=== PATIENT | female | born 1950 | race Hispanic/Latino ===

== ENCOUNTER 2017-10-07 18:47 | Inpatient (IN) | payer MEDICARE, MEDICAID ==
[2017-10-07] MEDS ORDERED: Ondansetron ODT 4 MG TAB ONE (19:38)
[2017-10-07] MEDS ORDERED: Morphine 4 MG/ML VIAL ONE (19:38)
[2017-10-07 19:40] LABS: Mean Corpuscular Hemoglobin 30.8 pg (27.0-31.0); Mean Corpuscular Volume 90.5 fl (81.0-99.0); Mean Platelet Volume 9.2 fL (7.4-10.4); Platelet Count 163 thou/uL (130-400); RBC Distribution Width 12.3 % (11.5-14.5); Red Blood Cell (RBC) Count 4.55 mill/uL (4.20-5.40); White Blood Cell (WBC) Count 21.4 thou/uL (4.8-10.8)
[2017-10-07 19:45] LABS: Bilirubin Negative (Negative); Blood, Urine Small (Negative); Clarity CLOUDY (Clear); Glucose, Urine (Dipstick) 500 mg/dL (Negative); Leukocyte Moderate (Negative); Nitrite Negative (Negative); Protein, Urine (Dipstick) 300 mg/dL (Neg-Trace); Specific Gravity, Urine 1.023 (1.002-1.036); pH, Urine 7.5 (5.0-9.0)
[2017-10-07 19:48] LABS: Bacteria/HPF None Seen HPF (None Seen); Hyaline Casts/LPF 0-3 HYALINE CAST LPF (0-3 Hyaline); Pathc Cast-AUWi Flag 0.87 (0-2.49); Squamous Epithelial 0-3 HPF (0-3)
[2017-10-07 19:52] LABS: Yeast-AUWi Flag 95.5 (0-25.0)
[2017-10-07 19:58] LABS: Band 12 % (5-11); Lymphocytes 1 % (21-51); MDiff Complete? YES; Monocytes 4 % (0-10); Neutrophil 81 % (42-75); PLT Morphology Comment Appears Adequate; Reactive Lymphocytes 2 % (0-10)
[2017-10-07 19:59] LABS: ALT (SGPT) 24 U/L (8-55); AST (SGOT) 29 U/L (5-34); Albumin 3.9 g/dL (3.4-4.8); Alkaline Phosphatase 130 U/L (40-150); Anion Gap 12 mmol/L (10-20); BUN (Urea Nitrogen) 20 mg/dL (9.8-20.1); Bilirubin, Total 0.4 mg/dL (0.2-1.2); Calc. Creatinine Clearance 0 mL/min (70-130); Calcium 9.3 mg/dL (7.8-10.44); Carbon Dioxide 27 mmol/L (23-31); Chloride 100 mmol/L (98-107); Estimated GFR-MDRD 26; Globulin 3.1 g/dL (2.4-3.5); Glucose 248 mg/dL (80-115); Lipase 33 U/L (8-78); Potassium 3.6 mmol/L (3.5-5.1); Sodium 135 mmol/L (136-145)
[2017-10-07 20:01] LABS: RBC/HPF 0-3 HPF (0-3); Yeast-All Forms None Seen HPF (None Seen)
[2017-10-07] MEDS ORDERED: cefTRIAXone\\ROCEPHIN 1 GM VIAL ONE (21:07)
--- NOTE | 2017-10-07 21:10 | RAD ---
SINGLE VIEW OF THE CHEST 10/07/17 COMPARISON: None. HISTORY: Abdominal pain with vomiting. Hypoxia. FINDINGS: Single view of the chest shows a normal sized cardiomediastinal silhouette. There is no evidence of c onsolidation, mass, or pleural effusion. The bones are unremarkable. IMPRESSION: No evidence of acute cardiopulmonary disease. POS: [facility]
[2017-10-07 21:22] LABS: CKMB 1.1 ng/mL (0-6.6); Troponin I Less than 0.010 ng/mL (< 0.028)
--- NOTE | 2017-10-07 22:43 | CT ---
CT ABDOMEN AND PELVIS WITHOUT CONTRAST 10/07/17 COMPARISON: None. HISTORY: Lower abdominal pain with vomiting since last night. Vaginal bleeding. TECHNIQUE: Multiple contiguous axial images were obtained in a CT of the abdomen and pelvis without contrast. Co kenna reformats were performed. FINDINGS: The liver, gallbladder, kidneys, adrenal glands, spleen, and pancreas are unremarkable, although eval uation is limited without IV contrast. No free air, free fluid or stranding changes are seen in the a bdomen or pelvis. The large and small bowel are unremarkable. The reproductive organs are unremarkable. The appendix is normal. No abdominal or pelvic lymphadenopathy are seen. Degenerative changes are seen in the spine. The visualized inferior thorax and abdominal wall soft ti ssues are unremarkable. IMPRESSION: No evidence of acute intra-abdominal/pelvic abnormality. POS: [facility]
[2017-10-07 22:45] LABS: Lactic Acid 1.5 mmol/L (0.5-2.2)
[2017-10-07] MEDS ORDERED: Acetaminophen 325 MG TAB PO PRN (23:14)
[2017-10-07] MEDS ORDERED: Ondansetron ODT 4 MG TAB SL PRN (23:14)
[2017-10-07] MEDS ORDERED: Ondansetron HCl/PF 4 MG/2 ML Vial IVP PRN (23:14)
[2017-10-08] MEDS ORDERED: Dextrose 50% Abboject 50 ML SYRINGE SLOW IVP PRN (00:59)
[2017-10-08] MEDS ORDERED: Mag-Al 1200 mg/1200 mg/30 ML UDCUP PO PRN (00:59)
[2017-10-08] MEDS ORDERED: HumaLOG 300 UNITS/3 ML VIAL SC PRN (00:59)
[2017-10-08] MEDS ORDERED: Acetaminophen 325 MG TAB PO PRN (00:59)
[2017-10-08] MEDS ORDERED: Ondansetron HCl/PF 4 MG/2 ML Vial IVP PRN (00:59)
[2017-10-08] MEDS ORDERED: Dextrose 5% in Water 1,000 ML IV PRN (00:59)
[2017-10-08] MEDS ORDERED: Cefepime 1 GM in Sodium Chloride 0.9% 100 ML IVPB SCH (01:15)
[2017-10-08] MEDS ORDERED: Levofloxacin 750 mg/D5W 250 MG in Premix Bag 1 BAG IVPB SCH (01:15)
[2017-10-08] MEDS ORDERED: VANCOMYCIN IVPB PRN (01:49)
[2017-10-08] MEDS: Sodium Chloride 0.9% 1,000 ML IV SCH ×3 (02:06→15:28)
--- NOTE | 2017-10-08 04:17 | HP ---
REASON FOR ADMISSION: Sepsis, acute kidney injury, urinary tract infection. HISTORY OF PRESENT ILLNESS: The patient gives history of having severe vomiting episodes. She states she almost threw up nearly 20 times and was essentially gagging the last few times with nothing in her stomach. During one of these episodes around 4:00 p.m., patient passed blood from her vagina due to pressure from vomiting. She is menopausal from last 20 years or so now. No complaints of diarrhea. She has increased frequency of urination. The patient also mentions that from last 2 weeks she has had off and on swelling of her feet. No complaints of fever at home, but on arrival here had a temperature of 99 degrees. No complaints of cough or expectoration. The patient has some mild shortness of breath. PAST MEDICAL AND SURGICAL HISTORY: Hypertension, dyslipidemia, diabetes mellitus type 2, left foot surgery, depression. The patient is menopausal from last 20 years. CURRENT MEDICATIONS: Norvasc 5 mg p.o. q.a.m., simvastatin 5 mg p.o. at bedtime , omeprazole 40 mg p.o. daily, Humalog 75/25, 70 units q.a.m. and 40 units q.p.m. ALLERGIES: No known drug allergies. PERSONAL HISTORY: Does not abuse alcohol or drugs. No history of smoking. FAMILY HISTORY: Mother in her 80s from old age. Father in his 80s as well. He has had history of diabetes. CODE STATUS: FULL. Power of employee benefits attorney is her . REVIEW OF SYSTEMS: The following complete review of systems was negative, unless otherwise mentioned in the HPI or below: Constitutional: Weight loss or gain, ability to conduct usual activities. Skin: Rash, itching. Eyes: Double vision, pain. ENT/Mouth: Nose bleeding, neck stiffness, pain, tenderness. Cardiovascular: Palpitations, dyspnea on exertion, orthopnea. Respiratory: Shortness of breath, wheezing, cough, hemoptysis, fever or night sweats. Gastrointestinal: Poor appetite, abdominal pain, heartburn, nausea, vomiting, constipation, or diarrhea. Genitourinary: Urgency, frequency, dysuria, nocturia. Musculoskeletal: Pain, swelling. Neurologic/Psychiatric: Anxiety, depression. Allergy/Immunologic: Skin rash, bleeding tendency. PHYSICAL EXAMINATION: GENERAL: The patient is a 67-year-old female who is currently not in any acute distress, but is lethargic. VITAL SIGNS: Blood pressure 186/84, pulse 84 per minute, respiratory rate 20 per minute, temperature 99 degrees Fahrenheit, saturating 91% on room air. NECK: Supple, no elevated JVD. HEENT: Eyes: Extraocular muscles intact. Pupils reacting to light. Oral cavity: Mucous membranes are dry. No exudates or congestion. CARDIOVASCULAR SYSTEM: S1, S2 heard. Regular rhythm. RESPIRATORY SYSTEM: Air entry 1+ bilateral. No rales or rhonchi. ABDOMEN: Soft, bowel sounds heard. No tenderness, rigidity, or guarding. No CVA angle tenderness. EXTREMITIES: No peripheral edema or calf tenderness. VASCULAR SYSTEM: Peripheral pulses 1+ bilateral, no ischemic ulcerations or gangrene. CENTRAL NERVOUS SYSTEM: No gross focal deficits seen. The patient is lethargic , but oriented well. PSYCHIATRIC SYSTEM: The patient's mood is euthymic. No hallucinations or delusions. LABORATORY DATA AND X-RAY FINDINGS: Chest x-ray done shows no acute cardiopulmonary abnormalities. CT of the abdomen and pelvis without contrast done shows no acute abnormality. Has a white count of 21, H and H 14 and 41, platelet count 163 with 81% neutrophils and 12% bands. Sodium 135, serum bicarbonate 27, BUN 20, creatinine 1.9, glucose 248. Lactic acid 2.9. Liver enzymes are within normal limits. Troponin I is less than 0.01. CK-MB 1.1. Albumin is 3.9. Lipase is 33. UA shows moderate leukoesterase, with greater than 50 wbc's. Stool occult blood is negative. CLINICAL IMPRESSION AND PLAN: The patient will be admitted to medical floor for sepsis, acute kidney injury, urinary tract infection, moderate to severe dehydration with intractable nausea and vomiting with no diarrhea. Blood and urine cultures have been obtained in the ER. We will place her on broad spectrum antibiotics including cefepime, Levaquin, and vancomycin for now until preliminary cultures are back. She has gotten nearly 2 liters of bolus in the ER and we will place her on normal saline at 80 mL per hour. She is saturating around 91% on room air and we will not volume overload her for now. We will obtain echo with 2D Doppler for LV function. The patient has postmenopausal bleeding and we will obtain ultrasound of the pelvis complete both abdominal and transvaginal. We will also consult LACROSSE COACH investigation division sergeant for the same. We will continue her Norvasc and reduce her 70/30 insulin to 25 units subcutaneously twice daily for now. We will continue to closely monitor her for any hemodynamic compromise. Please note I have seen and examined patient on 2017. TIFFANY
[2017-10-08 05:22] VITALS: BMI 34.0
[2017-10-08 05:54] LABS: Anion Gap 11 mmol/L (10-20); BUN (Urea Nitrogen) 21 mg/dL (9.8-20.1); Calc. Creatinine Clearance 52 mL/min (70-130); Calcium 8.8 mg/dL (7.8-10.44); Carbon Dioxide 23 mmol/L (23-31); Chloride 107 mmol/L (98-107); Estimated GFR-MDRD 38; Glucose 249 mg/dL (80-115); Potassium 4.6 mmol/L (3.5-5.1); Sodium 136 mmol/L (136-145)
[2017-10-08 06:28] LABS: Band 14 % (5-11); Hemoglobin 12.8 g/dL (12.0-16.0); Lymphocytes 8 % (21-51); MDiff Complete? YES; Mean Corpuscular HGB CONC 33.3 g/dL (32.0-36.0); Mean Corpuscular Hemoglobin 30.6 pg (27.0-31.0); Mean Corpuscular Volume 91.9 fl (81.0-99.0); Mean Platelet Volume 9.8 fL (7.4-10.4); Monocytes 6 % (0-10); Neutrophil 72 % (42-75); Platelet Count 164 thou/uL (130-400); RBC Distribution Width 12.4 % (11.5-14.5); Red Blood Cell (RBC) Count 4.17 mill/uL (4.20-5.40); White Blood Cell (WBC) Count 25.1 thou/uL (4.8-10.8)
[2017-10-08] MEDS: Docusate 100 MG CAP PO SCH ×2 (08:46→20:09)
[2017-10-08] MEDS: Amlodipine 5 MG TAB PO SCH (08:47)
[2017-10-08] MEDS: Insulin NPH/Reg Insulin Hm 300 UNITS/3 ML VIAL SC SCH ×2 (08:48→20:28)
[2017-10-08] MEDS ORDERED: Famotidine 20 MG TAB PO SCH (09:00)
[2017-10-08] MEDS ORDERED: Enoxaparin Sodium 30 MG/0.3 ML SYRINGE SC SCH (09:00)
[2017-10-08] MEDS ORDERED: Vancomycin HCl 1 GM in Sodium Chloride 0.9% 250 ML 250 ML IVPB SCH (09:00)
[2017-10-08] MEDS: Guaifenesin DM 100-10/5 ML UDCUP PO PRN (09:56)
--- NOTE | 2017-10-08 10:27 | ULT ---
PELVIC ULTRASOUND: History: Vaginal bleeding. Menopausal female. Comparison: CT abdomen/pelvis 10-07-17. Technique: Endovaginal imaging of the pelvis was performed. Ovaries were interrogated with grayscale, color flow, color doppler imaging and spectral waveform analysis. FINDINGS: The uterus is identified. There are patchy echogenic areas suggesting calcifications, corresponding t o recent CT. Endometrium is poorly defined. No obvious myometrial masses. Uterus measures 8.2 x 4.3 x 4.3 cm. Right ovary is not appreciated. Left ovary has a normal echotexture measuring 1.2 x 1.2 x 2.4 cm. Ovarian doppler: Vascular flow to the left ovary. IMPRESSION: 1. No obvious masses in the adnexa. 2. Suboptimal evaluation of the uterus. No obvious myometrial masses. Echogenic foci compatible with recent calcification. 3. Suboptimal evaluation of the endometrium. Given patient's history, consider pelvic MRI. POS: [facility]
[2017-10-08] MEDS ORDERED: Promethazine HCl 25 MG/ML VIAL IM/IV PRN (12:10)
[2017-10-08] MEDS: HumaLOG 300 UNITS/3 ML VIAL SC PRN ×2 (15:18→17:03)
--- NOTE | 2017-10-08 16:08 | PDOC.PN ---
- Subjective Encounter Start Date: 10/08/17 Encounter Start Time: 16:06 patient still very nauseous. no abd pain. chest pain or SOB. she has not vomited but feels she might. - Objective Resuscitation Status: Resuscitation Status FULL:Full Resuscitation MAR Reviewed: Yes Vital Signs & Weight: Vital Signs (12 hours) Temp Pulse Resp BP BP BP Pulse Ox 10/08/17 12:45 98.1 F 71 18 151/68 H 95 10/08/17 08:47 74 167/73 H 10/08/17 08:30 97.9 F 74 16 167/73 H 95 10/08/17 08:25 97.9 F 74 16 95 Weight Weight 186 lb 1.6 oz I&O: 10/07/17 10/08/17 10/09/17 06:59 06:59 06:59 Intake Total 1010 120 Balance 1010 120 Result Diagrams: 10/08/17 05:09 10/08/17 05:09 Additional Labs: Accuchecks 10/08/17 10/08/17 11:59 05:11 POC Glucose 262 H 224 H Phys Exam - Physical Examination Constitutional: NAD HEENT: moist MMs Neck: no nodes, no JVD, supple Respiratory: no wheezing, no rales, no rhonchi Cardiovascular: RRR, no significant murmur, no rub Gastrointestinal: soft, non-tender, no distention Musculoskeletal: no edema, pulses present Neurological: non-focal, normal sensation, moves all 4 limbs Psychiatric: normal affect, A&O x 3 Dx/Plan (1) Sepsis Code(s): A41.9 - SEPSIS, UNSPECIFIED ORGANISM Status: Acute Qualifiers: Sepsis type: sepsis due to unspecified organism Qualified Code(s): A41.9 - Sepsis, unspecified organism Comment: on broad spectrum abx of vanc/cefepime. likely urinary source. Bcx so far negative. Urine cx with evidence of contamination. will re-collect. white count increased today. (2) Diabetes mellitus Code(s): E11.9 - TYPE 2 DIABETES MELLITUS WITHOUT COMPLICATIONS Status: Acute Qualifiers: Diabetes mellitus type: type 2 Comment: continue 70/30 insulin (3) RICHELLE (acute kidney injury) Code(s): N17.9 - ACUTE KIDNEY FAILURE, UNSPECIFIED Status: Acute Comment: continue to hydrate. likely 2/2 to sepsis. and dehydration (4) HTN (hypertension) Code(s): I10 - ESSENTIAL (PRIMARY) HYPERTENSION Status: Acute Comment: continue norvasc (5) HLD (hyperlipidemia) Code(s): E78.5 - HYPERLIPIDEMIA, UNSPECIFIED Status: Acute Qualifiers: Hyperlipidemia type: pure hypercholesterolemia Qualified Code(s): E78.00 - Pure hypercholesterolemia, unspecified; E78.0 - Pure hypercholesterolemia Comment: continue statin - Plan cont current plan of care, plan discussed w/ family, continue antibiotics * . -continue IV vanc/cefepime. watch white count. it did trend up today. continue hydration with IVF monitor Cr HTN: cont norvasc vaginal bleeding: FLOAT REMOVER consult appreciated type II diabetes: continue 70/30 insulin HLD: cont statin. re-collect Ucx as first one appears to be contaminated.
--- NOTE | 2017-10-08 18:53 | CON ---
DATE OF CONSULTATION: 10/08/2017 TIME OF EVALUATION: Roughly 15:55-16:10 LOCATION: [facility] bed 135 in the observation shankar/oncology shankar. REASON FOR EVALUATION: Postmenopausal vaginal bleeding (one episode) by report REQUESTING PHYSICIAN: Dr. Hermila Romero HISTORY OF PRESENT ILLNESS: This is a 67-year-old postmenopausal female who has been admitted for pe rsistent nausea/vomiting by Internal Medicine. She has been receiving antiemetics and IV hydration. Her admission diagnoses according to the hospital is suspected sepsis, acute renal injury, UTI, and moderate to severe dehydration with intractable nausea and vomiting. I was asked to evaluate the pat ient because according to the patient's history yesterday during the intensive vomiting episodes, the re was a small amount of vaginal bleeding after cleaning the vaginal area with tissue. According to the patient, this happened one time yesterday and has not happened since. There has also been no his tory of persistent postmenopausal vaginal bleeding. She is not on hormone replacement therapy and spears s not seen a bell spinner sousaphones for 7 years. She has been menopausal for approximately 20 years. There ar e no complaints of diarrhea or vaginal burning or abnormal vaginal discharge. The patient states yamilet t she has had fevers at home prior to arrival, but on arrival here in the emergency department, she h ad a temperature of 99 degrees. She does not acknowledge any trauma to the vaginal area. PAST MEDICAL AND SURGICAL HISTORY: Includes hypertension, dyslipidemia, diabetes type 2, left foot s urgery, and past history of depression. GYNECOLOGICAL HISTORY: The patient is not on hormone replacement therapy and has been menopausal for about 20 years. CURRENT MEDICATIONS: Include Norvasc, simvastatin, omeprazole, Humalog. ALLERGIES: None. SOCIAL HISTORY: Negative for alcohol or drug use. No history of smoking. REVIEW OF SYSTEMS: Complete review of systems was performed and is otherwise negative unless specifi ed in the HPI. PHYSICAL EXAMINATION: VITAL SIGNS: Temperature of 97.9-98.1, blood pressures are elevated at 151/68 to a maximum value of 167/73. Pulse is in the 70s-80s. I evaluated the patient at bedside with a nurse present as motion pictures cartoonist. Abdomen was soft and nontender . Inspection of the external genitalia revealed no evidence of bleeding and outside of the external genital atrophy, no overt abnormalities. There was no vaginal bleeding or lacerations or ulcers. On e finger insertion into the vaginal canal was done to palpate for any abnormalities, masses, or evide nce of blood. No masses were palpated and no blood was found. Speculum examination was not performe d as the patient was lying down in the hospital bed and foot rests/stirrups were not available. LABORATORY DATA: The patient had an initial white blood cell count of 21 yesterday and today, white blood cell count is 25. While initially there was a left shift yesterday. Today, the neutrophils ar e 72, but she does have bandemia with total bands at 14 today. On laboratory assessment, her creatin ine on admission was 1.9 and today, repeat value was 1.38. Troponin I was normal. AST and ALT were normal. The initial lactic acid was elevated at 2.9, but on recheck yesterday was 1.5. On the urina lysis, glucose was 500, urine protein was 300, leuk esterase was negative, there was greater than 50 white blood cells in the urine, but no bacteria actually seen. On microbiology, a urine culture was submitted with preliminary results showing greater than 100,000 mixed skin and enteric ping being pr esent. Laboratory report shows possible contamination from improper collection or delayed transport. Blood cultures have shown no growth to date. Occult blood of the stool was also sent, which was ne gative for fecal occult blood. On ultrasound performed on 10/08/2017, ultrasound showed no obvious masses in the adnexa. There was suboptimal evaluation of the uterus, but no obvious myometrial masses. The endometrium was poorly de fined. There was no obvious myometrial abnormalities. The uterus measured 8 x 4 x 4 cm. Yesterday, the abdominal pelvic CT scan, which was ordered by the other physicians showed no evidence of acute intra-abdominal or pelvic abnormality. ASSESSMENT: This is a postmenopausal patient with severe nausea and vomiting of unclear etiology, be ing evaluated and treated by Internal Medicine. She had one episode of "vaginal blood" after wiping with tissue yesterday after an episode of emesis. If this was of vaginal etiology, vaginal atrophy i s likely the cause. There is no evidence of vaginal/cervical uterine masses at this time. PLAN: 1. Information given to the patient and her family. 2. Case reviewed with the patient's nurse as well. 3. If this occurs again, we will follow up with [facility] [place] or any area WORKING MANAGER for a more comprehensive vaginal examination. 4. Current evaluation was limited by the patient not having a bed of stirrups/foot rest. 5. No acute gynecological pathology at this time. 6. No evidence of acute postmenopausal bleeding.
[2017-10-08] MEDS: Famotidine 20 MG TAB PO SCH ×2 (20:07→20:09)
[2017-10-08] MEDS: Simvastatin 5 MG TAB PO SCH (20:10)
[2017-10-09] MEDS: Cefepime 1 GM in Sodium Chloride 0.9% 100 ML IVPB SCH ×2 (00:09→23:46)
[2017-10-09] MEDS ORDERED: Cefepime 1 GM in Sodium Chloride 0.9% 100 ML IVPB SCH (01:00)
[2017-10-09 01:53] LABS: Vancomycin, Random 14.2 ug/mL (See Comment)
[2017-10-09] MEDS ORDERED: Vancomycin HCl 750 MG in Sodium Chloride 0.9% 250 ML 250 ML IVPB SCH (02:00)
[2017-10-09 05:35] LABS: Band 1 % (5-11); Hemoglobin 12.3 g/dL (12.0-16.0); Lymphocytes 19 % (21-51); MDiff Complete? YES; Mean Corpuscular HGB CONC 32.9 g/dL (32.0-36.0); Mean Corpuscular Hemoglobin 30.5 pg (27.0-31.0); Mean Platelet Volume 9.1 fL (7.4-10.4); Monocytes 4 % (0-10); Neutrophil 76 % (42-75); PLT Morphology Comment Appears Adequate; Platelet Count 154 thou/uL (130-400); RBC Distribution Width 12.6 % (11.5-14.5); Red Blood Cell (RBC) Count 4.03 mill/uL (4.20-5.40); White Blood Cell (WBC) Count 15.8 thou/uL (4.8-10.8)
[2017-10-09 05:39] LABS: Anion Gap 8 mmol/L (10-20); BUN (Urea Nitrogen) 18 mg/dL (9.8-20.1); Calc. Creatinine Clearance 57 mL/min (70-130); Calcium 8.7 mg/dL (7.8-10.44); Carbon Dioxide 25 mmol/L (23-31); Chloride 110 mmol/L (98-107); Estimated GFR-MDRD 42; Glucose 150 mg/dL (80-115); Potassium 4.6 mmol/L (3.5-5.1); Sodium 138 mmol/L (136-145)
[2017-10-09] MEDS: Amlodipine 5 MG TAB PO SCH (09:05)
[2017-10-09] MEDS: Docusate 100 MG CAP PO SCH ×2 (09:05→21:19)
[2017-10-09] MEDS: Insulin NPH/Reg Insulin Hm 300 UNITS/3 ML VIAL SC SCH ×2 (09:06→21:17)
[2017-10-09] MEDS: Enoxaparin Sodium 40 MG/0.4 ML SYRINGE SC SCH (09:06)
[2017-10-09] MEDS: Famotidine 20 MG TAB PO SCH ×2 (09:06→21:19)
[2017-10-09] MEDS: Guaifenesin DM 100-10/5 ML UDCUP PO PRN (09:07)
[2017-10-09] MEDS: Sodium Chloride 0.9% 1,000 ML IV SCH ×2 (09:13→14:59)
[2017-10-09] MEDS: HumaLOG 300 UNITS/3 ML VIAL SC PRN ×2 (12:46→16:55)
--- NOTE | 2017-10-09 12:50 | MRI ---
MRI PELVIS WITH AND WITHOUT CONTRAST: HISTORY: Postmenopausal bleeding. COMPARISON: The ultrasound of 10/08/17. FINDINGS: Endometrium is thin, measuring less than 4 mm. No intramural fibroid. No subsclerosal fibroids appr eciated. There are few nabothian cysts of the cervix, although the cervix normal. No abnormal focal area of e nhancement within the endometrial cavity. Normal enhancement of the mucosa of the cervix. 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 This area is T2 hypointense sugges ting a flow void. It measures approximately 9 mm. Left ovary is along the posterior margin of the left side of the uterus. No abnormal ovarian mass. There is advanced degenerative disk space disease at L4-5 along with facet arthrosis causing moderate to severe left and moderate right-side neural foraminal narrowing. There is also some narrowing of the thecal sac measuring approximately 8 mm. Visualized rectum has a focal area of thickening and na rrowing approximately 6 cm from the anal verge. No adenopathy. The uterine junctional zone is normal. No evidence of adenomyosis. Appropriate flow voids of the il iac vessels. IMPRESSION: 1. Normal appearance of the endometrium. No endometrial or cervical mass is appreciated. 2. Abnormal nearly circumferential thickening of the rectum 6 cm from the anal verge. This is bev rning for a possible malignant process. Recommend correlation with patient's colonoscopic evaluation . 3. Moderate degenerative disk space disease of the lower lumbar spine. POS: [facility]
--- NOTE | 2017-10-09 15:50 | PDOC.PN ---
- Subjective Encounter Start Date: 10/09/17 Encounter Start Time: 15:48 patient is feeling much better. no more nausea or vomiting. she is eating. no SOB, chills, - Objective Resuscitation Status: Resuscitation Status FULL:Full Resuscitation MAR Reviewed: Yes Vital Signs & Weight: Vital Signs (12 hours) Temp Pulse Resp BP BP Pulse Ox 10/09/17 09:05 75 184/74 H 10/09/17 07:30 98.3 F 75 18 184/74 H 98 Weight Weight 186 lb 1.6 oz I&O: 10/08/17 10/09/17 10/10/17 06:59 06:59 06:59 Intake Total 1010 1820 Balance 1010 1820 Result Diagrams: 10/09/17 05:05 10/09/17 05:05 Additional Labs: Accuchecks 10/09/17 10/09/17 10/08/17 11:47 05:32 19:56 POC Glucose 226 H 141 H 338 H 10/08/17 16:52 POC Glucose 339 H Phys Exam - Physical Examination HEENT: moist MMs, sclera anicteric Neck: no nodes, no JVD, supple Respiratory: no wheezing, no rales, no rhonchi Cardiovascular: RRR, no significant murmur, no rub Gastrointestinal: soft, non-tender, no distention Musculoskeletal: no edema, pulses present Lymphatic: no nodes Dx/Plan (1) Sepsis Code(s): A41.9 - SEPSIS, UNSPECIFIED ORGANISM Status: Acute Qualifiers: Sepsis type: sepsis due to unspecified organism Qualified Code(s): A41.9 - Sepsis, unspecified organism Plan: white count down. d/c vanc/levaquin. cont cefepime. however, Ucx repeat NGTD. first Ucx with contamination, peripheral Bcx negative Comment: better/. will d/c vanc/levaquin today. leave cefepime. . likely urinary source. Bcx so far negative. Urine cx with evidence of contamination. repeat Ucx unfortunately shows no growth given already on abx . WBC count decreased today (2) Diabetes mellitus Code(s): E11.9 - TYPE 2 DIABETES MELLITUS WITHOUT COMPLICATIONS Status: Acute Qualifiers: Diabetes mellitus type: type 2 Comment: continue 70/30 insulin (3) RICHELLE (acute kidney injury) Code(s): N17.9 - ACUTE KIDNEY FAILURE, UNSPECIFIED Status: Acute Comment: continue to hydrate. likely 2/2 to sepsis. and dehydration . Cr improved today (4) HTN (hypertension) Code(s): I10 - ESSENTIAL (PRIMARY) HYPERTENSION Status: Acute Qualifiers: Hypertension type: essential hypertension Qualified Code(s): I10 - Essential (primary) hypertension Comment: continue norvasc (5) HLD (hyperlipidemia) Code(s): E78.5 - HYPERLIPIDEMIA, UNSPECIFIED Status: Acute Qualifiers: Hyperlipidemia type: pure hypercholesterolemia Qualified Code(s): E78.00 - Pure hypercholesterolemia, unspecified; E78.0 - Pure hypercholesterolemia Comment: continue statin (6) Abn findings-GI tract Code(s): R93.3 - ABNORMAL FINDINGS ON DX IMAGING OF PRT DIGESTIVE TRACT Status : Acute Comment: pelvic MRI demonstrated abn thickening of area of rectum/ anus. will consult GI. - Plan cont current plan of care, continue antibiotics * . downgrade abx with d/c of vanc/levaquin. cont cefepime. monitor white count. unfortunately Ucx all negative. will consult GI for abn on pelvic MRI. monitor renal function. hopefully d/c on orals. may need to empirically treat with cipro or vantin. f/u GI recs.
[2017-10-09] MEDS ORDERED: hydrALAZINE 20 MG/ML VIAL SLOW IVP PRN (20:35)
[2017-10-09] MEDS: Simvastatin 5 MG TAB PO SCH (21:19)
[2017-10-10] MEDS: Sodium Chloride 0.9% 1,000 ML IV SCH (02:00)
--- NOTE | 2017-10-10 03:13 | CON ---
DATE OF CONSULTATION: 10/09/2017 REASON FOR CONSULTATION: Abnormal GI imaging. CONSULTING PHYSICIAN: Hermila Romero MD HISTORY OF PRESENT ILLNESS: The patient is a 67-year-old female with past medical history of hyperte nsion, hyperlipidemia, diabetes, and depression who was initially admitted with increased nausea, vom iting, and abdominal pain. Per chart review, the patient was admitted with severe nausea and vomitin g, throwing up approximately 20 times prior to admission with expression of nonbloody emesis. With t he acute onset of this nausea and vomiting, she was also noted to have increased periumbilical abdomi nal pain and polyuria that prompted admission. On admission, she was noted to have a significantly e levated white blood cell count with increased neutrophils and bandemia concerning for probable infect ion. She was subsequently placed on broad-spectrum antibiotics as well as IV fluid administration, a nd has since been responding well to treatment over the last 24-48 hours. Currently, she states that she does continue to have some mild periumbilical abdominal pain, but it has much improved since adm ission. Currently, denies any nausea, vomiting, fevers, chills, dysphagia, odynophagia, or diarrhea. She has not been able to have a bowel movement since admission, but has been able to pass flatus. However, during the course of her hospitalization, she did have some mildly increased vaginal bleedin g that prompted the obtaining of an MRI of her abdomen and pelvis. Based on the imaging findings on that, there was some mild thickening of the rectal wall and narrowing 6 cm from the anal verge concer carmen for possible colonic pathology. REVIEW OF SYSTEMS: A 10-category review of systems was obtained with all responses negative except f or the pertinent positives as listed in the HPI. PAST MEDICAL HISTORY: As per HPI. PAST SURGICAL HISTORY: Left foot surgery. FAMILY HISTORY: She denies any GI malignancies. SOCIAL HISTORY: Currently denies any tobacco, alcohol, or illicit drug use. OUTPATIENT MEDICATIONS: Reviewed. ALLERGIES: No known drug allergies. PHYSICAL EXAMINATION: VITAL SIGNS: Temperature 98.8, pulse 81, blood pressure 193/74, respiratory rate 16, saturating 98% on room air. GENERAL: The patient is lying in bed in no acute distress. Alert and oriented x4. Chinese speaking only. NECK: Supple. No JVD noted. CARDIOVASCULAR: Regular rate and rhythm with no discernible murmurs, gallops, or rubs. RESPIRATORY: Clear to auscultation bilaterally with no discernible wheezes or rales. ABDOMEN: Normoactive bowel sounds. Soft, nondistended, but protuberant abdomen. Tenderness to palp ation in the periumbilical region. EXTREMITIES: 1+ bilateral lower extremity edema extending to mid contreras. LABORATORY DATA: CBC with a white blood cell count of 15.8, hemoglobin 12.3, hematocrit 37.5, platel ets 154. Chemistry with a sodium of 138, potassium 4.6, chloride 110, CO2 of 25, BUN 18, creatinine 1.26, glucose 150. IMAGING DATA: CT of the abdomen and pelvis was obtained on 10/07/2017 showing no acute intra-abdomin al or pelvic abnormality; however, MRI of the pelvis obtained on 10/09/2017 showed visualized rectum has a focal area of thickening and narrowing approximately 6 cm from the anal verge, no adenopathy. ASSESSMENT AND PLAN: The patient is a 67-year-old female with past medical history of hypertension, hyperlipidemia, diabetes, and depression presenting with abnormal gastrointestinal imaging. Abnormal gastrointestinal imaging. The patient initially presented with complaints of nausea, vomiti ng, and abdominal pain with an elevated white blood cell count with bandemia concerning for infectiou s process and/or sepsis. She has responded well to therapy including broad-spectrum antibiotics and IV fluid administration. However, during the course of this hospitalization, she was noted to have m ildly increased vaginal bleeding that prompted the MRI of her pelvis. On examination of her pelvis, it was noted that she might have some focal area of thickening and narrowing at 6 cm past the anal ve rge. Upon review of the patient's chart, she had a colonoscopy performed in 04/2015 with the finding s of only a small cecal and rectal polyp, both measuring less than 5 mm in size. The pathology repor t for the rectal polyp showed a diminutive sessile serrated adenoma that was completely excised withi n the chosen plane of sectioning. On rectal examination today, the patient does not have any polypoi d masses or increased pain with the digital rectal examination, but rather had a moderate amount of s olid brown stool within the rectal vault. At this point, given lack of findings on CT; possible find ings on MRI; no abnormalities noted on digital rectal examination; and no complaints of diarrhea, con stipation, or obstruction that might contribute to the findings seen on MRI, the MRI findings are mos t likely artifactual. RECOMMENDATIONS: 1. Continue to treat the patient as you are doing with IV fluids and broad-spectrum antibiotics for a probable infectious etiology of her abdominal pain. 2. Colonoscopy is not indicated at this time given the fairly negative findings on colonoscopy in , negative rectal examination, and conflicting imaging studies during this admission. 3. We would have the patient follow up in the GI clinic within 3 weeks of discharge for further eval uation and consider repeat colonoscopy at that time based on MRI findings. We will sign off at this time. Please call with any additional questions.
[2017-10-10 04:22] LABS: Anion Gap 10 mmol/L (10-20); BUN (Urea Nitrogen) 14 mg/dL (9.8-20.1); Calc. Creatinine Clearance 65 mL/min (70-130); Calcium 8.8 mg/dL (7.8-10.44); Carbon Dioxide 26 mmol/L (23-31); Chloride 107 mmol/L (98-107); Estimated GFR-MDRD 49; Glucose 88 mg/dL (80-115); Potassium 4.1 mmol/L (3.5-5.1); Sodium 139 mmol/L (136-145)
[2017-10-10 04:45] LABS: Eosinophils 1 % (0-10); Hemoglobin 12.6 g/dL (12.0-16.0); Lymphocytes 21 % (21-51); MDiff Complete? YES; Mean Corpuscular HGB CONC 33.1 g/dL (32.0-36.0); Mean Corpuscular Hemoglobin 30.3 pg (27.0-31.0); Mean Corpuscular Volume 91.7 fl (81.0-99.0); Mean Platelet Volume 8.7 fL (7.4-10.4); Monocytes 5 % (0-10); Neutrophil 72 % (42-75); PLT Morphology Comment Appears Adequate; Platelet Count 158 thou/uL (130-400); RBC Distribution Width 12.1 % (11.5-14.5); RBC Morphology Normal; Reactive Lymphocytes 1 % (0-10); Red Blood Cell (RBC) Count 4.15 mill/uL (4.20-5.40); White Blood Cell (WBC) Count 11.5 thou/uL (4.8-10.8)
[2017-10-10 08:32] VITALS: TEMP 98.6
[2017-10-10] MEDS: Docusate 100 MG CAP PO SCH (09:17)
[2017-10-10] MEDS: Famotidine 20 MG TAB PO SCH (09:17)
[2017-10-10] MEDS: Amlodipine 5 MG TAB PO SCH (09:18)
[2017-10-10] MEDS: Enoxaparin Sodium 40 MG/0.4 ML SYRINGE SC SCH (09:18)
[2017-10-10] MEDS: Insulin NPH/Reg Insulin Hm 300 UNITS/3 ML VIAL SC SCH (09:19)
[2017-10-10 09:27] VITALS: BP 150/74
--- NOTE | 2017-10-10 10:46 | DIS ---
DATE OF ADMISSION: 10/07/2017 DATE OF DISCHARGE: 10/10/2017 PRIMARY CARE PROVIDER: Bill Infante MD. DISCHARGE DIAGNOSES: Urinary tract infection, sepsis syndrome, acute kidney failure, resolved, diabe myra mellitus type 2, hypertension. DISCHARGE MEDICATIONS: The same as her home medications except for the Omnicef 300 mg p.o. b.i.d. fo r 14 days. She is also on Zocor 5 mg a day, omeprazole 40 mg a day, Norvasc 5 mg a day, Humulin 75/2 5 at 70 a.m. and 40 p.m. ALLERGIES: None. PENDING AT THE TIME OF DISCHARGE: Urine culture. CODE STATUS: FULL. DIET: Diabetic. HOSPITAL COURSE: The [facility] with nausea, vomiting, in creased urination with a history of hypertension, dyslipidemia, diabetes. She was admitted. Blood a nd urine cultures ordered and started on broad spectrum antibiotics and IV fluids. Her initial urine culture was greater than 100,000 mixed skin and enteric ping. Blood cultures were no growth. Stoo l for occult blood was negative. Urine culture done 10/08/2017 is negative at present. Laboratory d dunia, initial lactic acid 2.9 with IV fluids, lactic acid came down to 1.5 on the day of admission, cr eatinine is now 1.10. She had an elevated white count of 21,000 with a left shift. This has come do wn to 11,500. The patient states she feels well. Vital signs, temperature 98.6 with no fever since admission, pulse 81, respirations 18, O2 sat 92. Cardiorespiratory exam done by myself is clear. No focal findings. Good breath sounds, heart sounds regular with no murmurs. I discussed the situation with the family. They are comfortable with her going home. She is being discharged on Omnicef 300 mg p.o. b.i.d. I suspect the patient's contamina tion of her initial culture plus the multiple antibiotics she has been on before the second cultures rendered the second culture useless. Multiple studies were done during her hospital stay including a bdominal pelvic CT, which showed no intra-abdominal pelvic abnormality. Pelvic ultrasound, no masses in the adnexa. Incomplete evaluation of the uterus. Pelvic MRI was done, which revealed a normal u terus with no endometrial or cervical mass, some thickening of the rectum at 6 cm. A consultation [facility] Dr. Anthony Mathias was obtained. He recommended no further studies. She is being discharged on ora l antibiotics. Follow up in [address] Infante. FINAL DIAGNOSES: 1. Sepsis, most likely secondary to urinary tract infection, urinary tract infection culture negativ e today. 2. Acute kidney failure, resolved. 3. Diabetes mellitus type 2. 4. Hypertension. 5. Lactic acidosis, resolved.
== END 2017-10-10 11:07 | disposition home or self-care (01) | DRG 872 ==
LOC: ERS 18:47 → ONC 22:18
PROVIDERS: ADMIT Internal Medicine; ATTEND Internal Medicine
DX: A41.9 Sepsis, unspecified organism (principal); N17.9 Acute kidney failure, unspecified; N39.0 Urinary tract infection, site not specified; I10 Essential (primary) hypertension; E86.0 Dehydration; Z79.899 Other long term (current) drug therapy; E78.5 Hyperlipidemia, unspecified; E11.9 Type 2 diabetes mellitus without complications; F31.9 Bipolar disorder, unspecified; Z79.84 Long term (current) use of oral hypoglycemic drugs; R93.3 Abnormal findings on diagnostic imaging of other parts of digestive tract
CPT/HCPCS: 36415; 36416; 71045; 72197; 74176; 76856; 80048; 80053; 80202; 81003; 81015; 82274; 82553; 83605; 83690; 84484; 85007; 85025; 85027; 87040; 87086; 93005; 93306; 96361; 96365; 96375; A4216; J0360; J0692; J0696; J1650; J1956; J2270; J2405; J2550; J3370; J7050; Q0162

== ENCOUNTER 2018-03-13 09:27 | Outpatient (CLI) | payer MEDICARE, MEDICAID | END 2018-03-13 09:28 | disposition home or self-care (01) | LOC: BICMAMMO 09:27 | PROVIDERS: ATTEND Internal Medicine | DX: Z12.31 Encounter for screening mammogram for malignant neoplasm of breast (principal) | CPT/HCPCS: 77063; 77067 ==

== ENCOUNTER 2019-01-10 09:13 | Inpatient (IN) | payer MEDICARE, MEDICAID ==
[2019-01-10] MEDS ORDERED: Famotidine 20 MG TAB ONE (10:14)
[2019-01-10 10:26] LABS: #Eosinphils 0.2 thou/uL (0.0-0.7); #Lymphocytes 2.6 thou/uL (1.20-3.40); #Monocytes 0.8 thou/uL (0.11-0.59); #Neutrophils 5.3 thou/uL (1.40-6.50); %Basophils 0.3 % (0.0-1.0); %Eosinophils 2.1 % (0.0-10.0); %Lymphocytes 28.9 % (21.0-51.0); %Monocytes 8.6 % (0.0-10.0); %Neutrophils 60.1 % (42.0-75.0); Hemoglobin 12.5 g/dL (12.0-16.0); Mean Corpuscular HGB CONC 35.3 g/dL (32.0-36.0); Mean Corpuscular Hemoglobin 32.2 pg (27.0-31.0); Mean Corpuscular Volume 91.3 fL (78.0-98.0); Mean Platelet Volume 9.9 fL (7.4-10.4); Platelet Count 155 thou/uL (130-400); RBC Distribution Width 12.7 % (11.5-14.5); Red Blood Cell (RBC) Count 3.86 mill/uL (4.20-5.40); White Blood Cell (WBC) Count 8.8 thou/uL (4.8-10.8)
[2019-01-10 10:33] LABS: Bacteria/HPF 4+ HPF (None Seen); Bilirubin Negative (Negative); Blood, Urine 2+ (Negative); Clarity Clear (Clear); Glucose, Urine (Dipstick) Normal (Negative); Leukocyte 250 Leu/uL (Negative); Nitrite 2+ (Negative); Protein, Urine (Dipstick) 30 mg/dL (Neg-Trace); RBC/HPF Greater than 50 HPF (0-3); Squamous Epithelial 0-3 HPF (0-3); Urobilinogen Normal mg/dL (Less than 2); WBC/HPF 21-50 HPF (0-3)
[2019-01-10 10:35] LABS: ALT (SGPT) 16 U/L (8-55); AST (SGOT) 21 U/L (5-34); Albumin 3.8 g/dL (3.4-4.8); Alkaline Phosphatase 102 U/L (40-150); Anion Gap 12 mmol/L (10-20); BUN (Urea Nitrogen) 25 mg/dL (9.8-20.1); Bilirubin, Total 0.3 mg/dL (0.2-1.2); Calc. Creatinine Clearance 0 mL/min (70-130); Calcium 9.8 mg/dL (7.8-10.44); Carbon Dioxide 26 mmol/L (23-31); Chloride 105 mmol/L (98-107); Estimated GFR-MDRD 25; Globulin 2.9 g/dL (2.4-3.5); Glucose 122 mg/dL (80-115); Lipase 35 U/L (8-78); Potassium 4.4 mmol/L (3.5-5.1); Protein, Total 6.7 g/dL (6.0-8.3); Sodium 139 mmol/L (136-145)
[2019-01-10] MEDS ORDERED: cefTRIAXone\\ROCEPHIN 2 GM VIAL ONE (11:01)
[2019-01-10] MEDS ORDERED: Sodium Chloride 0.9% 100 ML ONE (11:02)
--- NOTE | 2019-01-10 11:40 | CT ---
EXAM: Abdomen and pelvic CT scan without contrast: HISTORY: Diarrhea weight loss COMPARISON: 10/07/2017 FINDINGS: Chronic appearing linear parenchymal changes in the lung bases and lingula. Postop changes at the GE junction region with small hiatal hernia and minimal GE junction wall thicke carmen. Liver: Unremarkable. Gallbladder:Unremarkable. Pancreas:Unremarkable Spleen:Unremarkable. Adrenal glands:Unremarkable. Kidneys:No overt renal calculus or acute obstruction. Prominent renal vascular calcifications. Sharon dence for air or gas with in the left upper collecting system and a large amount of air or gas within the urinary bladder. There is no evidence for left renal mass or abscess or perirenal fat stra nding. The urinary bladder wall is not thickened.No evidence for an obvious fistulous communication from the bladder to bowel. No solid or cystic renal mass. Fat-containing umbilical hernia. No evidence for bowel obstruction. No CT evidence for acute appendicitis. No abscess, adenopathy, or abnormal fluid collection within the abdomen or pelvis. IMPRESSION: Prominent abnormal amount of air within the urinary bladder and also in the left upper collecting sys tem. Given the lack of prior instrumentation, most likely concern is that of infection. Umbilical fat-containing hernia. Small hiatal hernia with some postop changes and minimal thickening at the GE junction region, nonspecific.
[2019-01-10] MEDS ORDERED: Ondansetron ODT 4 MG TAB PO PRN (13:14)
[2019-01-10] MEDS ORDERED: HYDROcodone/Acetaminophen 5/325 mg Tablet PO PRN (13:14)
[2019-01-10] MEDS ORDERED: Acetaminophen 325 MG TAB PO PRN (13:14)
[2019-01-10] MEDS ORDERED: Ondansetron PF 4 MG/2 ML Vial IVP PRN (13:14)
[2019-01-10] MEDS ORDERED: HYDROcodone/Acetaminophen 7.5/325 mg Tablet PO PRN (13:14)
[2019-01-10] MEDS ORDERED: Loperamide HCl 2 MG CAP PO PRN (13:14)
[2019-01-10] MEDS ORDERED: diphenhydrAMINE 25 MG CAP PO PRN (13:17)
[2019-01-10] MEDS ORDERED: Dextrose 5% in Water 1,000 ML IV PRN (13:18)
[2019-01-10] MEDS ORDERED: Dextrose 50% Abboject 50 ML SYRINGE SLOW IVP PRN (13:18)
[2019-01-10] MEDS ORDERED: HumaLOG 300 UNITS/3 ML VIAL SC PRN ×2 (13:18)
--- NOTE | 2019-01-10 13:48 | PDOC.HHP ---
Hospitalist HPI - History of Present Illness UTI, dehydration, diarrhea History of Present Illness: Very pleasant 68 year old female with PMHx of Insulin dependant diabetes mellitus, HTN, HLD, GERD, and frequent UTI presents with worsening UTI symptoms, diarrhea, and dehydration over the past 2 weeks. Patient has had 2 weeks of worsening urinary frequency, urgency, and dysuria. Patient has been having worsening diarrhea also for 2 weeks. Denies blood or black in stools. Denies sick contacts, no sick family members, or sick children. Since last discharge 2 months ago for UTI, patient has not been on any antibiotics. No new medications. Patient has had some abdominal pain and cramping with diarrhea. Patient was feeling dehydrated so her family brought her in for further evaluation and treatment. Patient found to have acute UTI and acute kidney injury. Patient admitted to medical/ surgical unit for further evaluation. Hospitalist ROS - Review of Systems Constitutional: reports: fever (Subjective), chills, sweats, weakness, malaise Eyes: denies: pain, vision change ENT: denies: ear pain, ear discharge, nose congestion, mouth pain, throat pain Respiratory: denies: cough, shortness of breath, hemoptysis, SOB with excertion Cardiovascular: denies: chest pain, palpitations, orthopnea, edema Gastrointestinal: reports: abdominal pain, diarrhea. denies: nausea, vomitting , constipation, melena, hematochezia Genitourinary: reports: dysuria, frequency, incontinence. denies: hematuria Musculoskeletal: reports: back pain. denies: leg pain, foot pain Skin: denies: rash, lesions Neurological: reports: weakness (generalized). denies: numbness, incoordination , change in speech Hospitalist History - Past Medical History Source: patient, family Cardiac: reports: HTN, Hyperlipidemia. denies: CAD, [place] Pulmonary: reports: high cholesterol, hypertension. denies: CVA/TIA/stroke, congestive heart failure, COPD NIGHT MANAGER: denies: CVA, Dementia, Migraine, Seizure Gastrointestinal: reports: GERD. denies: Inflam bowel disease Heme/Onc: denies: Cancer Psych: denies: Psychosis, Schizophrenia Musculoskeletal: reports: Chronic low back pain, Osteoarthritis Rheumatologic: denies: Rheumatoid arthritis Infectious Disease: denies: HIV Renal/: reports: Chronic renal insuff, UTI (Recurrent) Endocrine: reports: Diabetes Dermatology: denies: Melanoma, Basal cell - Family History Family History: reports: diabetes mellitus, hyperlipidemia, hypertension - Social History Smoking Status: Never smoker Alcohol: reports: None Drugs: reports: none Living Situation: With Family - Exam General Appearance: NAD, awake alert Eye: PERRL, anicteric sclera Eye - other findings: EOMI ENT: no oropharyngeal lesions, moist mucosa Neck: supple, symmetric Heart: no murmur, no gallops, no rubs Heart - other findings: S1 and S2 present Respiratory: CTAB, no wheezes, no rales, no ronchi, normal chest expansion Gastrointestinal: soft, non-tender, non-distended, normal bowel sounds, no palpable masses, no hepatomegaly, no guarding, no rigidity Extremities: no edema Skin: no lesions, no rashes Neurological: CN's grossly intact, no focal deficits, no new deficit Musculoskeletal: generalized weakness Psychiatric: normal affect, A&O x 3 Hospitalist Results - Labs Result Diagrams: 01/10/19 10:04 01/10/19 10:04 Lab results: WBC 8.8 thou/uL (4.8-10.8) 01/10/19 10:04 Hgb 12.5 g/dL (12.0-16.0) 01/10/19 10:04 Hct 35.3 % (36.0-47.0) L 01/10/19 10:04 MCV 91.3 fL (78.0-98.0) 01/10/19 10:04 Plt Count 155 thou/uL (130-400) 01/10/19 10:04 Neutrophils % 60.1 % (42.0-75.0) 01/10/19 10:04 Sodium 139 mmol/L (136-145) 01/10/19 10:04 Potassium 4.4 mmol/L (3.5-5.1) 01/10/19 10:04 Chloride 105 mmol/L (98-107) 01/10/19 10:04 Carbon Dioxide 26 mmol/L (23-31) 01/10/19 10:04 BUN 25 mg/dL (9.8-20.1) H 01/10/19 10:04 Creatinine 1.98 mg/dL (0.6-1.1) H 01/10/19 10:04 Glucose 122 mg/dL (80-115) H 01/10/19 10:04 Lactic Acid 1.1 mmol/L (0.5-2.2) 01/10/19 10:16 Calcium 9.8 mg/dL (7.8-10.44) 01/10/19 10:04 Total Bilirubin 0.3 mg/dL (0.2-1.2) 01/10/19 10:04 AST 21 U/L (5-34) 01/10/19 10:04 ALT 16 U/L (8-55) 01/10/19 10:04 Alkaline Phosphatase 102 U/L (40-150) 01/10/19 10:04 Serum Total Protein 6.7 g/dL (6.0-8.3) 01/10/19 10:04 Albumin 3.8 g/dL (3.4-4.8) 01/10/19 10:04 Lipase 35 U/L (8-78) 01/10/19 10:04 Urine Ketones Negative mg/dL (Negative) 01/10/19 10:10 Urine Blood 2+ (Negative) A 01/10/19 10:10 Urine Nitrite 2+ (Negative) A 01/10/19 10:10 Ur Leukocyte Esterase 250 Huey/uL (Negative) A 01/10/19 10:10 Urine RBC Greater than 50 HPF (0-3) A 01/10/19 10:10 Urine WBC 21-50 HPF (0-3) A 01/10/19 10:10 Ur Squamous Epith Cells 0-3 HPF (0-3) 01/10/19 10:10 Urine Bacteria 4+ HPF (None Seen) A 01/10/19 10:10 - Radiology Interpretation CT scan - abdomen Status: image reviewed by nj Hospitalist H&P A/P - Problem (1) UTI (urinary tract infection) Status: Acute (2) RICHELLE (acute kidney injury) Code(s): N17.9 - ACUTE KIDNEY FAILURE, UNSPECIFIED Status: Acute (3) Diabetes mellitus Code(s): E11.9 - TYPE 2 DIABETES MELLITUS WITHOUT COMPLICATIONS Status: Chronic Qualifiers: Diabetes mellitus type: type 2 (4) HLD (hyperlipidemia) Code(s): E78.5 - HYPERLIPIDEMIA, UNSPECIFIED Status: Chronic Qualifiers: Hyperlipidemia type: pure hypercholesterolemia Qualified Code(s): E78.00 - Pure hypercholesterolemia, unspecified; E78.0 - Pure hypercholesterolemia (5) HTN (hypertension) Code(s): I10 - ESSENTIAL (PRIMARY) HYPERTENSION Status: Chronic Qualifiers: Hypertension type: essential hypertension Qualified Code(s): I10 - Essential (primary) hypertension (6) Diarrhea Code(s): R19.7 - DIARRHEA, UNSPECIFIED Status: Acute - Plan Plan: Plan: Admit to Med/ surg UTI specific ABX with ceftriaxone Urine culture, de escalate to culture and sensitivity as able IV fluids for RICHELLE and dehydration Diarrhea likely viral, will add pro biotics to replenish gut ping NPH 70/30 at home dose, ISS - mild to control blood sugars Replace electrolytes as needed Continue other home meds as able GI PPX DVT PPX
[2019-01-10 17:13] VITALS: BMI 34.2
[2019-01-10] MEDS: Sodium Chloride 0.9% 1,000 ML IV SCH (19:04)
[2019-01-10] MEDS: hydrALAZINE 20 MG/ML VIAL SLOW IVP PRN (19:12)
[2019-01-10] MEDS: Lactinex Tablet PO SCH (20:34)
[2019-01-10] MEDS: Simvastatin 5 MG TAB PO SCH (22:28)
[2019-01-10] MEDS: HumuLIN 70/30 (300 UNITS/3 ML VIAL) SC SCH (22:39)
[2019-01-11 05:43] LABS: #Basophils 0.1 thou/uL (0.0-0.2); #Eosinphils 0.2 thou/uL (0.0-0.7); #Lymphocytes 2.5 thou/uL (1.20-3.40); #Monocytes 0.9 thou/uL (0.11-0.59); #Neutrophils 4.8 thou/uL (1.40-6.50); %Basophils 0.8 % (0.0-1.0); %Lymphocytes 29.3 % (21.0-51.0); %Monocytes 10.9 % (0.0-10.0); Hemoglobin 13.1 g/dL (12.0-16.0); Mean Corpuscular Hemoglobin 31.2 pg (27.0-31.0); Mean Corpuscular Volume 91.8 fL (78.0-98.0); Mean Platelet Volume 9.5 fL (7.4-10.4); Platelet Count 167 thou/uL (130-400); RBC Distribution Width 12.6 % (11.5-14.5); Red Blood Cell (RBC) Count 4.21 mill/uL (4.20-5.40); White Blood Cell (WBC) Count 8.4 thou/uL (4.8-10.8)
[2019-01-11 06:06] LABS: Anion Gap 12 mmol/L (10-20); BUN (Urea Nitrogen) 19 mg/dL (9.8-20.1); Calc. Creatinine Clearance 43 mL/min (70-130); Calcium 9.2 mg/dL (7.8-10.44); Carbon Dioxide 23 mmol/L (23-31); Chloride 109 mmol/L (98-107); Estimated GFR-MDRD 34; Glucose 80 mg/dL (80-115); Sodium 140 mmol/L (136-145)
[2019-01-11] MEDS: Sodium Chloride 0.9% 1,000 ML IV SCH ×3 (07:40→20:52)
[2019-01-11] MEDS: Amlodipine 5 MG TAB PO SCH (08:57)
[2019-01-11] MEDS: Famotidine 20 MG TAB PO SCH (08:57)
[2019-01-11] MEDS: Lactinex Tablet PO SCH (08:58)
[2019-01-11] MEDS: Enoxaparin Sodium 30 MG/0.3 ML SYRINGE SC SCH (08:58)
[2019-01-11] MEDS ORDERED: Prevnar 13-Val Conj/PF 0.5 ML SYRINGE IM ONE (09:00)
[2019-01-11] MEDS: HumuLIN 70/30 (300 UNITS/3 ML VIAL) SC SCH ×2 (09:00→20:46)
--- NOTE | 2019-01-11 11:11 | PDOC.HOSPP ---
- Subjective Subjective: Seen and examined. Clinically improved. Less UTI symptoms. Diarrhea improved. No longer feeling dehydrated. Overall patient feeling much better. Had back pain this AM, improved on current meds. No new complaints. - Objective Vital Signs & Weight: Vital Signs (12 hours) Temp Pulse Pulse Pulse Resp BP BP 01/11/19 11:08 98.5 F 70 16 01/11/19 09:20 67 74 167/77 H 01/11/19 08:57 70 151/70 H 01/11/19 08:00 98.1 F 70 16 01/11/19 04:42 01/11/19 04:03 98.0 F 70 16 BP BP Pulse Ox 01/11/19 11:08 158/67 H 96 01/11/19 09:20 171/81 H 01/11/19 08:57 01/11/19 08:00 151/70 H 94 L 01/11/19 04:42 173/77 H 01/11/19 04:03 182/81 H 94 L Weight Weight 175 lb I&O: 01/10/19 01/11/19 01/12/19 06:59 06:59 06:59 Intake Total 607 Output Total 650 Balance -43 Result Diagrams: 01/11/19 05:18 01/11/19 05:18 Additional Labs: Accuchecks 01/11/19 01/10/19 11:01 22:24 POC Glucose 141 H 224 H Radiology Reviewed by me: Yes (CT abdomen) Hospitalist ROS - Medication Medications: Active Medications Generic Name Dose Route Start Last Admin Trade Name Freq PRN Reason Stop Dose Admin Hydrocodone Bitart/Acetaminophen 1 tab 01/10/19 13:14 01/11/19 07:35 [place] 7.5/325 PO 1 tab Q4H PRN Administration Severe Pain (7-10) Acidophilus 1 tab 01/10/19 09:00 01/11/19 08:58 Floranex PO 1 tab DAILY PATRICK Administration Amlodipine Besylate 5 mg 01/11/19 09:00 01/11/19 08:57 Norvasc PO 5 mg DAILY PATRICK Administration Enoxaparin Sodium 30 mg 01/11/19 09:00 01/11/19 08:58 Lovenox SC 30 mg 0900 PATRICK Administration Famotidine 20 mg 01/11/19 09:00 01/11/19 08:57 Pepcid PO 20 mg DAILY PATRICK Administration Hydralazine HCl 10 mg 01/10/19 13:17 01/10/19 19:12 Apresoline SLOW IVP 10 mg Q4H PRN Administration Hypertension (SBP >180) Sodium Chloride 1,000 mls @ 75 mls/hr 01/10/19 13:15 01/11/19 07:40 Normal Saline 0.9% IV 1,000 mls .[id number] PATRICK Administration Insulin Human Isoph/Insulin Regular 40 units 01/10/19 21:00 01/10/19 22:39 Humulin 70/30 SC 40 unit QPM PATRICK Administration Insulin Human Isoph/Insulin Regular 70 units 01/11/19 09:00 01/11/19 09:00 Humulin 70/30 SC Not Given QAM PATRICK Ondansetron HCl 4 mg 01/10/19 13:14 01/11/19 09:03 Zofran IVP 4 mg Q6H PRN Administration Nausea/Vomiting Pantoprazole Sodium 40 mg 01/11/19 09:00 01/11/19 08:58 Protonix PO 40 mg DAILY PATRICK Administration Simvastatin 5 mg 01/10/19 21:00 01/10/19 22:28 Zocor PO 5 mg HS PATRICK Administration - Exam General Appearance: NAD, awake alert Eye: PERRL, anicteric sclera Eye - other findings: EOMI ENT: no oropharyngeal lesions, moist mucosa Neck: supple, symmetric Heart: RRR, no murmur, no gallops, no rubs Respiratory: CTAB, no wheezes, no rales, no ronchi, normal chest expansion Gastrointestinal: soft, non-tender, non-distended, no guarding, no rigidity Extremities: 1+ LE edema Skin: no lesions, no rashes Neurological: CN's grossly intact, no focal deficits, no new deficit Musculoskeletal: generalized weakness Musculoskeletal - other findings: No CVA ten Psychiatric: normal affect, A&O x 3 Hosp A/P (1) UTI (urinary tract infection) Status: Acute (2) RICHELLE (acute kidney injury) Code(s): N17.9 - ACUTE KIDNEY FAILURE, UNSPECIFIED Status: Acute (3) Diabetes mellitus Code(s): E11.9 - TYPE 2 DIABETES MELLITUS WITHOUT COMPLICATIONS Status: Chronic Qualifiers: Diabetes mellitus type: type 2 (4) HLD (hyperlipidemia) Code(s): E78.5 - HYPERLIPIDEMIA, UNSPECIFIED Status: Chronic Qualifiers: Hyperlipidemia type: pure hypercholesterolemia Qualified Code(s): E78.00 - Pure hypercholesterolemia, unspecified; E78.0 - Pure hypercholesterolemia (5) HTN (hypertension) Code(s): I10 - ESSENTIAL (PRIMARY) HYPERTENSION Status: Chronic Qualifiers: Hypertension type: essential hypertension Qualified Code(s): I10 - Essential (primary) hypertension (6) Diarrhea Code(s): R19.7 - DIARRHEA, UNSPECIFIED Status: Acute - Plan Plan Med/ Tel UTI specific ABX with Ceftriaxone Urine Cx prelim with e. coli, sensitivity pending RICHELLE improved with IV fluids Diarrhea improving Continue pro biotics to replenish gut ping Continue NPH 70/30 at home dose with ISS - mild to control prandial spikes Replace electrolytes as needed Continue other home meds as able GI and DVT PPX
[2019-01-11] MEDS: cefTRIAXone\\ROCEPHIN 2 GM in Sodium Chloride 0.9% 100 ML IVPB SCH (11:43)
[2019-01-11] MEDS: hydrALAZINE 20 MG/ML VIAL SLOW IVP PRN (16:51)
[2019-01-11] MEDS: Simvastatin 5 MG TAB PO SCH (20:45)
[2019-01-12 06:01] LABS: #Basophils 0.1 thou/uL (0.0-0.2); #Eosinphils 0.2 thou/uL (0.0-0.7); #Lymphocytes 2.7 thou/uL (1.20-3.40); #Monocytes 0.8 thou/uL (0.11-0.59); #Neutrophils 4.5 thou/uL (1.40-6.50); %Basophils 0.7 % (0.0-1.0); %Eosinophils 2.2 % (0.0-10.0); %Lymphocytes 32.8 % (21.0-51.0); %Monocytes 10.2 % (0.0-10.0); %Neutrophils 54.1 % (42.0-75.0); Hemoglobin 11.7 g/dL (12.0-16.0); Mean Corpuscular HGB CONC 33.5 g/dL (32.0-36.0); Mean Corpuscular Hemoglobin 30.1 pg (27.0-31.0); Mean Corpuscular Volume 89.9 fL (78.0-98.0); Mean Platelet Volume 9.7 fL (7.4-10.4); Platelet Count 170 thou/uL (130-400); RBC Distribution Width 12.5 % (11.5-14.5); Red Blood Cell (RBC) Count 3.88 mill/uL (4.20-5.40); White Blood Cell (WBC) Count 8.2 thou/uL (4.8-10.8)
[2019-01-12 06:17] LABS: Anion Gap 11 mmol/L (10-20); BUN (Urea Nitrogen) 15 mg/dL (9.8-20.1); Calc. Creatinine Clearance 49 mL/min (70-130); Calcium 8.6 mg/dL (7.8-10.44); Carbon Dioxide 24 mmol/L (23-31); Chloride 108 mmol/L (98-107); Estimated GFR-MDRD 39; Glucose 70 mg/dL (80-115); Potassium 3.9 mmol/L (3.5-5.1); Sodium 139 mmol/L (136-145)
[2019-01-12] MEDS: Amlodipine 5 MG TAB PO SCH (08:11)
[2019-01-12] MEDS: Enoxaparin Sodium 30 MG/0.3 ML SYRINGE SC SCH (08:11)
[2019-01-12] MEDS: Lactinex Tablet PO SCH (08:11)
[2019-01-12] MEDS: cefTRIAXone\\ROCEPHIN 2 GM in Sodium Chloride 0.9% 100 ML IVPB SCH (08:12)
[2019-01-12] MEDS: Famotidine 20 MG TAB PO SCH (08:17)
[2019-01-12 11:06] VITALS: BP 152/70; TEMP 97.8
[2019-01-12] MEDS: HumuLIN 70/30 (300 UNITS/3 ML VIAL) SC SCH (11:24)
--- NOTE | 2019-01-13 05:19 | DIS ---
DATE OF ADMISSION: 01/10/2019 DATE OF DISCHARGE: 01/12/2019 REASON FOR HOSPITALIZATION: Urinary tract infection and dehydration. SIGNIFICANT FINDINGS: The patient was found to have acute urinary tract infection, acute kidney injury with dehydration, and confusion from sepsis. PROCEDURES PERFORMED AND TREATMENTS RENDERED: The patient was admitted to medical unit with telemetry for close observation, she received IV fluid resuscitation, which normalized renal function back to her baseline, patient received IV antibiotics for urinary tract infection, urine culture confirmed E coli that was sensitive to all antibiotics, with maximum medical therapy the patient is symptoms resolved and she was recommended safe for discharge home with close followup in the outpatient setting. SPECIFIC INSTRUCTIONS FOR THE PATIENT/FAMILY: 1. Patient is recommended to take a full course of oral antibiotics for resolution of UTI. 2. Patient is recommended to maintain adequate oral hydration to avoid renal failure. I stressed the importance of adequate oral intake of fluids including water, Gatorade, or Pedialyte in order to avoid dehydration. 3. Patient is recommended to take all other home medications as directed without changes. 4. Patient is recommended to follow up with primary care physician in the next 5 to 7 days. 5. Patient is recommended to return to acute care hospital immediately if signs or symptoms return, worsen, or any other new symptoms occur. DISCHARGE MEDICATIONS: Please see full medication list for details. All home medications were continued without changes. Cefpodoxime 200 mg one tablet p.o. b.i.d. for a total of 6 days, #12 tablets. HOSPITAL COURSE: Ms. Blackburn is a very pleasant 68-year-old female who presented to [facility] on 01/10/2019, with urinary tract infection symptoms and dehydration. Patient was found to have acute urinary tract infection and acute kidney injury. Patient was admitted to medical unit with telemetry for close observation. Patient received IV fluids which caused normalization of renal function back to her baseline level. Patient received IV antibiotics with resolution of symptoms. Patient had urine culture, please see full report for details, she was confirmed to have E coli growing in the urine, which was sensitive to all oral antibiotics. Patient recommended safe for discharge as she is afebrile, normal WBC count, and ambulating without difficulty at her baseline level. Patient recommended to complete a full course of oral antibiotics for resolution of UTI. Patient is recommended to maintain adequate oral hydration including water, Gatorade, or Pedialyte to avoid dehydration. Patient is recommended to follow up with primary care physician in the next 5 to 7 days. Patient is recommended to return to acute care hospital immediately if signs or symptoms return, worsen, or any other new symptoms occur. Greater than 35 minutes spent coordinating care and discharge planning. Job ID: [id number] [id number]
--- NOTE | 2019-01-14 20:41 | PQF ---
HAILY FOFANA ERIK [id number] [facility] [id number] CLINICAL DOCUMENTATION CLARIFICATION FORM: POST DISCHARGE Addendum to original discharge summary date: ____ Late entry note date: __ DATE:01-14-2019 ATTN:Salvador Garcia Please exercise your independent, professional judgment in responding to the clarification form. Clinical indicators are provided on the bottom of this form for your review Diagnosis: Sepsis Present on Admission (POA): [ ] Yes [ XX ] No [ ] Unable to determine Coding guidelines require hospitals to identify whether a diagnosis was present on admission (POA) or not. To accurately assign the appropriate POA indicator, this information must be clearly documented within the medical record. CLINICAL INDICATORS : ED vital signs 01/10- BP= 149/90, 143/63, 158/71 Pulse 18, 16, 13, 17 Respi= 18 , 16, 13, 17 Temp=98.3, 98.0 HP 01/[address] Lamas worsening UTI symptoms, diarrhea, and dehydration over the psat 2 weeks HP 01/[address] Lamas patient feeling dehydrated HP 01/[address] Lamas patient found to have UTI and acute kidney injury HP 01/[address] Lamas Diarrhea likely viral DS 01/[address] Lamas The patient found to have UTI, Acute kidney injury with dehydration, and confusion from sepsis DS 01/[address] Lamas Urine culture confirmed E coli. RISK FACTORS: HP 01/10 Dr. Lamas- Frequent UTI HP 01/10 Dr. Lamas- HTN HP 01/10 Dr. Lamas- Hyperlipidemia HP 01/10 Dr. Lamas- DM TREATMENT: HP 01/10 Dr. Lamas- Antibiotics with Ceftriaxone HP 01/10 Dr. Lamas- Urine culture PN 01/11 Dr. Lamas- Continue pro biotics to replenish gut ping Imaging- CT abdomen (This form is maintained as a part of the permanent medical record) 2014 [employer], [employer]. All Rights Reserved Mona [email or web address] [not provided] MTDD
--- NOTE | 2019-01-14 20:45 | PQF ---
HAILY FOFANA ERIK [id number] [facility] [id number] CLINICAL DOCUMENTATION CLARIFICATION FORM: POST DISCHARGE Addendum to original discharge summary date: ____ Late entry note date: __ DATE:01-14-2019 ATTN:Salvador Garcia Please exercise your independent, professional judgment in responding to the clarification form. Clinical indicators are provided on the bottom of this form for your review Based on your clinical knowledge kindly identify what the patient actually has. Please check appropriate box(s): [ ] Encephalopathy: Type: [ XX ] Acute [ ] Subacute [ ] Chronic Etiology: [ ] Hypertensive [ XX ] Metabolic [ ] Toxic [ ] Other diagnosis please specify: [ ] Unable to determine In addition, please specify: Present on Admission (POA): [ XX ] Yes [ ] No [ ] Unable to determine For continuity of documentation, please document condition throughout progress notes and discharge summary. Thank You. CLINICAL INDICATORS: ED vital signs 01/10- BP= 149/90, 143/63, 158/71 Pulse 18, 16, 13, 17 Respi= 18 , 16, 13, 17 Temp=98.3, 98.0 HP 01/[address] Laams worsening UTI symptoms, diarrhea, and dehydration over the psat 2 weeks HP 01/[address] Lamas ROS: Neurological reports weakness HP 01/[address] Lamas patient feeling dehydrated DS 01/[address] Lamas The patient found to have UTI, Acute kidney injury with dehydration, and confusion from sepsis RISK FACTORS: DS 01/[address] Lamas- Confusion from sepsis HP 01/10 Dr. Lamas- Frequent UTI HP 01/10 Dr. Lamas- HTN TREATMENTS: HP 01/10 Dr. Lamas- Antibiotics with Ceftriaxone HP 01/10 Dr. Lamas- Urine culture PN 01/11 Dr. Lamas- Continue pro biotics to replenish gut ping Imaging- CT abdomen (This form is maintained as a part of the permanent medical record) 2014 [employer]. All Rights Reserved Mona [email or web address] [not provided] MTDD
== END 2019-01-12 14:27 | disposition home or self-care (01) | DRG 682 ==
LOC: ERS 09:13 → OBSVTOIN 13:14 → 2SW 13:14 → T4-A 01-11 20:35
PROVIDERS: ADMIT Internal Medicine; ATTEND Internal Medicine
DX: N17.9 Acute kidney failure, unspecified (principal); A41.9 Sepsis, unspecified organism; G93.41 Metabolic encephalopathy; N39.0 Urinary tract infection, site not specified; E86.0 Dehydration; E78.5 Hyperlipidemia, unspecified; K21.9 Gastro-esophageal reflux disease without esophagitis; M19.90 Unspecified osteoarthritis, unspecified site; G89.29 Other chronic pain; M54.5 Low back pain; E78.00 Pure hypercholesterolemia, unspecified; R19.7 Diarrhea, unspecified; B96.20 Unspecified Escherichia coli [E. coli] as the cause of diseases classified elsewhere; Z16.24 Resistance to multiple antibiotics; Z79.4 Long term (current) use of insulin; Z79.899 Other long term (current) drug therapy; F32.9 Major depressive disorder, single episode, unspecified; N18.9 Chronic kidney disease, unspecified; I12.9 Hypertensive chronic kidney disease with stage 1 through stage 4 chronic kidney disease, or unspecified chronic kidney disease; E11.22 Type 2 diabetes mellitus with diabetic chronic kidney disease
CPT/HCPCS: 36415; 36416; 51701; 74176; 80048; 80053; 81003; 81015; 83605; 83690; 85025; 87077; 87086; 87186; 96361; 96365; 96372; J0360; J0500; J0696; J1650; J2405; J3490

== ENCOUNTER 2019-01-19 10:37 | Outpatient (CLI) | payer MEDICARE, MEDICAID ==
--- NOTE | 2019-01-19 11:20 | RAD ---
XR Abdomen 2 View History: Emphysematous pyelitis Comparison: CT January 10, 2019 Findings: No dilated air-filled loops of large or small bowel. No abnormal calcifications projecting over the renal shadows. Evaluation for left renal collecting system gas is limited. Since of vascular calcifications of the splenic artery. Advanced facet arthrosis lumbar spine. Phleboliths in the pelvis. Impression: Unremarkable examination of the abdomen. Evaluation for renal collecting system gas is li mited with a radiograph.
== END 2019-01-19 10:38 | disposition home or self-care (01) ==
LOC: BICRAD 10:37
PROVIDERS: ATTEND Internal Medicine
DX: N12 Tubulo-interstitial nephritis, not specified as acute or chronic (principal)
CPT/HCPCS: 74019

== ENCOUNTER 2019-12-07 23:05 | Emergency (ER) | payer MEDICARE, MEDICAID ==
[2019-12-07] MEDS ORDERED: Ondansetron PF 4 MG/2 ML Vial ONE (23:56)
[2019-12-08 00:13] LABS: #Basophils 0.1 thou/uL (0.0-0.2); #Eosinphils 0.2 thou/uL (0.0-0.7); #Lymphocytes 1.6 thou/uL (1.20-3.40); #Monocytes 0.5 thou/uL (0.11-0.59); #Neutrophils 6.8 thou/uL (1.40-6.50); %Basophils 0.7 % (0.0-1.0); %Eosinophils 1.8 % (0.0-10.0); %Lymphocytes 17.1 % (21.0-51.0); %Monocytes 5.9 % (0.0-10.0); %Neutrophils 74.6 % (42.0-75.0); Hemoglobin 13.1 g/dL (12.0-16.0); Mean Corpuscular HGB CONC 33.8 g/dL (32.0-36.0); Mean Corpuscular Hemoglobin 30.4 pg (27.0-31.0); Mean Corpuscular Volume 89.8 fL (78.0-98.0); Mean Platelet Volume 10.8 fL (7.4-10.4); Platelet Count 180 thou/uL (130-400); RBC Distribution Width 11.8 % (11.5-14.5); Red Blood Cell (RBC) Count 4.31 mill/uL (4.20-5.40); White Blood Cell (WBC) Count 9.2 thou/uL (4.8-10.8)
[2019-12-08 00:35] LABS: ALT (SGPT) 23 U/L (8-55); AST (SGOT) 32 U/L (5-34); Albumin 3.1 g/dL (3.4-4.8); Alkaline Phosphatase 95 U/L (40-110); Anion Gap 14 mmol/L (10-20); BUN (Urea Nitrogen) 46 mg/dL (9.8-20.1); Bilirubin, Total 0.2 mg/dL (0.2-1.2); Calc. Creatinine Clearance 0 mL/min (70-130); Calcium 8.6 mg/dL (7.8-10.44); Carbon Dioxide 31 mmol/L (23-31); Chloride 91 mmol/L (98-107); Estimated GFR-MDRD 15; Globulin 3.2 g/dL (2.4-3.5); Glucose 148 mg/dL (80-115); Lipase 36 U/L (8-78); Potassium 4.1 mmol/L (3.5-5.1); Protein, Total 6.3 g/dL (6.0-8.3); Sodium 132 mmol/L (136-145)
[2019-12-08 00:44] LABS: Bacteria/HPF 3+ HPF (None Seen); Bilirubin Negative (Negative); Blood, Urine 1+ (Negative); Clarity Turbid (Clear); Glucose, Urine (Dipstick) 30 mg/dL (Negative); Ketone, Urine Negative (Negative); Leukocyte 500 Leu/uL (Negative); Nitrite Negative (Negative); Protein, Urine (Dipstick) 600 mg/dL (Neg-Trace); Specific Gravity, Urine 1.011 (1.002-1.036); Squamous Epithelial 0-3 HPF (0-3); Urobilinogen Normal mg/dL (Less than 2); WBC/HPF Greater than 50 HPF (0-3)
[2019-12-08] MEDS ORDERED: cefTRIAXone\\ROCEPHIN 2 GM VIAL ONE (00:54)
[2019-12-08] MEDS ORDERED: Sodium Chloride 0.9% 100 ML ONE (00:54)
--- NOTE | 2019-12-08 09:12 | CT ---
PRELIMINARY REPORT/[facility]/EMERGENCY AFTER HOURS PROCEDURE: EXAM: CT Abdomen and Pelvis Without Intravenous Contrast CLINICAL HISTORY: ...F70, NAUSEA STARTED SELENE, VOMITING TODAY. BLOOD WORK DONE RECENTLY, SENT TO [facility] T O "ELEVATED LEVELS". TECHNIQUE: Axial computed tomography images of the abdomen and pelvis without intravenous contrast. CONTRAST: None. COMPARISON: CT\\[place]\\SR - CT ABDOMEN PELVIS WO CON - 01/10/2019 11:02 AM CDT FINDINGS: LUNG BASES: Coronary artery calcifications are present. LIVER: Unremarkable. GALLBLADDER AND BILE DUCTS: Unremarkable. No calcified stone. No ductal dilation. PANCREAS: Unremarkable. SPLEEN: Unremarkable. ADRENAL GLANDS: Unremarkable. KIDNEYS, URETERS, AND BLADDER: Renal vascular calcifications are present. No nephrolithiasis or hydronephrosis. STOMACH AND BOWEL: Small hiatal hernia. APPENDIX: Normal appendix. PERITONEUM: No free fluid. No free air. LYMPH NODES: No lymphadenopathy. REPRODUCTIVE: Unremarkable as visualized. VASCULATURE: No aortic aneurysm. ABDOMINAL WALL AND SOFT TISSUES: Unremarkable. BONES: Multilevel degenerative changes of the spine most prominent at L4/L5 and L5/S1. IMPRESSION: No acute intra-abdominal or pelvic abnormality. No nephrolithiasis or hydronephrosis. ELECTRONICALLY SIGNED BY: Peg De León MD Dec 08, 2019 12:58:44 AM CDT This report is intended for review by the ordering physician only, in accordance of law. If you recei ve this report in error, please call [facility] at [phone]. FINAL REPORT EMERGENCY AFTER HOURS CT ABDOMEN AND PELVIS: I agree with the preliminary report provided by [facility]. No definite acute abnormality is evident. There is gas present within the bladder which may reflect r ecent instrumentation or possibly infection. Intraluminal gas was present within the bladder and left renal collecting system on the prior exam dated 01/10/2019. There is a small hiatal hernia. There is a stable small left adrenal adenoma. Unopacified liver, gall bladder, pancreas, right adrenal gland, and spleen appear within normal limits. There are moderate to severe vascular calcifications involving the abdominopelvic vasculature. There is fat-containing umbilical hernia. There are calcifications seen within the boateng of the uterus. The re is a small fibroid involving the posterior uterine fundus which is stable. There is a moderate mya unt of retained stool within the colon. There is a normal appendix within the right lower quadrant of the abdomen. There are scattered degenerative and osteoarthritic changes. POS: BH
== END 2019-12-08 01:35 | disposition home or self-care (01) ==
LOC: ERS 23:05
DX: N39.0 Urinary tract infection, site not specified (principal); R11.2 Nausea with vomiting, unspecified; E11.9 Type 2 diabetes mellitus without complications; I10 Essential (primary) hypertension; E78.5 Hyperlipidemia, unspecified; E78.00 Pure hypercholesterolemia, unspecified; F32.9 Major depressive disorder, single episode, unspecified; Z79.4 Long term (current) use of insulin; Z79.899 Other long term (current) drug therapy
CPT/HCPCS: 36415; 74176; 80053; 81003; 81015; 83690; 83880; 84484; 85025; 87077; 87086; 87186; 93005; 96365; 96375; J0696; J2405; J3490

== ENCOUNTER 2019-12-16 09:08 | Outpatient (CLI) | payer MEDICARE, MEDICAID ==
--- NOTE | 2019-12-16 09:28 | RAD ---
Chest 2 views HISTORY: Dyspnea. COMPARISON: 10/07/2019. FINDINGS: Cardiac silhouette and pulmonary vasculature are unremarkable. Mediastinum is midline. No confluent airspace consolidation, pneumothorax, or pleural fluid are evide nt. IMPRESSION : No abnormalities are demonstrated.
== END 2019-12-16 09:09 | disposition home or self-care (01) ==
LOC: BICRAD 09:08
PROVIDERS: ATTEND Internal Medicine Critical Care Medicine
DX: R06.00 Dyspnea, unspecified (principal)
CPT/HCPCS: 71046

== ENCOUNTER 2020-01-20 08:10 | Outpatient (CLI) | payer MEDICARE, MEDICAID, OTHER ==
[2020-01-20 14:36] LABS: #Basophils 0.1 thou/uL (0.0-0.2); #Eosinphils 0.2 thou/uL (0.0-0.7); #Lymphocytes 2.3 thou/uL (1.20-3.40); #Monocytes 0.6 thou/uL (0.11-0.59); #Neutrophils 5.9 thou/uL (1.40-6.50); %Basophils 0.7 % (0.0-1.0); %Eosinophils 2.5 % (0.0-10.0); %Lymphocytes 25.4 % (21.0-51.0); %Monocytes 6.4 % (0.0-10.0); Hemoglobin 12.9 g/dL (12.0-16.0); Mean Corpuscular HGB CONC 34.7 g/dL (32.0-36.0); Mean Corpuscular Hemoglobin 31.3 pg (27.0-31.0); Mean Platelet Volume 10.3 fL (7.4-10.4); Platelet Count 165 thou/uL (130-400); RBC Distribution Width 11.9 % (11.5-14.5); Red Blood Cell (RBC) Count 4.11 mill/uL (4.20-5.40); White Blood Cell (WBC) Count 9.1 thou/uL (4.8-10.8)
[2020-01-20 15:02] LABS: ALT (SGPT) 18 U/L (8-55); AST (SGOT) 23 U/L (5-34); Alkaline Phosphatase 111 U/L (40-110); Anion Gap 15 mmol/L (10-20); BUN (Urea Nitrogen) 41 mg/dL (9.8-20.1); Bilirubin, Total 0.3 mg/dL (0.2-1.2); Calc. Creatinine Clearance 0 mL/min (70-130); Calcium 8.1 mg/dL (7.8-10.44); Carbon Dioxide 24 mmol/L (23-31); Chloride 106 mmol/L (98-107); Estimated GFR-MDRD 19; Globulin 2.3 g/dL (2.4-3.5); Glucose 146 mg/dL (80-115); Potassium 4.6 mmol/L (3.5-5.1); Protein, Total 5.3 g/dL (6.0-8.3); Sodium 140 mmol/L (136-145)
[2020-01-21 12:22] LABS: SARS-CoV-2 MS2 Positive; SARS-CoV-2 N Gene Negative; SARS-CoV-2 S Gene Negative; SARS-CoV-2 by NAA Not Detected (NotDetected); SARS-CoV-2 orf1ab Negative
== END 2020-01-20 08:11 | disposition home or self-care (01) ==
LOC: LABBT 08:10
PROVIDERS: ATTEND Internal Medicine Cardiovascular Disease
DX: Z01.812 Encounter for preprocedural laboratory examination (principal); Z20.828 Contact with and (suspected) exposure to other viral communicable diseases
CPT/HCPCS: 80053; 85025; U0003; 87635

== ENCOUNTER 2020-01-20 11:15 | Inpatient (IN) | payer MEDICARE, MEDICAID, OTHER ==
[2020-01-23] MEDS ORDERED: HYDROcodone/Acetaminophen 5/325 mg Tablet PO PRN ×2 (10:26)
[2020-01-23 10:34] VITALS: BMI 37.5
--- NOTE | 2020-01-23 11:38 | RAD ---
PORTABLE CHEST: HISTORY: Pre-cardiac catheter evaluation. FINDINGS: The lung perrin are clear. No infiltrate. No evidence of vascular congestion or edema. Heart size is upper normal. IMPRESSION: No acute finding. POS: AGW
[2020-01-23 11:49] LABS: #Basophils 0.1 thou/uL (0.0-0.2); #Eosinphils 0.1 thou/uL (0.0-0.7); #Monocytes 0.7 thou/uL (0.11-0.59); #Neutrophils 6.5 thou/uL (1.40-6.50); %Basophils 0.7 % (0.0-1.0); %Eosinophils 1.4 % (0.0-10.0); %Lymphocytes 21.5 % (21.0-51.0); %Monocytes 7.7 % (0.0-10.0); %Neutrophils 68.6 % (42.0-75.0); Hemoglobin 11.9 g/dL (12.0-16.0); Mean Corpuscular HGB CONC 33.4 g/dL (32.0-36.0); Mean Corpuscular Hemoglobin 30.2 pg (27.0-31.0); Mean Corpuscular Volume 90.5 fL (78.0-98.0); Mean Platelet Volume 9.9 fL (7.4-10.4); Platelet Count 156 thou/uL (130-400); RBC Distribution Width 11.9 % (11.5-14.5); Red Blood Cell (RBC) Count 3.95 mill/uL (4.20-5.40); White Blood Cell (WBC) Count 9.5 thou/uL (4.8-10.8)
[2020-01-23 12:17] LABS: ALT (SGPT) 16 U/L (8-55); AST (SGOT) 20 U/L (5-34); Albumin 2.8 g/dL (3.4-4.8); Alkaline Phosphatase 100 U/L (40-110); Anion Gap 15 mmol/L (10-20); BUN (Urea Nitrogen) 39 mg/dL (9.8-20.1); Bilirubin, Total Less than 0.2 mg/dL (0.2-1.2); Calc. Creatinine Clearance 24 mL/min (70-130); Carbon Dioxide 26 mmol/L (23-31); Chloride 99 mmol/L (98-107); Estimated GFR-MDRD 16; Globulin 2.7 g/dL (2.4-3.5); Glucose 292 mg/dL (80-115); Potassium 4.2 mmol/L (3.5-5.1); Protein, Total 5.5 g/dL (6.0-8.3); Sodium 136 mmol/L (136-145)
[2020-01-23] MEDS: Sodium Chloride 0.9% 1,000 ML IV SCH (13:14)
[2020-01-23] MEDS ORDERED: Dextrose 5% in Water 1,000 ML IV PRN (17:36)
[2020-01-23] MEDS ORDERED: Dextrose 50% Abboject 50 ML SYRINGE IVP PRN (17:36)
[2020-01-23] MEDS: Insulin Regular 300 UNITS/3 ML VIAL SC PRN (18:14)
[2020-01-24] MEDS: Sodium Chloride 0.9% 1,000 ML IV SCH ×4 (01:14→22:49)
[2020-01-24] MEDS ORDERED: Lidocaine 1% (PF) 30 ML VIAL ONE ×2 (06:39→08:52)
[2020-01-24] MEDS ORDERED: Verapamil 5 MG/2 ML VIAL ONE (07:12)
[2020-01-24] MEDS ORDERED: Heparin 10,000 UNITS/ 10 ML VIAL ONE (07:12)
[2020-01-24] MEDS ORDERED: Nitroglycerin 100MG/250ML BOT 250 ML ONE (07:12)
[2020-01-24] MEDS ORDERED: Midazolam HCl 2 mg/2 ml Vial ONE (07:18)
[2020-01-24] MEDS ORDERED: Fentanyl 100 MCG/2 ML VIAL ONE (07:18)
[2020-01-24] MEDS ORDERED: Acetaminophen/Codeine 30-300mg Tablet PO PRN (10:09)
[2020-01-24] MEDS ORDERED: Sodium Chloride 0.9% 200 ML IV PRN (10:09)
[2020-01-24] MEDS ORDERED: Nitroglycerin 0.4 MG TAB (25 Tab Bottle) SL PRN (10:09)
[2020-01-24] MEDS: Acetaminophen/Codeine 30-300mg Tablet PO PRN (10:20)
[2020-01-24] MEDS ORDERED: Iopamidol 370 76% 100 ML VIAL ONE (12:12)
[2020-01-24] MEDS ORDERED: NIFEdipine XL 30 MG TAB PO SCH (13:00)
[2020-01-24] MEDS ORDERED: cloNIDine 0.1 MG TAB PO SCH (13:45)
--- NOTE | 2020-01-24 20:15 | CON ---
DATE OF CONSULTATION: 01/24/2020 CONSULTING PHYSICIAN: Elsie Martinez MD REASON FOR CONSULTATION: Acute kidney injury, chronic kidney disease, and recent contrast exposure with cardiac cath. REASON FOR ADMISSION: For heart catheterization. HISTORY OF PRESENT ILLNESS: This is a 69-year-old female with history of diabetes and hypertension, who came to the hospital with heart catheterization, and Nephrology has consulted the patient, where her last creatinine was 2.4 on 01/20/2020, before that it was 3.09, today, it is 2.9. She is on hydration now. She denies any chest pain, nausea, or vomiting. No shortness of breath. No fever or chills. PAST MEDICAL HISTORY: Positive for hypertension, hyperlipidemia, coronary artery disease, CVA, congestive heart failure, COPD, chronic kidney disease, dementia, GERD, and schizophrenia. PAST SURGICAL HISTORY: None. HOME MEDICATIONS: Reviewed. ALLERGIES: ATORVASTATIN AND IBUPROFEN. SOCIAL HISTORY: No smoking, alcohol, or illicit drug abuse. FAMILY HISTORY: No history of kidney disease. REVIEW OF SYSTEMS: CONSTITUTIONAL: Negative for weight loss or gain, ability to conduct usual activities. SKIN: Negative for rash, itching. EYES: Negative for double vision, pain. ENT/MOUTH: Negative for nose bleeding, neck stiffness, pain, tenderness. CARDIOVASCULAR: Negative for palpitations, dyspnea on exertion, orthopnea. RESPIRATORY: Negative for shortness of breath, wheezing, cough, hemoptysis, fever or night sweats. GASTROINTESTINAL: Negative for poor appetite, abdominal pain, heartburn, nausea, vomiting, constipation, or diarrhea. GENITOURINARY: Negative for urgency, frequency, dysuria, nocturia. MUSCULOSKELETAL: Negative for pain, swelling. NEUROLOGIC/PSYCHIATRIC: Negative for anxiety, depression. ALLERGY/IMMUNOLOGIC: Negative for skin rash, bleeding tendency. PHYSICAL EXAMINATION: GENERAL: This is a well-built female, in no apparent distress. VITAL SIGNS: Temperature 97.7, pulse 60, respiratory rate 16, and blood pressure 142/66. HEENT: Atraumatic, normocephalic. Oral mucosa moist. NECK: Supple. CV: S1 and S2. Rate and rhythm regular. RESPIRATORY: Clear. GASTROINTESTINAL: Abdomen is soft. MUSCULOSKELETAL: No tenderness. No edema. DERMATOLOGIC: No skin rash. NEUROLOGIC: Alert and awake. PSYCHIATRIC: Mood and affect normal. LABORATORY DATA: Hemoglobin is 11.9. Potassium is 4.2, BUN is 39, and creatinine is 2.9. ASSESSMENT AND PLAN: 1. Acute kidney injury on chronic kidney disease, stage 4 with creatinine close to baseline, but she had contrast exposure and currently on hydration. Nephrology appreciated consult. Avoid nephrotoxins and continue hydration if tolerated. 2. Anemia, mild. 3. History of hypertension. 4. History of edema. 5. Moderate hypoalbuminemia. Due to recent contrast exposure, we will continue IV fluids as tolerated. Avoid nephrotoxins and hold lisinopril, and we will continue to monitor renal function. Thank you for the consult. We will follow. Job ID: [id number]
[2020-01-24] MEDS: NIFEdipine XL 30 MG TAB PO SCH (22:37)
[2020-01-24] MEDS: Insulin Regular 300 UNITS/3 ML VIAL SC PRN (22:38)
[2020-01-25 04:44] LABS: Anion Gap 14 mmol/L (10-20); BUN (Urea Nitrogen) 38 mg/dL (9.8-20.1); Calc. Creatinine Clearance 28 mL/min (70-130); Calcium 8.2 mg/dL (7.8-10.44); Carbon Dioxide 23 mmol/L (23-31); Chloride 104 mmol/L (98-107); Estimated GFR-MDRD 19; Glucose 189 mg/dL (80-115); Potassium 4.3 mmol/L (3.5-5.1); Sodium 137 mmol/L (136-145)
[2020-01-25] MEDS: Insulin Regular 300 UNITS/3 ML VIAL SC PRN ×2 (05:48→17:16)
[2020-01-25] MEDS: NIFEdipine XL 30 MG TAB PO SCH (09:18)
[2020-01-25] MEDS: Ondansetron PF 4 MG/2 ML Vial IVP PRN ×3 (09:18→15:37)
--- NOTE | 2020-01-25 13:42 | PRG ---
DATE OF SERVICE: 01/25/2020 SUBJECTIVE: Patient was seen and examined at bedside and overnight events noted. Patient denies any shortness of breath or chest pain or palpitation. No history of nausea or vomiting or diarrhea or fever or chills or cramps. OBJECTIVE: General: This is a well-built female, in no apparent distress. Vital Signs: Temperature 97.8. Heart Rate 65. Respiratory rate 16. Blood pressure 115/51. HEENT: Atraumatic, normocephalic. Oral mucosa is moist. Neck: Supple. Cardiovascular: S1, S2 heard. Rate and rhythm regular. Respiratory: Clear to auscultation. Gastrointestinal: Abdomen is soft. Musculoskeletal: No tenderness. No edema. Dermatologic: No skin rash. Neurologic: Alert and awake and oriented x3. No focal neurologic deficits. Moving all the extremities. Psychiatric: Mood and affect normal. LABORATORY DATA: Creatinine is 2.5. ASSESSMENT AND PLAN: 1. Acute kidney injury on chronic kidney stage 4, stable. Creatinine is better 2. Edema. 3. Moderate hypoalbuminemia. 4. H/o hypertension Renal function is better. Avoid nephrotoxins. We will follow. Job ID: [id number] [facility]
[2020-01-25] MEDS: Acetaminophen/Codeine 30-300mg Tablet PO PRN (16:00)
[2020-01-25 16:41] VITALS: BP 134/60; TEMP 97.7
--- NOTE | 2020-01-26 02:14 | DIS ---
DATE OF ADMISSION: 01/23/2020 DATE OF DISCHARGE: 01/25/2020 PRIMARY CARE PROVIDER: Dr. Bill Infante. MELT HOUSE CENTRIFUGAL OPERATOR: Dr. Gomez. PRIMARY DIRECTOR ENERGY: Dr. Elsie Martinez. REASON FOR HOSPITALIZATION: Cardiac catheterization. DISCHARGE DIAGNOSES: Normal coronary arteries, chronic kidney disease, diabetes, hypertension, hyperlipidemia, history of CVA, COPD, GERD, multiple histories of UTI, and chronic nausea. DISCHARGE MEDICATIONS: 1. Omeprazole 40 mg once a day. 2. Humalog 75/25 at 40 units at p.m. and 70 units in the a.m. 3. Simvastatin 5 mg at night. 4. Lasix 40 mg once a day. 5. eyedrops 1 drop in the left eye 3 times a day. 6. Gatifloxacin 1 drop to the right eye 3 times a day. 7. Discontinue medications aspirin 325 mg once a day and metoprolol succinate 25 mg once a day. 8. New medications, nifedipine 30 mg twice a day. Pending at this time of discharge is physical therapy examination and evaluation. DIET: ADA and renal diet with low sodium. Fluid restriction 1500 mL per day. SPECIFIC INSTRUCTION FOR THE PATIENT AND FAMILY: 1. The patient is recommended to follow up with primary care doctor as soon as possible for chronic nausea, for possible GI referral Dr. Gomez and Dr. Martinez within 2 to 4 weeks. 2. The patient is recommended to manage her diabetes very well. Strict fluid and salt restriction at home. 3. The patient is recommended to wear compression stocking. Regular exercise such as stationary bicycle pedalling at home every day. 4. The patient is recommended to return to acute care hospital immediately if signs or symptoms return, worse, or any other new symptoms. HOSPITAL COURSE: Ms. Blackburn is a very pleasant 69-year-old female who underwent cardiac catheterization by Dr. Martinez on January 24, 2020, for abnormal stress test and complained of worsening of fatigue and shortness of breath. The patient's cardiac catheterization on January 24, 2020, shows the patient has normal coronary arteries. However, the patient will stay 1 more night in the hospital for hydration due to chronic kidney disease and using iodine during the cardiac catheterization procedure. The patient's lab result today shows sodium 137, potassium 4.3, BUN 38, creatinine 2.5 which was 2.95 yesterday, glucose 189, AST 20, ALT 16. The is recommended to follow up with primary care doctor, Dr. Gomez who is the patient's single fold machine operator, and Dr. Martinez' office as described above. At this moment, the patient denied any shortness of breath, chest pain, heaviness, tightness, dizziness, lightheadedness, or any other cardiac complaints except the complaint of chronic nausea, especially after the patient has any intake and the patient's cardiac catheterization in a patient with right wrist site is open to air without any erythema, swelling, discharge, or hematoma. Greater than 40 minutes spent in coordinating care and discharge planning. Discussed with the patient and family member about future treatment plan. Job ID: [id number]
== END 2020-01-25 17:45 | disposition home health service (06) | DRG 287 ==
LOC: 2SW 01-23 09:44 → 2NO 01-23 20:32
PROVIDERS: ADMIT Internal Medicine Cardiovascular Disease; ATTEND Internal Medicine Cardiovascular Disease
PROC: 3E0234Z Introduction of Serum, Toxoid and Vaccine into Muscle, Percutaneous Approach (ICD-10-PCS; 2020-01-23)
PROC: 4A023N7 Measurement of Cardiac Sampling and Pressure, Left Heart, Percutaneous Approach (ICD-10-PCS; principal; 2020-01-24)
PROC: B2111ZZ Fluoroscopy of Multiple Coronary Arteries using Low Osmolar Contrast (ICD-10-PCS; 2020-01-24)
PROC: B2151ZZ Fluoroscopy of Left Heart using Low Osmolar Contrast (ICD-10-PCS; 2020-01-24)
DX: R94.39 Abnormal result of other cardiovascular function study (principal); I13.0 Hypertensive heart and chronic kidney disease with heart failure and stage 1 through stage 4 chronic kidney disease, or unspecified chronic kidney disease; N17.9 Acute kidney failure, unspecified; N18.4 Chronic kidney disease, stage 4 (severe); K21.9 Gastro-esophageal reflux disease without esophagitis; I12.9 Hypertensive chronic kidney disease with stage 1 through stage 4 chronic kidney disease, or unspecified chronic kidney disease; E11.22 Type 2 diabetes mellitus with diabetic chronic kidney disease; J44.9 Chronic obstructive pulmonary disease, unspecified; R11.0 Nausea; I08.1 Rheumatic disorders of both mitral and tricuspid valves; E66.9 Obesity, unspecified; I50.9 Heart failure, unspecified; F20.9 Schizophrenia, unspecified; D63.1 Anemia in chronic kidney disease; E78.2 Mixed hyperlipidemia; E88.09 Other disorders of plasma-protein metabolism, not elsewhere classified; Z86.73 Personal history of transient ischemic attack (TIA), and cerebral infarction without residual deficits; Z87.440 Personal history of urinary (tract) infections; Z79.4 Long term (current) use of insulin; Z79.899 Other long term (current) drug therapy; Z68.37 Body mass index [BMI] 37.0-37.9, adult; Z88.8 Allergy status to other drugs, medicaments and biological substances; Z23 Encounter for immunization
CPT/HCPCS: 36415; 36416; 71045; 80048; 80053; 85025; 87635; 90471; 90732; 93458; 94760; 99152; 99153; G0009; J1644; J1815; J2001; J2250; J2405; J3010; Q9967; U0003

== ENCOUNTER 2020-04-27 13:41 | Inpatient (IN) | payer MEDICARE, MEDICAID ==
[2020-04-27 14:26] LABS: Hemoglobin 11.9 g/dL (12.0-16.0); Mean Corpuscular HGB CONC 32.4 g/dL (32.0-36.0); Mean Corpuscular Hemoglobin 29.6 pg (27.0-31.0); Mean Corpuscular Volume 91.4 fL (78.0-98.0); Mean Platelet Volume 8.9 fL (7.4-10.4); Platelet Count 234 thou/uL (130-400); RBC Distribution Width 12.6 % (11.5-14.5); Red Blood Cell (RBC) Count 4.03 mill/uL (4.20-5.40)
--- NOTE | 2020-04-27 14:30 | RAD ---
PORTABLE CHEST: Date: 04/27/2020 HISTORY: Cough. Shortness of breath. COMPARISON: 10/07/2017 study. FINDINGS: Heart size is enlarged. There are infiltrative lung changes, which are right lung predominant, with r ight upper and lower lung changes. There appears to be some minimal changes in the left lung. IMPRESSION: 1. Infiltrative lung changes. The possibility of COVID pneumonia should be strongly considered. 2. Mild cardiomegaly. POS: CROW
[2020-04-27 14:42] LABS: Band 14 % (5-11); Lymphocytes 9 % (21-51); MDiff Complete? YES; Monocytes 8 % (0-10); Neutrophil 64 % (42-75); Platelet Morphology Comment Appears Adequate; Polychromasia SLIGHT = 2-3 cells (100X) (0-2/hpf); Reactive Lymphocytes 5 % (0-10)
[2020-04-27] MEDS ORDERED: cefTRIAXone\\ROCEPHIN 2 GM VIAL ONE (14:42)
[2020-04-27] MEDS ORDERED: Dexamethasone 10 MG/ML VIAL ONE (14:42)
[2020-04-27] MEDS ORDERED: Azithromycin 500 MG VIAL ONE (14:43)
[2020-04-27 14:47] LABS: ALT (SGPT) 32 U/L (8-55); AST (SGOT) 44 U/L (5-34); Albumin 3.2 g/dL (3.4-4.8); Alkaline Phosphatase 135 U/L (40-110); Anion Gap 16 mmol/L (10-20); BUN (Urea Nitrogen) 35 mg/dL (9.8-20.1); Bilirubin, Total 0.2 mg/dL (0.2-1.2); Calc. Creatinine Clearance 0 mL/min (70-130); Calcium 8.3 mg/dL (7.8-10.44); Carbon Dioxide 23 mmol/L (23-31); Chloride 106 mmol/L (98-107); Globulin 2.8 g/dL (2.4-3.5); Potassium 4.6 mmol/L (3.5-5.1); Sodium 140 mmol/L (136-145)
[2020-04-27 14:52] LABS: Glucose 33 mg/dL (80-115)
[2020-04-27] MEDS ORDERED: Albuterol 200 PUFF (6.7GM INHALER) ONE (14:53)
[2020-04-27 15:40] LABS: CKMB 15.7 ng/mL (0-6.6)
[2020-04-27 15:42] LABS: Prothrombin Time 13.8 sec (12.0-14.7)
[2020-04-27 15:43] LABS: PTT 38.4 sec (22.9-36.1)
[2020-04-27] MEDS ORDERED: Enoxaparin Sodium 80 MG/0.8 ML SYRINGE ONE (15:51)
--- NOTE | 2020-04-27 16:25 | PDOC.HHP ---
Hospitalist HPI - History of Present Illness Shortness of breath History of Present Illness: 69-year-old female who was brought to emergency room for increasing shortness of breath, as per report patient was not eating or drinking at home, patient took Tylenol around 1 PM today, patient symptoms started around Thanksgiving, when she came to emergency room patient was hypotensive and slightly tachypneic, she was kept on oxygen NC was saturating normal, her blood sugar was also low on admission, subsequently her troponin was also significantly elevated, patient does not have any complaint of chest pain, I spoke with the patient by using language line, patient's daughter is also present bedside, patient has predominantly excessive amount of cough and chest discomfort because of cough but no anginal pain, she has shortness of breath, even after walking she gets out of breath, she does not have any classic exposure with COVID-19, no loss of taste or smell sensation, she denies any melena or hematochezia, she does not any nausea vomiting diarrhea, ED Course: VITAL SIGNS Pau Apr 27, 2020 13:47 KATJA Ny, Jonna BP: 187/92, Pulse: 79, Resp: 22, Temp: 98.2 (Oral), O2 sat: 94 on (4L Oxygen), Time: 04/27/2020 13:47. VITAL SIGNS Pau Apr 27, 2020 15:18 KATJA Crenshaw Jennifer BP: 179/81, Pulse: 73, Resp: 15, Temp: 97.5 (Oral), Pain: 0, O2 sat: 95 on (4L Oxygen), Time: 04/27/2020 15:18. VITAL SIGNS Pau Apr 27, 2020 16:12 KATJA Crenshaw Jennifer BP: 150/65, Pulse: 74, Resp: 17, Temp: 97.3 (Oral), Pain: 0, O2 sat: 98 on (4L Oxygen), Time: 04/27/2020 16:12 In the emergency room patient is given Proventil HFA at 4-5, Lovenox 1 mg/kg, IV fluid 500 mL bolus, Rocephin 2 g and azithromycin 500 mg, dexamethasone 8 mg Hospitalist ROS - Review of Systems Constitutional: reports: weakness, malaise. denies: fever, chills, sweats, other Eyes: reports: pain. denies: vision change, conjunctivae inflammation, eyelid inflammation, redness, other Respiratory: reports: cough, shortness of breath, SOB with excertion. denies: dry, hemoptysis, pleuritic pain, sputum, wheezing, other Cardiovascular: reports: light headedness. denies: chest pain, palpitations, orthopnea, paroxysmal noc. dyspnea, edema, other Gastrointestinal: denies: nausea, vomiting, abdominal pain, diarrhea, constipation, melena, hematochezia, other Genitourinary: denies: dysuria, frequency, incontinence, hematuria, retention, other Musculoskeletal: denies: neck pain, shoulder pain, arm pain, back pain, hand pain, leg pain, foot pain, other Skin: denies: rash, lesions, kiran, bruising, other Hospitalist History - Past Medical History Musculoskeletal: reports: Chronic low back pain, Osteoarthritis Renal/: reports: Chronic renal insuff, UTI (Recurrent) Endocrine: reports: Diabetes Other Medical History: Hypertension Dyslipidemia Diabetes type 2 Anxiety and depression Asthma Past psychiatric history anxiety and depression - Past Surgical History Other Surgical History: Left foot surgery - Family History Other Family History: Mother in her 80s from old age, father in her 80s as well, no strong family history of premature coronary artery disease stroke or cancer but diabetes runs among family member - Social History Alcohol: reports: None Drugs: reports: none Other Social History: No history of tobacco alcohol or illicit drug abuse - Exam General Appearance: NAD, awake alert, ill appearing Eye: PERRL, anicteric sclera ENT: normocephalic atraumatic, no oropharyngeal lesions Neck: supple, symmetric, no JVD Heart: RRR, no murmur, no gallops, no rubs Respiratory - other findings: Bilateral coarse breath sound Gastrointestinal: soft, non-tender, non-distended, normal bowel sounds Gastrointestinal - other findings: Obesity noted Extremities: no clubbing, no edema Skin: normal turgor, no lesions Neurological: no focal deficits Musculoskeletal: normal tone, normal strength Psychiatric: normal affect, normal behavior Hospitalist Results - Labs Result Diagrams: 04/27/20 14:15 04/27/20 14:15 Lab results: WBC 22.0 thou/uL (4.8-10.8) H 04/27/20 14:15 Hgb 11.9 g/dL (12.0-16.0) L 04/27/20 14:15 Hct 36.8 % (36.0-47.0) 04/27/20 14:15 MCV 91.4 fL (78.0-98.0) 04/27/20 14:15 Plt Count 234 thou/uL (130-400) 04/27/20 14:15 Band Neuts % (Manual) 14 % (5-11) H 04/27/20 14:15 Sodium 140 mmol/L (136-145) 04/27/20 14:15 Potassium 4.6 mmol/L (3.5-5.1) 04/27/20 14:15 Chloride 106 mmol/L (98-107) 04/27/20 14:15 Carbon Dioxide 23 mmol/L (23-31) 04/27/20 14:15 BUN 35 mg/dL (9.8-20.1) H 04/27/20 14:15 Creatinine 2.72 mg/dL (0.6-1.1) H 04/27/20 14:15 Glucose 33 mg/dL (80-115) L* 04/27/20 14:15 Lactic Acid 0.6 mmol/L (0.5-2.2) 04/27/20 14:44 Calcium 8.3 mg/dL (7.8-10.44) 04/27/20 14:15 Total Bilirubin 0.2 mg/dL (0.2-1.2) 04/27/20 14:15 AST 44 U/L (5-34) H 04/27/20 14:15 ALT 32 U/L (8-55) 04/27/20 14:15 Alkaline Phosphatase 135 U/L (40-110) H 04/27/20 14:15 CK-MB (CK-2) 15.7 ng/mL (0-6.6) H* 04/27/20 14:15 Troponin I 0.624 ng/mL (< 0.028) H* 04/27/20 14:15 Serum Total Protein 6.0 g/dL (6.0-8.3) 04/27/20 14:15 Albumin 3.2 g/dL (3.4-4.8) L 04/27/20 14:15 - EKG Interpretation EK lead EKG shows, first degree AV Block, Rate (beats per minute): 86, with no ectopics, Conduction normal, ST segments normal, [place] normal, Nonspecific T wave changes - Radiology Interpretation Chest x-ray Status: image reviewed by me Additional Comment: Chest x-ray consistent with bilateral infiltrative changes in the lung more on the right side, predominantly more on right upper and lower lobe, mild cardiomegaly Hospitalist H&P A/P - Problem (1) Pneumonia due to 2019 novel coronavirus Code(s): U07.1 - COVID-19; J12.89 - OTHER VIRAL PNEUMONIA Status: Acute (2) Acute respiratory failure due to COVID-19 Code(s): U07.1 - COVID-19; J96.00 - ACUTE RESPIRATORY FAILURE, UNSP W HYPOXIA OR HYPERCAPNIA Status: Acute (3) Sepsis due to COVID-19 Code(s): U07.1 - COVID-19; A41.89 - OTHER SPECIFIED SEPSIS Status: Acute (4) Type 1 non-ST elevation myocardial infarction (NSTEMI) Code(s): I21.4 - NON-ST ELEVATION (NSTEMI) MYOCARDIAL INFARCTION Status: Acute (5) Hypoglycemia associated with type 2 diabetes mellitus Code(s): E11.649 - TYPE 2 DIABETES MELLITUS WITH HYPOGLYCEMIA WITHOUT COMA Status: Acute (6) Diabetes type 2, controlled Code(s): E11.9 - TYPE 2 DIABETES MELLITUS WITHOUT COMPLICATIONS Status: Chronic Qualifiers: Diabetes mellitus skilled nursing insulin use: with intermediate frame tender use Diabetes mellitus complication status: with hypoglycemia Qualified Code(s): E11.649 - Type 2 diabetes mellitus with hypoglycemia without coma; Z79.4 - termite treater helper (current) use of insulin (7) CKD (chronic kidney disease), stage IV Code(s): N18.4 - CHRONIC KIDNEY DISEASE, STAGE 4 (SEVERE) Status: Chronic (8) HLD (hyperlipidemia) Code(s): E78.5 - HYPERLIPIDEMIA, UNSPECIFIED Status: Chronic Qualifiers: Hyperlipidemia type: pure hypercholesterolemia Qualified Code(s): E78.00 - Pure hypercholesterolemia, unspecified; E78.0 - Pure hypercholesterolemia (9) HTN (hypertension) Code(s): I10 - ESSENTIAL (PRIMARY) HYPERTENSION Status: Chronic Qualifiers: Hypertension type: essential hypertension Qualified Code(s): I10 - Essential (primary) hypertension - Plan Plan: Regarding sepsis which is most likely related with COVID-19 infection, associated bacterial superinfection is also possible given her diabetes history and old age, patient will be given broad-spectrum antibiotic coverage with Rocephin and azithromycin, will also continue vitamin supplementation, patient is not a candidate for remdesivir therapy because of renal failure and prolonged illness,will closely monitor for any deterioration, will treat with dexamethasone Regarding respiratory failure with hypoxia, continue oxygen to keep saturation above 92%, if condition deteriorates then will use high flow oxygen, will closely monitor in hospital, will add dexamethasone Regarding COVID-19 infection we will continue vitamin supplementation, unfortunately patient is not a candidate for remdesivir therapy because of advanced renal insufficiency, continue isolation precaution, we will treat with dexamethasone Regarding NSTEMI type II, patient is given Lovenox 1 mg/kg in emergency room, will continue Lovenox 40 mg subcu twice daily, will try to obtain echocardiography to assess EF and other structural abnormality, most likely this is related with demand ischemia, renal function is also contributory elevated troponin, will do serial troponins, continue aspirin, statin therapy and based on hemodynamics also continue statin and goal-directed therapy, Regarding hyperglycemia associated diabetes type 2 because of poor p.o. intake, and renal insufficiency, will hold on insulin therapy will only use as needed basis only Regarding chronic kidney disease patient's renal function are stable, will monitor renal function, patient is not a candidate for any remdesivir therapy because of renal insufficiency Hypertension, diabetes type 2, and other chronic medical issue will be addressed based on her home medication, selected home medication will be initiated DVT prophylaxis patient is already on Lovenox therapy GI prophylaxis Protonix 40 mg p.o. daily CODE STATUS patient is full code Disposition plan based on clinical course. Condition guarded, prognosis guarded, based on her age and multiple comorbidities chances of deterioration is possible
[2020-04-27 17:59] LABS: SARS-CoV-2 NAA Rapid Test Not Detected (NotDetected)
[2020-04-27 18:28] LABS: Critical Call Chem Troponin I RESULT DECREASING; Troponin I 0.602 ng/mL (< 0.028)
[2020-04-27] MEDS ORDERED: Cepastat Lozenges 1 LOZ PO PRN (20:01)
[2020-04-27] MEDS ORDERED: Albuterol Sulfate 2.5 mg/3 ml Neb NEB PRN (20:01)
[2020-04-27] MEDS ORDERED: Ondansetron PF 4 MG/2 ML Vial IVP PRN (20:01)
[2020-04-27] MEDS ORDERED: Dextrose 50% Abboject 50 ML SYRINGE SLOW IVP PRN (20:01)
[2020-04-27] MEDS ORDERED: Ondansetron ODT 4 MG TAB PO PRN (20:01)
[2020-04-27] MEDS ORDERED: Bisacodyl 10 MG SUPP PR PRN (20:01)
[2020-04-27] MEDS ORDERED: Loperamide HCl 2 MG CAP PO PRN (20:01)
[2020-04-27] MEDS ORDERED: Benzonatate 100 MG CAP PO PRN (20:01)
[2020-04-27] MEDS ORDERED: Zolpidem Tartrate 5 MG TAB PO PRN (20:01)
[2020-04-27] MEDS ORDERED: Sodium Chloride 0.65% Nasal 44 ML BOT EA NARE PRN (20:01)
[2020-04-27] MEDS ORDERED: Senokot S 8.6-50 MG TAB PO PRN (20:01)
[2020-04-27] MEDS ORDERED: HYDROcodone/Acetaminophen 5/325 mg Tablet PO PRN (20:01)
[2020-04-27] MEDS ORDERED: Calcium Carbonate 500 MG ChewTAB PO PRN (20:01)
[2020-04-27] MEDS ORDERED: hydrALAZINE 20 MG/ML VIAL SLOW IVP PRN (20:01)
[2020-04-27] MEDS ORDERED: Dextrose 5% in Water 1,000 ML IV PRN (20:01)
[2020-04-27] MEDS ORDERED: Loratadine 10 MG TAB PO PRN (20:01)
[2020-04-27] MEDS ORDERED: PROVENTIL INHALER 6.7 G (200 INHALATIONS) INH PRN (20:15)
[2020-04-27 21:20] LABS: Critical Call Chem Troponin I RESULT DECREASING; Troponin I 0.576 ng/mL (< 0.028)
[2020-04-27] MEDS: NIFEdipine XL 30 MG TAB PO SCH (22:14)
[2020-04-27] MEDS: Simvastatin 5 MG TAB PO SCH (22:14)
[2020-04-27] MEDS: prednisoLONE 1% Ophth Susp 5 ml Bottle L EYE SCH (22:59)
[2020-04-28 05:15] LABS: #Eosinphils 0.1 thou/uL (0.0-0.7); #Lymphocytes 0.9 thou/uL (1.20-3.40); #Monocytes 0.4 thou/uL (0.11-0.59); #Neutrophils 19.1 thou/uL (1.40-6.50); %Eosinophils 0.3 % (0.0-10.0); %Lymphocytes 4.2 % (21.0-51.0); %Monocytes 1.8 % (0.0-10.0); %Neutrophils 93.7 % (42.0-75.0); Hemoglobin 11.6 g/dL (12.0-16.0); Mean Corpuscular Hemoglobin 29.8 pg (27.0-31.0); Mean Corpuscular Volume 92.9 fL (78.0-98.0); Mean Platelet Volume 8.7 fL (7.4-10.4); Platelet Count 217 thou/uL (130-400); RBC Distribution Width 12.5 % (11.5-14.5); Red Blood Cell (RBC) Count 3.89 mill/uL (4.20-5.40); White Blood Cell (WBC) Count 20.4 thou/uL (4.8-10.8)
[2020-04-28 05:39] LABS: ALT (SGPT) 27 U/L (8-55); AST (SGOT) 33 U/L (5-34); Alkaline Phosphatase 129 U/L (40-110); Anion Gap 15 mmol/L (10-20); BUN (Urea Nitrogen) 37 mg/dL (9.8-20.1); Bilirubin, Total 0.2 mg/dL (0.2-1.2); CRP (Inflammatory) 8.92 mg/dL (= or < 0.5); Calc. Creatinine Clearance 27 mL/min (70-130); Calcium 8.5 mg/dL (7.8-10.44); Carbon Dioxide 24 mmol/L (23-31); Chloride 104 mmol/L (98-107); Globulin 3.3 g/dL (2.4-3.5); Glucose 126 mg/dL (80-115); Phosphorus 4.5 mg/dL (2.3-4.7); Potassium 5.3 mmol/L (3.5-5.1); Protein, Total 6.3 g/dL (6.0-8.3); Sodium 138 mmol/L (136-145)
[2020-04-28] MEDS: Aspirin 325 MG TAB PO SCH (08:18)
[2020-04-28] MEDS: NIFEdipine XL 30 MG TAB PO SCH ×2 (08:18→20:16)
[2020-04-28] MEDS: Ascorbic Acid 500 mg Chewable Tablet PO SCH (08:19)
[2020-04-28] MEDS: Folic Acid/Vit B Comp W-C PO SCH (08:19)
[2020-04-28] MEDS: prednisoLONE 1% Ophth Susp 5 ml Bottle L EYE SCH ×3 (08:20→20:51)
[2020-04-28] MEDS: Zinc Sulfate 220 MG CAP PO SCH (08:21)
[2020-04-28 09:00] LABS: Bilirubin Negative (Negative); Blood, Urine 1+ (Negative); Clarity Turbid (Clear); Glucose, Urine (Dipstick) 70 mg/dL (Negative); Ketone, Urine Negative (Negative); Leukocyte 250 Leu/uL (Negative); Nitrite Negative (Negative); Protein, Urine (Dipstick) 600 mg/dL (Neg-Trace); Squamous Epithelial 0-3 HPF (0-3); Urobilinogen Normal mg/dL (Less than 2); pH, Urine 6.5 (5.0-9.0)
[2020-04-28] MEDS ORDERED: Dexamethasone 4 mg/ml Vial SLOW IVP SCH (09:00)
[2020-04-28] MEDS ORDERED: FLU VACC QS2020-21(65YR UP)/PF 240 MCG/0.7 ML SYRINGE IM ONE (09:00)
[2020-04-28] MEDS ORDERED: Enoxaparin Sodium 40 MG/0.4 ML SYRINGE SC SCH (09:00)
[2020-04-28 09:16] LABS: Bacteria/HPF Rare-Few HPF (None Seen); Yeast-Budding None Seen HPF (None Seen)
--- NOTE | 2020-04-28 09:23 | PDOC.HOSPP ---
- Subjective Encounter Date: 04/28/20 Encounter Time: 07:15 Subjective: Patient still short of breath, she has cough productive of sputum, no fever overnight, she has negative COVID-19 and influenza screen, - Objective Vital Signs & Weight: Vital Signs (12 hours) Temp Pulse Resp BP BP BP Pulse Ox 04/28/20 08:00 98.9 F 89 20 140/63 100 04/28/20 04:00 98.8 F 96 22 H 111/65 96 04/28/20 01:50 97.3 F L 87 16 161/76 H 93 L 04/27/20 22:34 98 04/27/20 22:14 82 173/73 H 04/27/20 21:30 97 Weight Weight 191 lb 11.2 oz Result Diagrams: 04/28/20 05:08 04/28/20 05:08 Additional Labs: Accuchecks 04/27/20 21:05 POC Glucose 102 H EKG Reviewed by me: Yes Hospitalist ROS - Review of Systems Constitutional: reports: weakness ENT: denies: ear pain, ear discharge, nose pain, nose discharge, nose congestion, mouth pain, mouth swelling, throat pain, throat swelling, other Respiratory: reports: cough, shortness of breath, SOB with excertion, sputum. denies: dry, hemoptysis, pleuritic pain, wheezing, other Cardiovascular: denies: chest pain, palpitations, orthopnea, paroxysmal noc. dyspnea, edema, light headedness, other Gastrointestinal: denies: nausea, vomiting, abdominal pain, diarrhea, constipation, melena, hematochezia, other Genitourinary: denies: dysuria, frequency, incontinence, hematuria, retention, other Musculoskeletal: denies: neck pain, shoulder pain, arm pain, back pain, hand pain, leg pain, foot pain, other Skin: denies: rash, lesions, kiran, bruising, other - Medication Medications: Active Medications Generic Name Dose Route Start Last Admin Trade Name Elieq PRN Reason Stop Dose Admin Ascorbic Acid 1,000 mg 04/28/20 09:00 04/28/20 08:19 Ascorbic Acid 500 Mg Chewable Tablet PO 1,000 mg DAILY PATRICK Administration Aspirin 325 mg 04/28/20 09:00 04/28/20 08:18 Aspirin 325 Mg Tab PO 325 mg DAILY PATRICK Administration Dexamethasone 6 mg 04/28/20 09:00 04/28/20 08:20 Dexamethasone 4 Mg/Ml Vial SLOW IVP 6 mg DAILY PATRICK Administration Enoxaparin Sodium 40 mg 04/28/20 09:00 04/28/20 08:19 Enoxaparin Sodium 40 Mg/0.4 Ml Syringe SC 40 mg 0900 PATRICK Administration Nifedipine 30 mg 04/27/20 21:00 04/28/20 08:18 Nifedipine Xl 30 Mg Tab PO 30 mg BID PATRICK Administration Pantoprazole Sodium 40 mg 04/28/20 09:00 04/28/20 08:19 Pantoprazole 40 Mg Tab PO 40 mg DAILY PATRICK Administration Prednisolone Acetate 1 drop 04/27/20 21:00 04/28/20 08:20 Prednisolone 1% Ophth Susp 5 Ml Bottle L EYE 1 drp TID PATRICK Administration Simvastatin 5 mg 04/27/20 21:00 04/27/20 22:14 Simvastatin 5 Mg Tab PO 5 mg HS PATRICK Administration Vitamin B Complex/Vit C/Folic Acid 1 tab 04/28/20 09:00 04/28/20 08:19 Folic Acid/Vit B Comp W-C PO 1 tab DAILY PATRICK Administration Zinc Sulfate 220 mg 04/28/20 09:00 04/28/20 08:21 Zinc Sulfate 220 Mg Cap PO 220 mg DAILY PATRICK Administration - Exam General Appearance: NAD, awake alert Eye: PERRL, anicteric sclera ENT: normocephalic atraumatic, no oropharyngeal lesions Neck: supple, symmetric, no JVD, no thyromegaly Heart: RRR, no gallops, no rubs Respiratory: no wheezes, no ronchi Respiratory - other findings: Scattered rales noted on the right side, Gastrointestinal: soft, non-tender, non-distended, normal bowel sounds Gastrointestinal - other findings: Obesity noted Extremities: no clubbing, no edema Skin: normal turgor, no lesions Neurological: no focal deficits Musculoskeletal: normal tone, normal strength Psychiatric: normal affect, normal behavior Hosp A/P (1) Acute respiratory failure with hypoxia Code(s): J96.01 - ACUTE RESPIRATORY FAILURE WITH HYPOXIA Status: Acute (2) Pneumonia Code(s): J18.9 - PNEUMONIA, UNSPECIFIED ORGANISM Status: Acute Qualifiers: Pneumonia type: due to unspecified organism Laterality: unspecified laterality Lung location: unspecified part of lung Qualified Code(s): J18.9 - Pneumonia, unspecified organism (3) UTI (urinary tract infection) Status: Acute Qualifiers: Urinary tract infection type: acute cystitis Hematuria presence: without hematuria Qualified Code(s): N30.00 - Acute cystitis without hematuria (4) Sepsis Code(s): A41.9 - SEPSIS, UNSPECIFIED ORGANISM Status: Acute Qualifiers: Sepsis type: sepsis due to unspecified organism Sepsis acute organ dysfunction status: with acute organ dysfunction Severe sepsis acute organ dysfunction type: acute respiratory failure Acute respiratory failure type: with hypoxia Severe sepsis shock status: without septic shock Qualified Code(s): A41.9 - Sepsis, unspecified organism; R65.20 - Severe sepsis without septic shock; J96.01 - Acute respiratory failure with hypoxia (5) Type 1 non-ST elevation myocardial infarction (NSTEMI) Code(s): I21.4 - NON-ST ELEVATION (NSTEMI) MYOCARDIAL INFARCTION Status: Acute (6) Hypoglycemia associated with type 2 diabetes mellitus Code(s): E11.649 - TYPE 2 DIABETES MELLITUS WITH HYPOGLYCEMIA WITHOUT COMA Status: Acute (7) Diabetes type 2, controlled Code(s): E11.9 - TYPE 2 DIABETES MELLITUS WITHOUT COMPLICATIONS Status: Chronic Qualifiers: Diabetes mellitus oysterman insulin use: with fpc use Diabetes mellitus complication status: with hypoglycemia Qualified Code(s): E11.649 - Type 2 diabetes mellitus with hypoglycemia without coma; Z79.4 - emt intermediate (current) use of insulin (8) CKD (chronic kidney disease), stage IV Code(s): N18.4 - CHRONIC KIDNEY DISEASE, STAGE 4 (SEVERE) Status: Chronic (9) HLD (hyperlipidemia) Code(s): E78.5 - HYPERLIPIDEMIA, UNSPECIFIED Status: Chronic Qualifiers: Hyperlipidemia type: pure hypercholesterolemia Qualified Code(s): E78.00 - Pure hypercholesterolemia, unspecified; E78.0 - Pure hypercholesterolemia (10) HTN (hypertension) Code(s): I10 - ESSENTIAL (PRIMARY) HYPERTENSION Status: Chronic Qualifiers: Hypertension type: essential hypertension Qualified Code(s): I10 - Essential (primary) hypertension - Plan old records reviewed/req, continue antibiotics, respiratory therapy, DVT proph w/heparin Based on chest x-ray and presentation there was suspicious for viral pneumonia like COVID-19 but COVID-19 test is negative and influenza screen is negative, she has leukocytosis which is slightly better today, patient is on broad- spectrum antibiotic coverage with Rocephin and azithromycin, as there is suspicious for COVID-19 infection we will continue respiratory isolation for now, infectious disease has been consulted, today I will check urine streptococcal pneumonia antigen and Legionella antigen, tomorrow we will repeat labs, will wean off oxygen as tolerated, will discontinue dexamethasone, echocardiography pending, cardiology consulted for elevated troponin which appears to be related with a demand ischemia,
--- NOTE | 2020-04-28 10:03 | CON ---
DATE OF CONSULTATION: 04/28/2020 INDICATION FOR CONSULTATION: A 69-year-old female who had not been doing well at home. She has not been feeling well since . She has had some problems with her diabetes. Her blood sugar was actually fluctuating that was low on admission and then, she was seen in the emergency room. She was found to have abnormal cardiac enzymes, uncertain as to why enzymes were obtained, but she had abnormal enzymes. Her EKG was normal. Her cardiac enzymes were indeterminate. We were asked to see her. This unfortunate 69-year-old female with history of hypertension, diabetes, and chronic kidney disease, underwent a cardiac catheterization in January of this year, who was found to have normal coronary arteries with normal ejection fraction. Her EKG has remained unremarkable. Her cardiac enzymes are indeterminate and this most likely indicates a type 2 myocardial infarction, non ST-segment elevation, most likely due to demand ischemia. Her troponin I was originally when she was here, was 0.0624, decreased down to 0.602 and then down to 0.576. She also has chronic kidney disease, which may be playing a role cardiac enzymes trending down very minimally. PAST MEDICAL HISTORY: Significant for diabetes; hypertension; dyslipidemia; gastroesophageal reflux disease; chronic kidney disease, is managed by Dr. Gomez; also obesity; she has had right foot fracture repair in 2007. FAMILY HISTORY: Noncontributory. SOCIAL HISTORY: No history of alcohol or tobacco abuse. ALLERGIES: SHE HAS SOME PROBLEMS WITH ADVIL, CAUSING HER TO ITCH. MEDICATIONS: Her medications prior to admission included: 1. Albuterol sulfate. 2. Ophthalmic drops. 3. Humalog insulin. 4. Omeprazole. 5. Simvastatin 5 mg once a day. 6. Metoprolol ER 50 mg once a day. 7. Furosemide 40 mg b.i.d. as needed. 8. At this time, she is on aspirin 325 mg a day. 9. Dexamethasone. 10. Lovenox 40 mg subcu once a day. 11. Folic acid. 12. She has been started on Procardia 30 mg b.i.d. 13. Protonix 40 mg a day. 14. She has been placed on prednisolone. 15. Simvastatin 5 mg. 16. Zinc 220 mg. 17. She is also giving other p.r.n. medications. REVIEW OF SYSTEMS: A 12-point review of systems is relatively unremarkable except what is noted in the History of Present Illness. PHYSICAL EXAMINATION: GENERAL: Reveals an elderly female in no acute distress at this time. She is alert. She is oriented. VITAL SIGNS: Stable. Her blood pressure was 140/68, heart rate is 89, shows a sinus rhythm. She is afebrile. Respiratory rate is 20, O2 saturation is 100%. HEENT: Shows the head to be normocephalic and atraumatic. Carotid pulses are present. I did not hear any significant bruits. CHEST: She does have some slight rales at the base on the right side, but otherwise clear after coughing. Otherwise, there were no significant abnormalities noted. I did not hear any wheezing or rhonchi. CARDIOVASCULAR: Reveals a regular rate and rhythm. She has normal S1, S2. I do not hear an S3, S4. There were no significant murmurs, heaves, thrills, bruits, or rubs noted. ABDOMEN: Shows obesity with positive bowel sounds. No organomegaly or masses are noted. EXTREMITIES: Show trace edema, but otherwise nothing unremarkable. Pulses are present, somewhat decreased, but are present. NEUROLOGIC: She appears to be fully intact. SKIN: Warm and dry. LABORATORY DATA: Otherwise show a sodium of 138; potassium 5.3; on admission, blood sugar was 33, increased up now to 126; BUN was 37; creatinine was 2.7; and bicarb was 24. Alkaline phosphatase was 129 and LDH was 366, both of which were elevated. D-dimer was 0.85. WBC of 20.4, hemoglobin 11.6, hematocrit was 36.1, and platelet count was 217,000. Her chest x-ray shows some infiltrative lung disease, possibly COVID pneumonia. She also has mild cardiomegaly. Thus far, COVID has been negative. IMPRESSION: 1. Elderly female with possible COVID pneumonia, which is yet to be either community-acquired pneumonia, though COVID test is still negative. This will be dealt with by the primary care service. 2. Most likely, type 2 myocardial infarction with demand ischemia and also elevated troponin is most likely due to chronic kidney disease. This will be a slow decrease in the troponin with the kidney disease. She is unable to filter this out, but at this time in view of the fact that she had normal coronaries just 2 to 3 months ago and also has normal EKG and normal left ventricular systolic function. There is no further cardiac workup indicated at this time. We will continue to treat her as you are, continue to treat her dyslipidemia as well as her hypertension and diabetes. Thank you very much for the consult on this patient, but at this time, I will sign off. If there are any further cardiac abnormalities or new issues, please do not hesitate to contact me. At this time, this most likely is a type 2 myocardial infarction with demand ischemia. Job ID: [id number]
[2020-04-28] MEDS: HumaLOG 300 UNITS/3 ML VIAL SC PRN ×3 (11:46→21:59)
[2020-04-28 11:51] LABS: Legionella Urinary Ag Negative (Negative)
[2020-04-28 11:52] LABS: Strep pneumo Urine Ag NEGATIVE (NEGATIVE)
--- NOTE | 2020-04-28 13:55 | CON ---
DATE OF CONSULTATION: 04/28/2020 REASON FOR CONSULTATION: Pneumonitis, but negative COVID PCR. HISTORY OF PRESENT ILLNESS: A 69-year-old who has had respiratory symptoms now for at least a week and a half maybe even before that and according to Dr. Candelaria's note since , she was tachypneic, was given O2 per nasal cannula and she had quite a bit of cough and chest discomfort. She had a negative COVID PCR in January 19 and the next one is recorded this admission, but she must have had other tests done elsewhere possibly. The chest x-ray this admission demonstrated bilateral lung infiltrates predominant on the right side. Initial findings included a white cell count 22,000 with 14% bands and hemoglobin 11. D-dimer 0.97. Creatinine is 2.72 with a baseline of 1.36 in January last year. Currently, Ms. Blackburn is tachypneic, feeling uncomfortable at rest. She has O2 per nasal cannula, but she is saturating 99% to 100%. Denies headaches. No sore throat. No chest pain. No abdominal pain or diarrhea. No genitourinary symptoms. No neurological symptoms. PAST MEDICAL HISTORY: Osteoarthritis, CKD stage 3, type 2 diabetes, hypertension. FAMILY HISTORY: Type 2 diabetes, coronary artery disease. SOCIAL HISTORY: Never smoker. Lives with family in the area. CURRENT MEDICATIONS: 1. Azithromycin. 2. Rocephin. 3. She is not on any corticosteroids. PHYSICAL EXAMINATION: VITAL SIGNS: She has been afebrile, blood pressure 140/69, pulse 85, respirations 18. SKIN: Peripheral IV access. No areas of skin breakdown. LYMPHATIC: No lymphadenopathy. HEENT: Ocular movements conjugate. No [place] teeth remaining. NECK: No jugular vein distention. LUNGS: With scattered inspiratory crackles more prominent on the right side at the base. No wheezing. HEART: S1 and S2. Regular rate. No S3 or S4. ABDOMEN: Soft, not distended or tender. No ascites. No bladder distention. MUSCULOSKELETAL: No joint inflammatory activity or edema. Pulses 1+ in dorsalis pedis. Moves extremities equally. Plantar response flexor. NEUROLOGIC: Awake, a little bit bewildered by the situation, but she is able to speak in full sentences and oriented. FOLLOWUP LABORATORY DATA: Creatinine is at 2.7. Liver profile with normal findings except for alkaline phosphatase 129, LDH 366. CRP 8.92. Repeat SARS-CoV PCR negative. Influenza RT PCR negative. Legionella and Strep pneumoniae antigen negative as well. Repeat white cell count 20.4, hemoglobin 11, platelets 217 with 92% neutrophils. Microbiology, negative blood cultures thus far. ASSESSMENT: Type 2 diabetes, hypertension with respiratory symptoms for the past 3 weeks or more with two negative COVID tests. DISCUSSION: The patient had a cardiac evaluation by Dr. Martinez for the likely said type 2 myocardial infarction with demand ischemia and elevated troponin probably also related to CKD. She has a normal LV function, so no further cardiac workup is indicated in view of the recent clean coronaries just 2 or 3 months before. We will submit a SARS-CoV-2 antibody test. Otherwise, she does not require any other intervention from that standpoint. Possibility of superimposed bacterial pneumonia is also considered and I think in her case it is warranted to continue antimicrobial therapy. Other atypical pathogens including atypical mycobacterial infections are less likely. CHF related to diastolic dysfunction is one consideration. Her last echo was from 2018 and there is no comment on the diastolic impairment, but that might have evolved since. Job ID: [id number] [facility]
[2020-04-28] MEDS: cefTRIAXone\\ROCEPHIN 1 GM in Sodium Chloride 0.9% 100 ML IVPB SCH (15:11)
[2020-04-28] MEDS: Azithromycin 500 MG in Sodium Chloride 0.9% 250 ML 250 ML IVPB SCH (16:44)
[2020-04-28] MEDS: Simvastatin 5 MG TAB PO SCH (20:16)
[2020-04-28] MEDS: Heparin 5,000 UNITS/ML VIAL SC SCH (20:16)
[2020-04-28 21:31] LABS: Glucose 599 mg/dL (80-115)
[2020-04-28] MEDS ORDERED: HumaLOG 300 UNITS/3 ML VIAL SC PRN (21:32)
[2020-04-28] MEDS: Diabetic Tussin 200 MG/10 ML UDCUP PO PRN (21:59)
[2020-04-29] MEDS: Diabetic Tussin 200 MG/10 ML UDCUP PO PRN ×2 (03:51→17:00)
[2020-04-29] MEDS: Acetaminophen 325 MG TAB PO PRN (03:51)
[2020-04-29 05:18] LABS: ALT (SGPT) 32 U/L (8-55); AST (SGOT) 41 U/L (5-34); Albumin 2.9 g/dL (3.4-4.8); Alkaline Phosphatase 119 U/L (40-110); Anion Gap 19 mmol/L (10-20); BUN (Urea Nitrogen) 54 mg/dL (9.8-20.1); Bilirubin, Total 0.2 mg/dL (0.2-1.2); Calc. Creatinine Clearance 22 mL/min (70-130); Calcium 8.2 mg/dL (7.8-10.44); Carbon Dioxide 17 mmol/L (23-31); Chloride 106 mmol/L (98-107); Globulin 3.3 g/dL (2.4-3.5); Glucose 76 mg/dL (80-115); Potassium 4.6 mmol/L (3.5-5.1); Protein, Total 6.2 g/dL (6.0-8.3); Sodium 137 mmol/L (136-145)
[2020-04-29 05:48] LABS: #Basophils 0.1 thou/uL (0.0-0.2); #Eosinphils 0.1 thou/uL (0.0-0.7); #Lymphocytes 2.4 thou/uL (1.20-3.40); #Monocytes 2.1 thou/uL (0.11-0.59); #Neutrophils 15.1 thou/uL (1.40-6.50); %Basophils 0.3 % (0.0-1.0); %Eosinophils 0.5 % (0.0-10.0); %Lymphocytes 12.1 % (21.0-51.0); %Monocytes 10.5 % (0.0-10.0); %Neutrophils 76.5 % (42.0-75.0); Hemoglobin 11.4 g/dL (12.0-16.0); Mean Corpuscular HGB CONC 32.4 g/dL (32.0-36.0); Mean Corpuscular Hemoglobin 29.4 pg (27.0-31.0); Mean Corpuscular Volume 90.7 fL (78.0-98.0); Mean Platelet Volume 9.2 fL (7.4-10.4); Platelet Count 165 thou/uL (130-400); RBC Distribution Width 12.6 % (11.5-14.5); Red Blood Cell (RBC) Count 3.87 mill/uL (4.20-5.40); White Blood Cell (WBC) Count 19.8 thou/uL (4.8-10.8)
[2020-04-29] MEDS: Heparin 5,000 UNITS/ML VIAL SC SCH ×2 (08:02→19:47)
[2020-04-29] MEDS: Ascorbic Acid 500 mg Chewable Tablet PO SCH (08:03)
[2020-04-29] MEDS: Folic Acid/Vit B Comp W-C PO SCH (08:04)
[2020-04-29] MEDS: Aspirin 325 MG TAB PO SCH (08:04)
[2020-04-29] MEDS: NIFEdipine XL 30 MG TAB PO SCH (08:04)
[2020-04-29] MEDS: Zinc Sulfate 220 MG CAP PO SCH (08:05)
[2020-04-29] MEDS: prednisoLONE 1% Ophth Susp 5 ml Bottle L EYE SCH ×3 (08:11→19:46)
[2020-04-29] MEDS ORDERED: HumuLIN 70/30 (300 UNITS/3 ML VIAL) SC SCH ×2 (09:00→21:00)
[2020-04-29 11:21] LABS: SARS-CoV-2 IgG Ab Non-Reactive (NonReactive); SARS-CoV-2 IgG Index 0.01 S/CO (< 1.40)
[2020-04-29] MEDS: HumaLOG 300 UNITS/3 ML VIAL SC PRN ×3 (12:39→20:15)
--- NOTE | 2020-04-29 16:32 | EKG ---
Test Reason : Blood Pressure : / mmHG Vent. Rate : 080 BPM Atrial Rate : 080 BPM P-R Int : 158 ms QRS Dur : 076 ms QT Int : 396 ms P-R-T Axes : 069 048 047 degrees QTc Int : 456 ms Sinus rhythm with occasional Premature ventricular complexes Otherwise normal ECG Confirmed by STACY Coto, ROXY ([id number]), content editor ANTONIO PATETRSON ([id number]) on 04/29/2020 4:31:58 PM Referred By: Confirmed By:ROXY KUMAR M.D.
[2020-04-29] MEDS: cefTRIAXone\\ROCEPHIN 1 GM in Sodium Chloride 0.9% 100 ML IVPB SCH (17:00)
[2020-04-29] MEDS: Azithromycin 500 MG in Sodium Chloride 0.9% 250 ML 250 ML IVPB SCH (17:00)
[2020-04-29] MEDS: Mometasone 200 MCG/Formoterol 5 MCG 120 PUFF INHALER INH SCH (17:49)
[2020-04-29] MEDS: Simvastatin 5 MG TAB PO SCH (19:47)
--- NOTE | 2020-04-29 20:16 | PDOC.HOSPP ---
- Subjective Encounter Date: 04/29/20 Encounter Time: 18:30 Subjective: Patient seen and examined for respiratory failure due to pneumonia. Shortness of breath improving. No fever or chills. Denies any chest pain. - Objective Vital Signs & Weight: Vital Signs (12 hours) Temp Pulse Resp BP Pulse Ox 04/29/20 17:50 84 04/29/20 16:40 97.7 F 86 24 H 185/75 H 96 04/29/20 11:35 97.6 F 82 24 H 145/78 H 98 Weight Admit Weight 191 lb 11.2 oz Weight 191 lb 4.8 oz I&O: 04/28/20 04/29/20 04/30/20 06:59 06:59 06:59 Intake Total 1730 Output Total 750 Balance 980 Result Diagrams: 04/30/20 04:31 04/30/20 04:30 Additional Labs: Accuchecks 04/29/20 04/29/20 04/29/20 20:04 16:38 11:32 POC Glucose 281 H 285 H 183 H 04/29/20 04/29/20 06:36 02:04 POC Glucose 86 220 H Abnormal Lab Results - Last 48 hrs 04/27/20 08:20: Urine Clarity Turbid A, Urine Protein 600 A, Urine Glucose (UA) 70 A, Urine Blood 1+ A, Ur Leukocyte Esterase 250 A, Urine RBC 4-6 A, Urine WBC 7-10 A 04/29/20 04:51: Carbon Dioxide 17 L, BUN 54 H, Creatinine 3.27 H, AST 41 H, Alkaline Phosphatase 119 H, Albumin 2.9 L, Albumin/Globulin Ratio 0.9 L 04/29/20 04:51: WBC 19.8 H, RBC 3.87 L, Hgb 11.4 L, Hct 35.1 L, Neutrophils % 76.5 H, Lymphocytes % 12.1 L, Monocytes % 10.5 H, Neutrophils # 15.1 H, Monocytes # 2.1 H Microbiology - Entire Visit 04/27/20 14:44 Venous blood - Right Arm Blood Culture - Preliminary NO GROWTH AT 48 HOURS 04/27/20 14:47 Venous blood - Left Hand Blood Culture - Preliminary Coagulase Neg Staphylococcus 04/28/20 08:20 Urine clean catch Urine Culture - Preliminary Gram Negative [facility] Reviewed by me: Yes (Chest x-raypneumonia) EKG Reviewed by me: Yes (Sinus rhythm on telemetry) Hospitalist ROS - Review of Systems Cardiovascular: denies: chest pain, palpitations, orthopnea, paroxysmal noc. dyspnea, edema, light headedness, other Gastrointestinal: denies: nausea, vomiting, abdominal pain, diarrhea, constipation, melena, hematochezia, other - Medication Medications: Active Medications Generic Name Dose Route Start Last Admin Trade Name Freq PRN Reason Stop Dose Admin Acetaminophen 650 mg 04/27/20 20:01 04/29/20 03:51 Acetaminophen 325 Mg Tab PO 650 mg Q4H PRN Administration Headache/Fever/Mild Pain (1-3) Albuterol Sulfate 2 puff 04/27/20 20:15 04/29/20 17:48 Proventil Inhaler 6.7 G (200 Inhalations) INH 2 puff [id number] PRN Administration Wheezing Ascorbic Acid 1,000 mg 04/28/20 09:00 04/29/20 08:03 Ascorbic Acid 500 Mg Chewable Tablet PO 1,000 mg DAILY PATRICK Administration Aspirin 325 mg 04/28/20 09:00 04/29/20 08:04 Aspirin 325 Mg Tab PO 325 mg DAILY PATRICK Administration Guaifenesin 200 mg 04/27/20 20:01 04/29/20 17:00 Diabetic Tussin 200 Mg/10 Ml Udcup PO 200 mg Q4H PRN Administration Cough Heparin Sodium (Porcine) 5,000 units 04/28/20 21:00 04/29/20 19:47 Heparin 5,000 Units/Ml Vial SC 5,000 units Q12HR PATRICK Administration Hydralazine HCl 10 mg 04/27/20 20:01 04/29/20 17:50 Hydralazine 20 Mg/Ml Vial SLOW IVP 10 mg Q4H PRN Administration SBP > 180 and HR < 70 Ceftriaxone Sodium 1 gm/ 100 mls @ 200 mls/hr 04/28/20 15:00 04/29/20 17:00 Sodium Chloride IVPB 100 mls 1500 PATRICK Administration Azithromycin 500 mg/ Sodium 250 mls @ 250 mls/hr 04/28/20 16:00 04/29/20 17:00 Chloride IVPB 250 mls 1600 PATRICK Administration Insulin Human Lispro 0 units 04/27/20 20:01 04/28/20 21:59 Humalog 300 Units/3 Ml Vial SC 5 unit .BEDTIME SLIDING SC PRN Administration Bedtime Correctional Scale Insulin Human Lispro 0 units 04/29/20 09:28 04/29/20 16:56 Humalog 300 Units/3 Ml Vial SC 6 unit .MODERATE SLIDING SC PRN Administration Moderate Correctional Scale Mometasone Furoate/Formoterol Fumar 2 puff 04/29/20 18:30 04/29/20 17:49 Mometasone 200 Mcg/Formoterol 5 Mcg 120 Puff Inhaler INH 2 puff BID-RT PATRICK Administration Pantoprazole Sodium 40 mg 04/28/20 09:00 04/29/20 08:05 Pantoprazole 40 Mg Tab PO 40 mg DAILY PATRICK Administration Prednisolone Acetate 1 drop 04/27/20 21:00 04/29/20 19:46 Prednisolone 1% Ophth Susp 5 Ml Bottle L EYE 1 drp TID PATRICK Administration Simvastatin 5 mg 04/27/20 21:00 04/29/20 19:47 Simvastatin 5 Mg Tab PO 5 mg HS PATRICK Administration Vitamin B Complex/Vit C/Folic Acid 1 tab 04/28/20 09:00 04/29/20 08:04 Folic Acid/Vit B Comp W-C PO 1 tab DAILY PATRICK Administration Zinc Sulfate 220 mg 04/28/20 09:00 04/29/20 08:05 Zinc Sulfate 220 Mg Cap PO 220 mg DAILY PATRICK Administration - Exam General Appearance: ill appearing Neck: supple, no JVD Heart: RRR, no gallops Respiratory: no wheezes, rales, rhonchi Gastrointestinal: soft, non-tender, normal bowel sounds Extremities: no cyanosis, no clubbing Hosp A/P - Plan DVT proph w/heparin Patient is 69-year-old female with diabetes mellitus type 2, hypertension, hyperlipidemia and COPD presented to the hospital on 04/30 with 2 weeks history of cough, fever along with generalized malaise. Patient was placed on O2 supplementation in the emergency room. She was saturating 94% on 4 L. Chest x- ray was consistent with bilateral infiltrates. She was found to have elevated D-dimer at 0.97. Please refer to the history and physical for further details. Patient was admitted to the telemetry unit with above diagnosis. She was placed on O2 supplementation with nebulizer treatment and steroids which was later discontinued after negative Covid. Patient was seen by infectious disease Dr. Buchanan. Covid antibody tests came back negative. Influenza and urinary antigen for strep pneumo and Legionella has been negative. She was started on ceftriaxone and azithromycin on admission. Patient was found to have elevated troponin up to 0.624. Patient had a recent cardiac catheterization earlier this year that showed normal coronaries. Cardiology recommended no further work-up. Assessment: Acute hypoxic respiratory failure with Sepsis due to pneumoniasuspected gram- negativePOA Covid antigen/antibody/influenza/strep pneumo antigen/Legionella antigen negative On ceftriaxone and azithromycin Infectious disease following Type II myocardial infarction present on admission Normal coronaries on cardiac catheterization in 01/29 Diabetes mellitus type 2 Urinary tract infection RICHELLE on CKD stage IVPOA Hyperkalemiaresolved Elevated inflammatory markers Hypertension Hyperlipidemia Obesity with a BMI 38.6 Blood culture 1 of 2+ for coagulase-negative Staphylococcusprobably contamination Plan: Continue azithromycin with ceftriaxone. Will discontinue aggressive sliding scale. Start moderate sliding scale. Discontinue Humalog mix 7525. Start NPH 10 units twice daily. Change Procardia XL to 30 mg nightly. Reduce aspirin to 81 mg daily. Continue heparin for DVT prophylaxis. Monitor renal function closely. Continue statins. Will discontinue COVID-19 isolation if okay with infectious disease. Consult physical therapy.
[2020-04-29] MEDS ORDERED: NIFEdipine XL 30 MG TAB PO SCH (21:00)
[2020-04-29] MEDS: NPH, Human Insulin Isophane 300 UNIT/3 ML VIAL SC SCH (21:37)
[2020-04-30 04:57] LABS: #Basophils 0.1 thou/uL (0.0-0.2); #Eosinphils 0.3 thou/uL (0.0-0.7); #Lymphocytes 2.8 thou/uL (1.20-3.40); #Monocytes 1.2 thou/uL (0.11-0.59); #Neutrophils 7.9 thou/uL (1.40-6.50); %Basophils 0.7 % (0.0-1.0); %Eosinophils 2.6 % (0.0-10.0); %Lymphocytes 22.9 % (21.0-51.0); %Monocytes 9.6 % (0.0-10.0); %Neutrophils 64.1 % (42.0-75.0); Hemoglobin 10.6 g/dL (12.0-16.0); Mean Corpuscular HGB CONC 32.1 g/dL (32.0-36.0); Mean Corpuscular Hemoglobin 29.4 pg (27.0-31.0); Mean Corpuscular Volume 91.6 fL (78.0-98.0); Mean Platelet Volume 8.9 fL (7.4-10.4); Platelet Count 227 thou/uL (130-400); RBC Distribution Width 12.6 % (11.5-14.5); Red Blood Cell (RBC) Count 3.62 mill/uL (4.20-5.40); White Blood Cell (WBC) Count 12.3 thou/uL (4.8-10.8)
[2020-04-30 05:21] LABS: ALT (SGPT) 41 U/L (8-55); AST (SGOT) 51 U/L (5-34); Albumin 2.8 g/dL (3.4-4.8); Alkaline Phosphatase 104 U/L (40-110); Anion Gap 16 mmol/L (10-20); BUN (Urea Nitrogen) 64 mg/dL (9.8-20.1); Bilirubin, Total Less than 0.2 mg/dL (0.2-1.2); Calc. Creatinine Clearance 22 mL/min (70-130); Calcium 7.9 mg/dL (7.8-10.44); Carbon Dioxide 24 mmol/L (23-31); Chloride 104 mmol/L (98-107); Globulin 3.2 g/dL (2.4-3.5); Glucose 228 mg/dL (80-115); Magnesium 2.6 mg/dL (1.6-2.6); Potassium 4.6 mmol/L (3.5-5.1); Sodium 139 mmol/L (136-145)
[2020-04-30] MEDS: Mometasone 200 MCG/Formoterol 5 MCG 120 PUFF INHALER INH SCH ×2 (05:45→18:55)
[2020-04-30] MEDS: HumaLOG 300 UNITS/3 ML VIAL SC PRN ×3 (05:45→20:51)
[2020-04-30] MEDS: NPH, Human Insulin Isophane 300 UNIT/3 ML VIAL SC SCH ×2 (08:52→20:50)
[2020-04-30] MEDS: Ascorbic Acid 500 mg Chewable Tablet PO SCH (08:55)
[2020-04-30] MEDS: Aspirin 81 mg Enteric Coated Tablet PO SCH (08:55)
[2020-04-30] MEDS: Diabetic Tussin 200 MG/10 ML UDCUP PO PRN (08:55)
[2020-04-30] MEDS: Heparin 5,000 UNITS/ML VIAL SC SCH ×2 (08:56→20:49)
[2020-04-30] MEDS: Acetaminophen 325 MG TAB PO PRN (08:56)
[2020-04-30] MEDS: Zinc Sulfate 220 MG CAP PO SCH (08:56)
[2020-04-30] MEDS: Folic Acid/Vit B Comp W-C PO SCH (08:56)
[2020-04-30] MEDS: prednisoLONE 1% Ophth Susp 5 ml Bottle L EYE SCH ×3 (08:57→20:49)
[2020-04-30] MEDS ORDERED: NIFEdipine XL 30 MG TAB PO SCH ×2 (09:45→21:00)
--- NOTE | 2020-04-30 12:10 | PRG ---
DATE OF SERVICE: 04/29/2020 SUBJECTIVE: Ms. Blackburn is feeling a little better; still coughing frequently; some mucus production, white. No chest pain. No abdominal pain or diarrhea. No genitourinary symptoms. OBJECTIVE: VITAL SIGNS: T-max 99.1, BP 120/60. She is breathing 21 to 24 times a minute, saturating 100% right now, pulse 87. LUNGS: Do not have a lot of crackling, just decreased breath sounds in the left base but that is about it, a little bit of wheezing. HEART: S1, S2. Regular rate. ABDOMEN: Soft, not distended. EXTREMITIES: Moves all extremities equally. No edema. LABORATORY DATA: So, she has had now three negative SARS-CoV-2 within the past few days, and she has had negative antibody index on the as well. Her chest x-ray shows infiltrative lung changes. ASSESSMENT AND DISCUSSION: 1. Type-2 diabetes. 2. Hypertension. 3. Three weeks of respiratory symptoms, three negative COVID tests and negative antibody. This makes it unlikely that she has a SARS-CoV-2 infection and so I would advise discontinuation of isolation. She is currently receiving ceftriaxone to be continued. She probably needs a little bit of steroids. She probably has some bronchospasm and she is already on inhalers, but she probably needs Dulera or something similar. Job ID: [id number]
[2020-04-30] MEDS: Azithromycin 500 MG in Sodium Chloride 0.9% 250 ML 250 ML IVPB SCH (14:50)
[2020-04-30] MEDS: cefTRIAXone\\ROCEPHIN 1 GM in Sodium Chloride 0.9% 100 ML IVPB SCH (17:03)
[2020-04-30] MEDS: Sodium Chloride 0.9% 1,000 ML IV SCH (17:04)
--- NOTE | 2020-04-30 17:24 | PDOC.HOSPP ---
- Subjective Encounter Date: 04/30/20 Encounter Time: 10:00 Subjective: Patient seen and examined for respiratory failure due to pneumonia. Shortness of breath improving. Mild cough which is essentially nonproductive. Denies any chest pain, palpitations, nausea or vomiting. - Objective Vital Signs & Weight: Vital Signs (12 hours) Temp Pulse Pulse Resp BP BP BP 04/30/20 16:49 97.9 F 77 20 155/71 H 04/30/20 15:45 98.4 F 76 19 177/78 H 04/30/20 13:52 76 153/70 H 04/30/20 11:05 97.8 F 76 18 188/82 H 04/30/20 08:56 98.8 F 81 24 H 174/78 H Pulse Ox Pulse Ox 04/30/20 16:49 100 04/30/20 15:45 100 04/30/20 13:52 100 04/30/20 11:05 97 04/30/20 08:56 100 Weight Admit Weight 191 lb 11.2 oz Weight 191 lb 4.8 oz I&O: 04/29/20 04/30/20 05/01/20 06:59 06:59 06:59 Intake Total 1730 100 Output Total 750 200 Balance 980 -100 Result Diagrams: 04/30/20 04:31 04/30/20 04:30 Additional Labs: Accuchecks 04/30/20 04/30/20 04/29/20 16:57 11:07 20:04 POC Glucose 151 H 217 H 281 H Abnormal Lab Results - Last 48 hrs 04/29/20 04:51: Carbon Dioxide 17 L, BUN 54 H, Creatinine 3.27 H, AST 41 H, Alkaline Phosphatase 119 H, Albumin 2.9 L, Albumin/Globulin Ratio 0.9 L 04/29/20 04:51: WBC 19.8 H, RBC 3.87 L, Hgb 11.4 L, Hct 35.1 L, Neutrophils % 76.5 H, Lymphocytes % 12.1 L, Monocytes % 10.5 H, Neutrophils # 15.1 H, Monocytes # 2.1 H 04/30/20 04:30: BUN 64 H, Creatinine 3.22 H, Total Bilirubin Less than 0.2 L, AST 51 H, Albumin 2.8 L, Albumin/Globulin Ratio 0.9 L 04/30/20 04:31: WBC 12.3 H, RBC 3.62 L, Hgb 10.6 L, Hct 33.1 L, Neutrophils # 7.9 H, Monocytes # 1.2 H Microbiology - Entire Visit 04/28/20 08:20 Urine clean catch Urine Culture - Final 04/27/20 14:47 Venous blood - Left Hand Blood Culture - Final Coagulase Neg Staphylococcus 04/27/20 14:44 Venous blood - Right Arm Blood Culture - Preliminary NO GROWTH AT 48 HOURS EKG Reviewed by me: Yes (Sinus rhythm on telemetry) Hospitalist ROS - Review of Systems Cardiovascular: denies: chest pain, palpitations, orthopnea, paroxysmal noc. dyspnea, edema, light headedness, other Gastrointestinal: denies: nausea, vomiting, abdominal pain, diarrhea, constipation, melena, hematochezia, other - Medication Medications: Active Medications Generic Name Dose Route Start Last Admin Trade Name Freq PRN Reason Stop Dose Admin Acetaminophen 650 mg 04/27/20 20:01 04/30/20 08:56 Acetaminophen 325 Mg Tab PO 650 mg Q4H PRN Administration Headache/Fever/Mild Pain (1-3) Albuterol Sulfate 2 puff 04/27/20 20:15 04/29/20 17:48 Proventil Inhaler 6.7 G (200 Inhalations) INH 2 puff [id number] PRN Administration Wheezing Ascorbic Acid 1,000 mg 04/28/20 09:00 04/30/20 08:55 Ascorbic Acid 500 Mg Chewable Tablet PO 1,000 mg DAILY PATRICK Administration Aspirin 81 mg 04/30/20 09:00 04/30/20 08:55 Aspirin 81 Mg Enteric Coated Tablet PO 81 mg DAILY PATRICK Administration Guaifenesin 200 mg 04/27/20 20:01 04/30/20 08:55 Diabetic Tussin 200 Mg/10 Ml Udcup PO 200 mg Q4H PRN Administration Cough Heparin Sodium (Porcine) 5,000 units 04/28/20 21:00 04/30/20 08:56 Heparin 5,000 Units/Ml Vial SC 5,000 units Q12HR PATRICK Administration Hydralazine HCl 10 mg 04/27/20 20:01 04/29/20 17:50 Hydralazine 20 Mg/Ml Vial SLOW IVP 10 mg Q4H PRN Administration SBP > 180 and HR < 70 Ceftriaxone Sodium 1 gm/ 100 mls @ 200 mls/hr 04/28/20 15:00 04/30/20 17:03 Sodium Chloride IVPB 100 mls 1500 PATRICK Administration Azithromycin 500 mg/ Sodium 250 mls @ 250 mls/hr 04/28/20 16:00 04/30/20 14:50 Chloride IVPB 250 mls 1600 PATRICK Administration Sodium Chloride 1,000 mls @ 75 mls/hr 04/30/20 16:30 04/30/20 17:04 Normal Saline 0.9% IV 1,000 mls .[id number] PATRICK Administration Insulin Human Lispro 0 units 04/27/20 20:01 04/29/20 20:15 Humalog 300 Units/3 Ml Vial SC 3 unit .BEDTIME SLIDING SC PRN Administration Bedtime Correctional Scale Insulin Human Lispro 0 units 04/29/20 09:28 04/30/20 12:34 Humalog 300 Units/3 Ml Vial SC 4 unit .MODERATE SLIDING SC PRN Administration Moderate Correctional Scale Insulin Human NPH 10 unit 04/29/20 21:00 04/30/20 08:52 Nph, Human Insulin Isophane 300 Unit/3 Ml Vial SC 10 unit BID PATRICK Administration Mometasone Furoate/Formoterol Fumar 2 puff 04/29/20 18:30 04/30/20 05:45 Mometasone 200 Mcg/Formoterol 5 Mcg 120 Puff Inhaler INH 2 puff BID-RT PATRICK Administration Pantoprazole Sodium 40 mg 04/28/20 09:00 04/30/20 08:56 Pantoprazole 40 Mg Tab PO 40 mg DAILY PATRICK Administration Prednisolone Acetate 1 drop 04/27/20 21:00 04/30/20 15:40 Prednisolone 1% Ophth Susp 5 Ml Bottle L EYE 1 drp TID PATRICK Administration Simvastatin 5 mg 04/27/20 21:00 04/29/20 19:47 Simvastatin 5 Mg Tab PO 5 mg HS PATRICK Administration Vitamin B Complex/Vit C/Folic Acid 1 tab 04/28/20 09:00 04/30/20 08:56 Folic Acid/Vit B Comp W-C PO 1 tab DAILY PATRICK Administration Zinc Sulfate 220 mg 04/28/20 09:00 04/30/20 08:56 Zinc Sulfate 220 Mg Cap PO 220 mg DAILY PATRICK Administration - Exam General Appearance: ill appearing Neck: supple, no JVD Heart: RRR, no gallops Respiratory: no wheezes, rales, rhonchi Gastrointestinal: soft, non-tender, non-distended, normal bowel sounds, no guarding, no rigidity Extremities: no cyanosis, no clubbing Neurological: no new deficit Psychiatric: normal affect, A&O x 3 Hosp A/P - Plan DVT proph w/heparin, DVT proph w/SCDs Patient is 69-year-old female with diabetes mellitus type 2, hypertension, hyperlipidemia and COPD presented to the hospital on 04/30 with 2 weeks history of cough, fever along with generalized malaise. Patient was placed on O2 supplementation in the emergency room. She was saturating 94% on 4 L. Chest x- ray was consistent with bilateral infiltrates. She was found to have elevated D-dimer at 0.97. Please refer to the history and physical for further details. Patient was admitted to the telemetry unit with above diagnosis. She was placed on O2 supplementation with nebulizer treatment and steroids which was later discontinued after negative Covid. Patient was seen by infectious disease Dr. Buchanan. Covid antibody tests came back negative. Influenza and urinary antigen for strep pneumo and Legionella has been negative. She was started on ceftriaxone and azithromycin on admission. Patient was found to have elevated troponin up to 0.624. Patient had a recent cardiac catheterization earlier this year that showed normal coronaries. Cardiology recommended no further work-up. Assessment: Acute hypoxic respiratory failure with Sepsis due to pneumoniasuspected gram- negativePOA Covid antigen/antibody/influenza/strep pneumo antigen/Legionella antigen ne gative On ceftriaxone and azithromycin Infectious disease following Type II myocardial infarction present on admission Normal coronaries on cardiac catheterization in 01/29 Diabetes mellitus type 2 Urinary tract infection RICHELLE on CKD stage IVPOA Hyperkalemiaresolved Elevated inflammatory markers Hypertension Hyperlipidemia Obesity with a BMI 38.6 Blood culture 1 of 2+ for coagulase-negative Staphylococcusprobably contamination Plan: Continue IV ceftriaxone with azithromycin. Start gentle hydration due to RICHELLE. Increase Procardia XL to 90 mg daily due to elevated blood pressure recheck labs in a.m. COVID-19 isolation discontinued. Will add albuterol inhaler every 4 hours and as needed.. Continue NPH with sliding scale. Physical therapy.
[2020-04-30] MEDS ORDERED: PROVENTIL INHALER 6.7 G (200 INHALATIONS) INH PRN (17:53)
[2020-04-30] MEDS: PROVENTIL INHALER 6.7 G (200 INHALATIONS) INH SCH ×2 (18:59→22:11)
[2020-04-30] MEDS: Simvastatin 5 MG TAB PO SCH (20:49)
[2020-04-30] MEDS: Saccharomyces boulardii 250 MG CAP PO SCH (20:50)
[2020-04-30] MEDS: NIFEdipine XL 30 MG TAB PO SCH (20:50)
[2020-05-01] MEDS: PROVENTIL INHALER 6.7 G (200 INHALATIONS) INH SCH ×6 (02:07→22:36)
[2020-05-01 04:50] LABS: #Basophils 0.1 thou/uL (0.0-0.2); #Eosinphils 0.3 thou/uL (0.0-0.7); #Lymphocytes 1.8 thou/uL (1.20-3.40); #Neutrophils 6.4 thou/uL (1.40-6.50); %Basophils 0.9 % (0.0-1.0); %Eosinophils 3.2 % (0.0-10.0); %Monocytes 10.2 % (0.0-10.0); %Neutrophils 66.7 % (42.0-75.0); Hemoglobin 10.6 g/dL (12.0-16.0); Mean Corpuscular HGB CONC 32.1 g/dL (32.0-36.0); Mean Corpuscular Hemoglobin 29.2 pg (27.0-31.0); Mean Corpuscular Volume 91.1 fL (78.0-98.0); Mean Platelet Volume 8.8 fL (7.4-10.4); Platelet Count 232 thou/uL (130-400); RBC Distribution Width 12.6 % (11.5-14.5); Red Blood Cell (RBC) Count 3.64 mill/uL (4.20-5.40); White Blood Cell (WBC) Count 9.6 thou/uL (4.8-10.8)
[2020-05-01 05:55] LABS: ALT (SGPT) 38 U/L (8-55); AST (SGOT) 39 U/L (5-34); Albumin 2.8 g/dL (3.4-4.8); Alkaline Phosphatase 100 U/L (40-110); Anion Gap 15 mmol/L (10-20); BUN (Urea Nitrogen) 48 mg/dL (9.8-20.1); Bilirubin, Total 0.2 mg/dL (0.2-1.2); Calc. Creatinine Clearance 26 mL/min (70-130); Calcium 7.9 mg/dL (7.8-10.44); Carbon Dioxide 21 mmol/L (23-31); Chloride 107 mmol/L (98-107); Globulin 3.1 g/dL (2.4-3.5); Glucose 196 mg/dL (80-115); Potassium 4.7 mmol/L (3.5-5.1); Protein, Total 5.9 g/dL (6.0-8.3); Sodium 138 mmol/L (136-145)
[2020-05-01] MEDS: Sodium Chloride 0.9% 1,000 ML IV SCH (05:57)
[2020-05-01] MEDS: HumaLOG 300 UNITS/3 ML VIAL SC PRN ×2 (05:58→12:39)
[2020-05-01] MEDS: Mometasone 200 MCG/Formoterol 5 MCG 120 PUFF INHALER INH SCH ×2 (07:19→18:33)
[2020-05-01] MEDS: Aspirin 81 mg Enteric Coated Tablet PO SCH (08:38)
[2020-05-01] MEDS: Ascorbic Acid 500 mg Chewable Tablet PO SCH (08:38)
[2020-05-01] MEDS: NIFEdipine XL 60 MG TAB PO SCH (08:38)
[2020-05-01] MEDS: Zinc Sulfate 220 MG CAP PO SCH (08:39)
[2020-05-01] MEDS: Folic Acid/Vit B Comp W-C PO SCH (08:39)
[2020-05-01] MEDS: prednisoLONE 1% Ophth Susp 5 ml Bottle L EYE SCH ×3 (08:39→21:20)
[2020-05-01] MEDS: NPH, Human Insulin Isophane 300 UNIT/3 ML VIAL SC SCH ×2 (08:40→21:21)
[2020-05-01] MEDS: Heparin 5,000 UNITS/ML VIAL SC SCH ×2 (08:40→21:19)
[2020-05-01] MEDS ORDERED: Sodium Chloride 0.9% 1,000 ML IV SCH (10:18)
[2020-05-01 13:45] VITALS: BMI 39.6
[2020-05-01] MEDS: cefTRIAXone\\ROCEPHIN 1 GM in Sodium Chloride 0.9% 100 ML IVPB SCH (14:43)
[2020-05-01] MEDS: Azithromycin 500 MG in Sodium Chloride 0.9% 250 ML 250 ML IVPB SCH (15:58)
[2020-05-01] MEDS: Simvastatin 5 MG TAB PO SCH (21:19)
[2020-05-01] MEDS: NIFEdipine XL 30 MG TAB PO SCH (21:19)
[2020-05-01] MEDS: Saccharomyces boulardii 250 MG CAP PO SCH (21:19)
--- NOTE | 2020-05-01 22:43 | PDOC.HOSPP ---
- Subjective Encounter Date: 05/01/20 Encounter Time: 15:00 Subjective: Patient seen and examined for sepsis due to pneumonia. Short of breath on minimal exertion. Mild dry cough. No chest pain or palpitations. No nausea or vomiting. - Objective Vital Signs & Weight: Vital Signs (12 hours) Temp Pulse Resp BP BP Pulse Ox 05/01/20 22:36 81 16 96 05/01/20 21:19 80 05/01/20 18:33 78 16 05/01/20 18:32 78 16 05/01/20 17:35 98.3 F 77 20 157/75 H 93 L 05/01/20 13:00 97.7 F 78 18 163/69 H 94 L Weight Admit Weight 191 lb 11.2 oz Weight 196 lb 4 oz I&O: 04/30/20 05/01/20 05/02/20 06:59 06:59 06:59 Intake Total 100 1065 1150 Output Total 200 Balance -100 1065 1150 Result Diagrams: 05/01/20 03:57 05/01/20 03:57 Additional Labs: Accuchecks 05/01/20 05/01/20 05/01/20 20:52 17:07 10:34 POC Glucose 144 H 146 H 197 H 05/01/20 04/29/20 04/28/20 05:36 05:46 20:29 POC Glucose 187 H 44 L* Greater than 500 H Abnormal Lab Results - Last 48 hrs 04/30/20 04:30: BUN 64 H, Creatinine 3.22 H, Total Bilirubin Less than 0.2 L, A ST 51 H, Albumin 2.8 L, Albumin/Globulin Ratio 0.9 L 04/30/20 04:31: WBC 12.3 H, RBC 3.62 L, Hgb 10.6 L, Hct 33.1 L, Neutrophils # 7.9 H, Monocytes # 1.2 H 05/01/20 03:57: Carbon Dioxide 21 L, BUN 48 H, Creatinine 2.71 H, AST 39 H, Serum Total Protein 5.9 L, Albumin 2.8 L, Albumin/Globulin Ratio 0.9 L 05/01/20 03:57: RBC 3.64 L, Hgb 10.6 L, Hct 33.2 L, Lymphocytes % 19.0 L, Monocytes % 10.2 H, Monocytes # 1.0 H Microbiology - Entire Visit 04/28/20 08:20 Urine clean catch Urine Culture - Final 04/27/20 14:47 Venous blood - Left Hand Blood Culture - Final Coagulase Neg Staphylococcus 04/27/20 14:44 Venous blood - Right Arm Blood Culture - Preliminary NO GROWTH AT 48 HOURS EKG Reviewed by me: Yes (Sinus rhythm on telemetry) Hospitalist ROS - Review of Systems Cardiovascular: denies: chest pain, palpitations, orthopnea, paroxysmal noc. dyspnea, edema, light headedness, other Gastrointestinal: reports: constipation. denies: nausea, vomiting, abdominal pain, diarrhea, melena, hematochezia, other - Medication Medications: Active Medications Generic Name Dose Route Start Last Admin Trade Name Freq PRN Reason Stop Dose Admin Acetaminophen 650 mg 04/27/20 20:01 04/30/20 08:56 Acetaminophen 325 Mg Tab PO 650 mg Q4H PRN Administration Headache/Fever/Mild Pain (1-3) Albuterol Sulfate 2 puff 04/30/20 18:30 05/01/20 22:36 Proventil Inhaler 6.7 G (200 Inhalations) INH 2 puff [id number] PATRICK Administration Ascorbic Acid 1,000 mg 04/28/20 09:00 05/01/20 08:38 Ascorbic Acid 500 Mg Chewable Tablet PO 1,000 mg DAILY PATRICK Administration Aspirin 81 mg 04/30/20 09:00 05/01/20 08:38 Aspirin 81 Mg Enteric Coated Tablet PO 81 mg DAILY PATRICK Administration Guaifenesin 200 mg 04/27/20 20:01 04/30/20 08:55 Diabetic Tussin 200 Mg/10 Ml Udcup PO 200 mg Q4H PRN Administration Cough Heparin Sodium (Porcine) 5,000 units 04/28/20 21:00 05/01/20 21:19 Heparin 5,000 Units/Ml Vial SC 5,000 units Q12HR PATRICK Administration Hydralazine HCl 10 mg 04/27/20 20:01 04/29/20 17:50 Hydralazine 20 Mg/Ml Vial SLOW IVP 10 mg Q4H PRN Administration SBP > 180 and HR < 70 Ceftriaxone Sodium 1 gm/ 100 mls @ 200 mls/hr 04/28/20 15:00 05/01/20 14:43 Sodium Chloride IVPB 100 mls 1500 PATRICK Administration Azithromycin 500 mg/ Sodium 250 mls @ 250 mls/hr 04/28/20 16:00 05/01/20 15:58 Chloride IVPB 250 mls 1600 PATRICK Administration Insulin Human Lispro 0 units 04/27/20 20:01 04/30/20 20:51 Humalog 300 Units/3 Ml Vial SC 2 unit .BEDTIME SLIDING SC PRN Administration Bedtime Correctional Scale Insulin Human Lispro 0 units 04/29/20 09:28 05/01/20 12:39 Humalog 300 Units/3 Ml Vial SC 2 unit .MODERATE SLIDING SC PRN Administration Moderate Correctional Scale Insulin Human NPH 10 unit 04/29/20 21:00 05/01/20 21:21 Nph, Human Insulin Isophane 300 Unit/3 Ml Vial SC Not Given BID PATRICK Mometasone Furoate/Formoterol Fumar 2 puff 04/29/20 18:30 05/01/20 18:33 Mometasone 200 Mcg/Formoterol 5 Mcg 120 Puff Inhaler INH 2 puff BID-RT PATRICK Administration Nifedipine 60 mg 05/01/20 09:00 05/01/20 08:38 Nifedipine Xl 60 Mg Tab PO 60 mg DAILY PATRICK Administration Nifedipine 30 mg 04/30/20 21:00 05/01/20 21:19 Nifedipine Xl 30 Mg Tab PO 30 mg HS PATRICK Administration Pantoprazole Sodium 40 mg 04/28/20 09:00 05/01/20 08:39 Pantoprazole 40 Mg Tab PO 40 mg DAILY PATRICK Administration Prednisolone Acetate 1 drop 04/27/20 21:00 05/01/20 21:20 Prednisolone 1% Ophth Susp 5 Ml Bottle L EYE 1 drp TID PATRICK Administration Saccharomyces Boulardii 250 mg 04/30/20 21:00 05/01/20 21:19 Saccharomyces Boulardii 250 Mg Cap PO 250 mg HS PATRICK Administration Simvastatin 5 mg 04/27/20 21:00 05/01/20 21:19 Simvastatin 5 Mg Tab PO 5 mg HS PATRICK Administration Sodium Chloride 10 ml 05/01/20 21:00 05/01/20 21:20 Flush - Normal Saline 10 Ml Syringe IVF 10 ml Q12HR PATRICK Administration Vitamin B Complex/Vit C/Folic Acid 1 tab 04/28/20 09:00 05/01/20 08:39 Folic Acid/Vit B Comp W-C PO 1 tab DAILY PATRICK Administration Zinc Sulfate 220 mg 04/28/20 09:00 05/01/20 08:39 Zinc Sulfate 220 Mg Cap PO 220 mg DAILY PATRICK Administration - Exam General Appearance: ill appearing Neck: supple, no JVD Heart: RRR, no gallops Respiratory: rales, rhonchi Gastrointestinal: soft, non-tender, no guarding, no rigidity Extremities: no cyanosis Hosp A/P - Plan DVT proph w/SCDs Patient is 69-year-old female with diabetes mellitus type 2, hypertension, hyp erlipidemia and COPD presented to the hospital on 04/30 with 2 weeks history of cough, fever along with generalized malaise. Patient was placed on O2 supplementation in the emergency room. She was saturating 94% on 4 L. Chest x- ray was consistent with bilateral infiltrates. She was found to have elevated D-dimer at 0.97. Please refer to the history and physical for further details. Patient was admitted to the telemetry unit with above diagnosis. She was placed on O2 supplementation with nebulizer treatment and steroids which was later discontinued after negative Covid. Patient was seen by infectious disease Dr. Buchanan. Covid antibody tests came back negative. Influenza and urinary antigen for strep pneumo and Legionella has been negative. She was started on ceftriaxone and azithromycin on admission. Patient was found to have elevated troponin up to 0.624. Patient had a recent cardiac catheterization earlier this year that showed normal coronaries. Cardiology recommended no further work-up. Echocardiogram showed diastolic dysfunction. Patient was also found to have acute kidney injury that improved with IV hydration. Assessment: Acute hypoxic respiratory failure with Sepsis due to pneumoniasuspected gram- negativePOA Covid antigen/antibody/influenza/strep pneumo antigen/Legionella antigen negative On ceftriaxone and azithromycin Infectious disease following Type II myocardial infarction present on admission Normal coronaries on cardiac catheterization in 01/29 Chronic diastolic heart failure Diabetes mellitus type 2 Urinary tract infection RICHELLE on CKD stage IV Hyperkalemiaresolved Elevated inflammatory markers Hypertension Hyperlipidemia Obesity with a BMI 38.6 Blood culture 1 of 2+ for coagulase-negative Staphylococcusprobably contamination Suspected obstructive sleep apneasleep study as outpatient is recommended Plan: Discontinue IV fluids. Continue ceftriaxone with azithromycin. Continue alb uterol inhalers. Continue other medications as above. Continue current dose of Procardia XL and NPH. Sleep study as outpatient is recommended
[2020-05-02] MEDS: Diabetic Tussin 200 MG/10 ML UDCUP PO PRN (00:46)
[2020-05-02] MEDS: PROVENTIL INHALER 6.7 G (200 INHALATIONS) INH SCH ×6 (02:41→23:00)
[2020-05-02] MEDS: HumaLOG 300 UNITS/3 ML VIAL SC PRN ×4 (06:29→20:51)
[2020-05-02] MEDS: Mometasone 200 MCG/Formoterol 5 MCG 120 PUFF INHALER INH SCH ×2 (06:54→18:58)
[2020-05-02] MEDS: prednisoLONE 1% Ophth Susp 5 ml Bottle L EYE SCH ×3 (08:58→20:52)
[2020-05-02] MEDS: Folic Acid/Vit B Comp W-C PO SCH (08:59)
[2020-05-02] MEDS: Ascorbic Acid 500 mg Chewable Tablet PO SCH (08:59)
[2020-05-02] MEDS: Aspirin 81 mg Enteric Coated Tablet PO SCH (08:59)
[2020-05-02] MEDS: Zinc Sulfate 220 MG CAP PO SCH (08:59)
[2020-05-02] MEDS: Heparin 5,000 UNITS/ML VIAL SC SCH ×2 (09:00→20:49)
[2020-05-02] MEDS: Senokot S 8.6-50 MG TAB PO SCH ×2 (09:00→20:50)
[2020-05-02] MEDS: NIFEdipine XL 60 MG TAB PO SCH (09:00)
[2020-05-02] MEDS: Polyethylene Glycol 3350 17 GM Packet PO SCH (09:00)
[2020-05-02] MEDS: NPH, Human Insulin Isophane 300 UNIT/3 ML VIAL SC SCH ×2 (09:01→20:51)
[2020-05-02] MEDS: cefTRIAXone\\ROCEPHIN 1 GM in Sodium Chloride 0.9% 100 ML IVPB SCH (15:24)
[2020-05-02] MEDS: Azithromycin 500 MG in Sodium Chloride 0.9% 250 ML 250 ML IVPB SCH (15:25)
[2020-05-02] MEDS ORDERED: Furosemide 40 MG/4 ML VIAL SLOW IVP SCH (17:15)
[2020-05-02] MEDS: NIFEdipine XL 30 MG TAB PO SCH (20:50)
[2020-05-02] MEDS: Simvastatin 5 MG TAB PO SCH (20:50)
[2020-05-02] MEDS: Saccharomyces boulardii 250 MG CAP PO SCH (20:50)
--- NOTE | 2020-05-02 21:00 | PDOC.HOSPP ---
- Subjective Encounter Date: 05/02/20 Encounter Time: 15:30 Subjective: Patient seen and examined for sepsis/pneumonia. Short of breath on [id number] exertion. Mild dry cough. Overall feeling better. No chest pain or palpitations - Objective Vital Signs & Weight: Vital Signs (12 hours) Temp Pulse Pulse Pulse Resp BP BP 05/02/20 18:58 82 16 05/02/20 18:57 82 16 05/02/20 15:35 97.7 F 80 16 05/02/20 14:32 78 16 05/02/20 11:50 98.2 F 84 16 05/02/20 10:20 80 16 05/02/20 09:45 93 81 140/83 155/64 H BP Pulse Ox 05/02/20 18:58 97 05/02/20 18:57 97 05/02/20 15:35 141/65 H 96 05/02/20 14:32 94 L 05/02/20 11:50 160/71 H 97 05/02/20 10:20 96 05/02/20 09:45 Weight Admit Weight 191 lb 11.2 oz Weight 203 lb 11.2 oz I&O: 05/01/20 05/02/20 05/03/20 06:59 06:59 06:59 Intake Total 1065 1150 Balance 1065 1150 Result Diagrams: 05/01/20 03:57 05/01/20 03:57 Additional Labs: Accuchecks 05/02/20 05/02/20 05/02/20 19:48 10:17 06:00 POC Glucose 237 H 243 H 178 H 05/01/20 20:52 POC Glucose 144 H Abnormal Lab Results - Last 48 hrs 05/01/20 03:57: Carbon Dioxide 21 L, BUN 48 H, Creatinine 2.71 H, AST 39 H, Serum Total Protein 5.9 L, Albumin 2.8 L, Albumin/Globulin Ratio 0.9 L 05/01/20 03:57: RBC 3.64 L, Hgb 10.6 L, Hct 33.2 L, Lymphocytes % 19.0 L, Monocytes % 10.2 H, Monocytes # 1.0 H Microbiology - Entire Visit 04/27/20 14:44 Venous blood - Right Arm Blood Culture - Final NO GROWTH IN 5 DAYS 04/28/20 08:20 Urine clean catch Urine Culture - Final 04/27/20 14:47 Venous blood - Left Hand Blood Culture - Final Coagulase Neg Staphylococcus EKG Reviewed by me: Yes (Sinus rhythm on telemetry) Hospitalist ROS - Review of Systems Cardiovascular: reports: edema. denies: chest pain, palpitations, orthopnea, paroxysmal noc. dyspnea, light headedness, other Gastrointestinal: denies: nausea, vomiting, abdominal pain, diarrhea, constipation, melena, hematochezia, other - Medication Medications: Active Medications Generic Name Dose Route Start Last Admin Trade Name Freq PRN Reason Stop Dose Admin Acetaminophen 650 mg 04/27/20 20:01 04/30/20 08:56 Acetaminophen 325 Mg Tab PO 650 mg Q4H PRN Administration Headache/Fever/Mild Pain (1-3) Albuterol Sulfate 2 puff 04/30/20 18:30 05/02/20 18:57 Proventil Inhaler 6.7 G (200 Inhalations) INH 2 puff [id number] PATRICK Administration Ascorbic Acid 1,000 mg 04/28/20 09:00 05/02/20 08:59 Ascorbic Acid 500 Mg Chewable Tablet PO 1,000 mg DAILY PATRICK Administration Aspirin 81 mg 04/30/20 09:00 05/02/20 08:59 Aspirin 81 Mg Enteric Coated Tablet PO 81 mg DAILY PATRICK Administration Guaifenesin 200 mg 04/27/20 20:01 05/02/20 00:46 Diabetic Tussin 200 Mg/10 Ml Udcup PO 200 mg Q4H PRN Administration Cough Heparin Sodium (Porcine) 5,000 units 04/28/20 21:00 05/02/20 09:00 Heparin 5,000 Units/Ml Vial SC 5,000 units Q12HR PATRICK Administration Hydralazine HCl 10 mg 04/27/20 20:01 04/29/20 17:50 Hydralazine 20 Mg/Ml Vial SLOW IVP 10 mg Q4H PRN Administration SBP > 180 and HR < 70 Ceftriaxone Sodium 1 gm/ 100 mls @ 200 mls/hr 04/28/20 15:00 05/02/20 15:24 Sodium Chloride IVPB 100 mls 1500 PATRICK Administration Azithromycin 500 mg/ Sodium 250 mls @ 250 mls/hr 04/28/20 16:00 05/02/20 15:25 Chloride IVPB 250 mls 1600 PATRICK Administration Insulin Human Lispro 0 units 04/27/20 20:01 04/30/20 20:51 Humalog 300 Units/3 Ml Vial SC 2 unit .BEDTIME SLIDING SC PRN Administration Bedtime Correctional Scale Insulin Human Lispro 0 units 04/29/20 09:28 05/02/20 17:35 Humalog 300 Units/3 Ml Vial SC 4 unit .MODERATE SLIDING SC PRN Administration Moderate Correctional Scale Insulin Human NPH 10 unit 04/29/20 21:00 05/02/20 09:01 Nph, Human Insulin Isophane 300 Unit/3 Ml Vial SC 10 unit BID PATRICK Administration Mometasone Furoate/Formoterol Fumar 2 puff 04/29/20 18:30 05/02/20 18:58 Mometasone 200 Mcg/Formoterol 5 Mcg 120 Puff Inhaler INH 2 puff BID-RT PATRICK Administration Nifedipine 60 mg 05/01/20 09:00 05/02/20 09:00 Nifedipine Xl 60 Mg Tab PO 60 mg DAILY PATRICK Administration Nifedipine 30 mg 04/30/20 21:00 05/01/20 21:19 Nifedipine Xl 30 Mg Tab PO 30 mg HS PATRICK Administration Pantoprazole Sodium 40 mg 04/28/20 09:00 05/02/20 09:00 Pantoprazole 40 Mg Tab PO 40 mg DAILY PATRICK Administration Polyethylene Glycol 17 gm 05/02/20 09:00 05/02/20 09:00 Polyethylene Glycol 3350 17 Gm Packet PO 17 gm DAILY PATRICK Administration Prednisolone Acetate 1 drop 04/27/20 21:00 05/02/20 15:24 Prednisolone 1% Ophth Susp 5 Ml Bottle L EYE 1 drp TID PATRICK Administration Saccharomyces Boulardii 250 mg 04/30/20 21:00 05/01/20 21:19 Saccharomyces Boulardii 250 Mg Cap PO 250 mg HS PATRICK Administration Senna/Docusate Sodium 2 tab 05/02/20 09:00 05/02/20 09:00 Senokot S 8.6-50 Mg Tab PO 2 tab BID PATRICK Administration Simvastatin 5 mg 04/27/20 21:00 05/01/20 21:19 Simvastatin 5 Mg Tab PO 5 mg HS PATRICK Administration Sodium Chloride 10 ml 05/01/20 21:00 05/02/20 09:12 Flush - Normal Saline 10 Ml Syringe IVF 10 ml Q12HR PATRICK Administration Vitamin B Complex/Vit C/Folic Acid 1 tab 04/28/20 09:00 05/02/20 08:59 Folic Acid/Vit B Comp W-C PO 1 tab DAILY PATRICK Administration Zinc Sulfate 220 mg 04/28/20 09:00 05/02/20 08:59 Zinc Sulfate 220 Mg Cap PO 220 mg DAILY PATRICK Administration - Exam General Appearance: ill appearing Neck: supple Heart: RRR, no gallops, no rubs Respiratory: no wheezes, rales, rhonchi, tachypneic Gastrointestinal: soft, non-tender, no guarding, no rigidity Extremities: 2+ LE edema Neurological: no new deficit Psychiatric: normal affect, A&O x 3 Hosp A/P - Plan DVT proph w/SCDs Patient is 69-year-old female with diabetes mellitus type 2, hypertension, hyperlipidemia and COPD presented to the hospital on 04/30 with 2 weeks history of cough, fever along with generalized malaise. Patient was placed on O2 supplementation in the emergency room. She was saturating 94% on 4 L. Chest x- ray was consistent with bilateral infiltrates. She was found to have elevated D-dimer at 0.97. Please refer to the history and physical for further details. Patient was admitted to the telemetry unit with above diagnosis. She was placed on O2 supplementation with nebulizer treatment and steroids which was later discontinued after negative Covid. Patient was seen by infectious disease Dr. Buchanan. Covid antibody tests came back negative. Influenza and urinary antigen for strep pneumo and Legionella has been negative. She was started on ceftriaxone and azithromycin on admission. Patient was found to have elevated troponin up to 0.624. Patient had a recent cardiac catheterization earlier this year that showed normal coronaries. Cardiology recommended no further work-up. Echocardiogram showed diastolic dysfunction. Patient was also found to have acute kidney injury that improved with mild IV hydration. Assessment: Acute hypoxic respiratory failure with Sepsis due to pneumoniasuspected gram- negative Covid antigen/antibody/influenza/strep pneumo antigen/Legionella antigen negative On ceftriaxone and azithromycin Infectious disease following Type II myocardial infarction present on admission Normal coronaries on cardiac catheterization in 01/29 Chronic diastolic heart failure Diabetes mellitus type 2 Urinary tract infection RICHELLE on CKD stage IV Hyperkalemiaresolved Elevated inflammatory markers Hypertension Hyperlipidemia Obesity with a BMI 38.6 Blood culture 1 of 2+ for coagulase-negative Staphylococcusprobably contamination Suspected obstructive sleep apneasleep study as outpatient is recommended Plan: Renal function improved. Patient is on 2 L nasal cannula. Home O2 cannot be arranged until pneumonia is resolved. Will administer 1 dose of Lasix. Recheck chest x-ray in a.m. Continue fluid restriction. Continue antibiotics for pneumonia. Continue current dose of NPH, Procardia XL and other medications as above. Home health care set up at discharge. Wean O2 as tolerated.
[2020-05-03] MEDS: PROVENTIL INHALER 6.7 G (200 INHALATIONS) INH SCH ×6 (02:24→22:49)
[2020-05-03 04:44] LABS: #Basophils 0.1 thou/uL (0.0-0.2); #Eosinphils 0.2 thou/uL (0.0-0.7); #Lymphocytes 1.7 thou/uL (1.20-3.40); #Monocytes 0.9 thou/uL (0.11-0.59); #Neutrophils 6.4 thou/uL (1.40-6.50); %Basophils 0.8 % (0.0-1.0); %Eosinophils 2.4 % (0.0-10.0); %Lymphocytes 18.3 % (21.0-51.0); %Monocytes 9.7 % (0.0-10.0); %Neutrophils 68.7 % (42.0-75.0); Hemoglobin 9.7 g/dL (12.0-16.0); Mean Corpuscular HGB CONC 31.5 g/dL (32.0-36.0); Mean Corpuscular Hemoglobin 28.8 pg (27.0-31.0); Mean Corpuscular Volume 91.4 fL (78.0-98.0); Mean Platelet Volume 8.7 fL (7.4-10.4); Platelet Count 222 thou/uL (130-400); RBC Distribution Width 12.6 % (11.5-14.5); Red Blood Cell (RBC) Count 3.37 mill/uL (4.20-5.40); White Blood Cell (WBC) Count 9.3 thou/uL (4.8-10.8)
[2020-05-03 05:09] LABS: Anion Gap 14 mmol/L (10-20); BUN (Urea Nitrogen) 44 mg/dL (9.8-20.1); Calc. Creatinine Clearance 28 mL/min (70-130); Calcium 8.1 mg/dL (7.8-10.44); Carbon Dioxide 25 mmol/L (23-31); Chloride 108 mmol/L (98-107); Glucose 134 mg/dL (80-115); Magnesium 2.6 mg/dL (1.6-2.6); Potassium 4.8 mmol/L (3.5-5.1); Sodium 142 mmol/L (136-145)
[2020-05-03] MEDS: Mometasone 200 MCG/Formoterol 5 MCG 120 PUFF INHALER INH SCH ×2 (07:02→19:11)
[2020-05-03] MEDS: Senokot S 8.6-50 MG TAB PO SCH ×2 (08:02→20:42)
[2020-05-03] MEDS: Folic Acid/Vit B Comp W-C PO SCH (08:03)
[2020-05-03] MEDS: NPH, Human Insulin Isophane 300 UNIT/3 ML VIAL SC SCH ×2 (08:03→20:43)
[2020-05-03] MEDS: NIFEdipine XL 60 MG TAB PO SCH (08:03)
[2020-05-03] MEDS: Heparin 5,000 UNITS/ML VIAL SC SCH ×2 (08:03→21:28)
[2020-05-03] MEDS: Aspirin 81 mg Enteric Coated Tablet PO SCH (08:03)
[2020-05-03] MEDS: Polyethylene Glycol 3350 17 GM Packet PO SCH (08:04)
--- NOTE | 2020-05-03 08:08 | RAD ---
Chest 2 views HISTORY: Dyspnea. COMPARISON: 04/27/2020. FINDINGS: Cardiac silhouette is within normal limits. Pulmonary vasculature remains engorged. Patchy infiltrate throughout the right lung is less dense than on the prior exam. Infiltrate at the left lung base, obscuring left hemidiaphragm, and blunting of the costophrenic angles has progressed. No e vidence of pneumothorax. IMPRESSION : Patchy right lung infiltrate has improved. Pleural fluid and left basilar infiltrate have progressed, possibly related to pulmonary vascular con gestion/edema.
[2020-05-03] MEDS: prednisoLONE 1% Ophth Susp 5 ml Bottle L EYE SCH ×3 (11:01→20:46)
[2020-05-03] MEDS: Furosemide 40 MG/4 ML VIAL SLOW IVP SCH ×2 (11:01→15:14)
[2020-05-03] MEDS: cefTRIAXone\\ROCEPHIN 1 GM in Sodium Chloride 0.9% 100 ML IVPB SCH (15:15)
[2020-05-03] MEDS: Azithromycin 500 MG in Sodium Chloride 0.9% 250 ML 250 ML IVPB SCH (16:51)
[2020-05-03] MEDS: HumaLOG 300 UNITS/3 ML VIAL SC PRN ×2 (18:04→20:45)
[2020-05-03] MEDS: NIFEdipine XL 30 MG TAB PO SCH (20:42)
[2020-05-03] MEDS: Simvastatin 5 MG TAB PO SCH (20:42)
[2020-05-03] MEDS: Saccharomyces boulardii 250 MG CAP PO SCH (20:42)
--- NOTE | 2020-05-03 23:45 | PDOC.HOSPP ---
- Subjective Encounter Date: 05/03/20 Encounter Time: 16:00 Subjective: Patient seen and examined for pneumonia/respiratory failure. Short of breath on exertion. O2 sats dropping in 80s on ambulation. Mild dry cough. - Objective Vital Signs & Weight: Vital Signs (12 hours) Temp Pulse Pulse Pulse Resp BP BP 05/03/20 23:35 77 05/03/20 20:42 83 05/03/20 15:40 98.3 F 74 18 05/03/20 12:37 77 77 167/71 H 146/85 H BP Pulse Ox Pulse Ox Pulse Ox 05/03/20 23:35 151/69 H 05/03/20 20:42 05/03/20 15:40 143/67 H 93 L 05/03/20 12:37 94 L 97 Weight Admit Weight 191 lb 11.2 oz Weight 204 lb 14.4 oz I&O: 05/02/20 05/03/20 05/04/20 06:59 06:59 06:59 Intake Total 7669 570 7727 Balance 5046 610 0682 Result Diagrams: 05/03/20 04:11 05/03/20 04:11 Additional Labs: Accuchecks 05/03/20 05/03/20 05/03/20 20:28 16:41 10:43 POC Glucose 202 H 209 H 211 H 05/03/20 05/02/20 05:48 16:42 POC Glucose 134 H 214 H Abnormal Lab Results - Last 48 hrs 05/03/20 04:11: Chloride 108 H, BUN 44 H, Creatinine 2.75 H 05/03/20 04:11: RBC 3.37 L, Hgb 9.7 L, Hct 30.8 L, MCHC 31.5 L, Lymphocytes % 18.3 L, Monocytes # 0.9 H Microbiology - Entire Visit 04/27/20 14:44 Venous blood - Right Arm Blood Culture - Final NO GROWTH IN 5 DAYS 04/28/20 08:20 Urine clean catch Urine Culture - Final 04/27/20 14:47 Venous blood - Left Hand Blood Culture - Final Coagulase Neg Staphylococcus EKG Reviewed by me: Yes (Sinus rhythm on telemetry) Hospitalist ROS - Review of Systems Cardiovascular: denies: chest pain, palpitations, orthopnea, paroxysmal noc. dyspnea, edema, light headedness, other Gastrointestinal: denies: nausea, vomiting, abdominal pain, diarrhea, constipation, melena, hematochezia, other - Medication Medications: Active Medications Generic Name Dose Route Start Last Admin Trade Name Elieq PRN Reason Stop Dose Admin Acetaminophen 650 mg 04/27/20 20:01 04/30/20 08:56 Acetaminophen 325 Mg Tab PO 650 mg Q4H PRN Administration Headache/Fever/Mild Pain (1-3) Albuterol Sulfate 2 puff 04/30/20 18:30 05/03/20 22:49 Proventil Inhaler 6.7 G (200 Inhalations) INH 2 puff [id number] PATRICK Administration Aspirin 81 mg 04/30/20 09:00 05/03/20 08:03 Aspirin 81 Mg Enteric Coated Tablet PO 81 mg DAILY PATRICK Administration Furosemide 40 mg 05/03/20 10:00 05/03/20 15:14 Furosemide 40 Mg/4 Ml Vial SLOW IVP 40 mg 1000,1600 PATRICK Administration Guaifenesin 200 mg 04/27/20 20:01 05/02/20 00:46 Diabetic Tussin 200 Mg/10 Ml Udcup PO 200 mg Q4H PRN Administration Cough Heparin Sodium (Porcine) 5,000 units 04/28/20 21:00 05/03/20 21:28 Heparin 5,000 Units/Ml Vial SC Not Given Q12HR PATRICK Hydralazine HCl 10 mg 04/27/20 20:01 04/29/20 17:50 Hydralazine 20 Mg/Ml Vial SLOW IVP 10 mg Q4H PRN Administration SBP > 180 and HR < 70 Ceftriaxone Sodium 1 gm/ 100 mls @ 200 mls/hr 04/28/20 15:00 05/03/20 15:15 Sodium Chloride IVPB 100 mls 1500 PATRICK Administration Azithromycin 500 mg/ Sodium 250 mls @ 250 mls/hr 04/28/20 16:00 05/03/20 16:51 Chloride IVPB 250 mls 1600 PATRICK Administration Insulin Human Lispro 0 units 04/27/20 20:01 05/03/20 20:45 Humalog 300 Units/3 Ml Vial SC 2 unit .BEDTIME SLIDING SC PRN Administration Bedtime Correctional Scale Insulin Human Lispro 0 units 04/29/20 09:28 05/03/20 18:04 Humalog 300 Units/3 Ml Vial SC 4 unit .MODERATE SLIDING SC PRN Administration Moderate Correctional Scale Insulin Human NPH 10 unit 04/29/20 21:00 05/03/20 20:43 Nph, Human Insulin Isophane 300 Unit/3 Ml Vial SC 10 unit BID PATRICK Administration Mometasone Furoate/Formoterol Fumar 2 puff 04/29/20 18:30 05/03/20 19:11 Mometasone 200 Mcg/Formoterol 5 Mcg 120 Puff Inhaler INH 2 puff BID-RT PATRICK Administration Nifedipine 60 mg 05/01/20 09:00 05/03/20 08:03 Nifedipine Xl 60 Mg Tab PO 60 mg DAILY PATRICK Administration Nifedipine 30 mg 04/30/20 21:00 05/03/20 20:42 Nifedipine Xl 30 Mg Tab PO 30 mg HS PATRICK Administration Pantoprazole Sodium 40 mg 04/28/20 09:00 05/03/20 08:03 Pantoprazole 40 Mg Tab PO 40 mg DAILY PATRICK Administration Polyethylene Glycol 17 gm 05/02/20 09:00 05/03/20 08:04 Polyethylene Glycol 3350 17 Gm Packet PO 17 gm DAILY PATRICK Administration Prednisolone Acetate 1 drop 04/27/20 21:00 05/03/20 20:46 Prednisolone 1% Ophth Susp 5 Ml Bottle L EYE 1 drp TID PATRICK Administration Saccharomyces Boulardii 250 mg 04/30/20 21:00 05/03/20 20:42 Saccharomyces Boulardii 250 Mg Cap PO 250 mg HS PATRICK Administration Senna/Docusate Sodium 2 tab 05/02/20 09:00 05/03/20 20:42 Senokot S 8.6-50 Mg Tab PO 2 tab BID PATRICK Administration Simvastatin 5 mg 04/27/20 21:00 05/03/20 20:42 Simvastatin 5 Mg Tab PO 5 mg HS PATRICK Administration Sodium Chloride 10 ml 05/01/20 21:00 05/03/20 21:29 Flush - Normal Saline 10 Ml Syringe IVF Not Given Q12HR PATRICK Vitamin B Complex/Vit C/Folic Acid 1 tab 04/28/20 09:00 05/03/20 08:03 Folic Acid/Vit B Comp W-C PO 1 tab DAILY PATRICK Administration - Exam General Appearance: NAD Neck: supple, no JVD Respiratory: no wheezes, rales, rhonchi, tachypneic (On ambulation) Gastrointestinal: soft, non-tender, normal bowel sounds Extremities: no cyanosis Hosp A/P - Plan DVT proph w/SCDs Patient is 69-year-old female with diabetes mellitus type 2, hypertension, hyperlipidemia and COPD presented to the hospital on 04/30 with 2 weeks history of cough, fever along with generalized malaise. Patient was placed on O2 supplementation in the emergency room. She was saturating 94% on 4 L. Chest x- ray was consistent with bilateral infiltrates. She was found to have elevated D-dimer at 0.97. Please refer to the history and physical for further details. Patient was admitted to the telemetry unit with above diagnosis. She was placed on O2 supplementation with nebulizer treatment and steroids which was later discontinued after negative Covid. Patient was seen by infectious disease Dr. Buchanan. Covid antibody tests came back negative. Influenza and urinary antigen for strep pneumo and Legionella has been negative. She was started on ceftriaxone and azithromycin on admission. Patient was found to have elevated troponin up to 0.624. Patient had a recent cardiac catheterization earlier this year that showed normal coronaries. Cardiology recommended no further work-up. Echocardiogram showed diastolic dysfunction. Patient was also found to have acute kidney injury that improved with mild IV hydration. Assessment: Acute hypoxic respiratory failure with Sepsis due to pneumoniasuspected gram- negative Covid antigen/antibody/influenza/strep pneumo antigen/Legionella antigen negative Infectious disease following Type II myocardial infarction present on admission Normal coronaries on cardiac catheterization in 01/29 Chronic diastolic heart failure Diabetes mellitus type 2 Urinary tract infection RICHELLE on CKD stage IV Hyperkalemiaresolved Elevated inflammatory markers Hypertension Hyperlipidemia Obesity with a BMI 38.6 Blood culture 1 of 2+ for coagulase-negative Staphylococcusprobably contamination Suspected obstructive sleep apneasleep study as outpatient is recommended Plan: Start IV Lasix. Monitor renal function closely continue fluid restriction. Chest x-ray today was consistent with volume overload with improving pneumonia. Arrange for home oxygen. Change antibiotics to po. Continue Procardia XL, current dose of NPH and other medications as above. DC planning.
[2020-05-04] MEDS: PROVENTIL INHALER 6.7 G (200 INHALATIONS) INH SCH ×4 (02:49→14:41)
[2020-05-04 04:58] LABS: #Basophils 0.1 thou/uL (0.0-0.2); #Eosinphils 0.3 thou/uL (0.0-0.7); #Lymphocytes 2.2 thou/uL (1.20-3.40); #Monocytes 0.8 thou/uL (0.11-0.59); #Neutrophils 5.9 thou/uL (1.40-6.50); %Basophils 0.9 % (0.0-1.0); %Eosinophils 3.1 % (0.0-10.0); %Lymphocytes 23.4 % (21.0-51.0); %Neutrophils 63.5 % (42.0-75.0); Hemoglobin 10.3 g/dL (12.0-16.0); Mean Corpuscular HGB CONC 32.3 g/dL (32.0-36.0); Mean Corpuscular Hemoglobin 29.5 pg (27.0-31.0); Mean Corpuscular Volume 91.3 fL (78.0-98.0); Mean Platelet Volume 8.9 fL (7.4-10.4); Platelet Count 213 thou/uL (130-400); RBC Distribution Width 12.6 % (11.5-14.5); Red Blood Cell (RBC) Count 3.49 mill/uL (4.20-5.40); White Blood Cell (WBC) Count 9.3 thou/uL (4.8-10.8)
[2020-05-04 05:45] LABS: Calcium 8.1 mg/dL (7.8-10.44); Chloride 108 mmol/L (98-107); Potassium 4.7 mmol/L (3.5-5.1); Sodium 143 mmol/L (136-145)
[2020-05-04 05:46] LABS: Glucose 107 mg/dL (80-115)
[2020-05-04 05:47] LABS: Anion Gap 16 mmol/L (10-20); Carbon Dioxide 24 mmol/L (23-31)
[2020-05-04 05:49] LABS: Calc. Creatinine Clearance 28 mL/min (70-130)
[2020-05-04 05:50] LABS: BUN (Urea Nitrogen) 40 mg/dL (9.8-20.1)
[2020-05-04 05:51] LABS: Magnesium 2.4 mg/dL (1.6-2.6)
[2020-05-04] MEDS: Mometasone 200 MCG/Formoterol 5 MCG 120 PUFF INHALER INH SCH (07:12)
[2020-05-04] MEDS: Aspirin 81 mg Enteric Coated Tablet PO SCH (08:58)
[2020-05-04] MEDS: NIFEdipine XL 60 MG TAB PO SCH (08:58)
[2020-05-04] MEDS: Folic Acid/Vit B Comp W-C PO SCH (08:58)
[2020-05-04] MEDS: Polyethylene Glycol 3350 17 GM Packet PO SCH (08:59)
[2020-05-04] MEDS: prednisoLONE 1% Ophth Susp 5 ml Bottle L EYE SCH ×2 (08:59→16:47)
[2020-05-04] MEDS: NPH, Human Insulin Isophane 300 UNIT/3 ML VIAL SC SCH (08:59)
[2020-05-04] MEDS: Heparin 5,000 UNITS/ML VIAL SC SCH (08:59)
[2020-05-04] MEDS ORDERED: Cefdinir 300 MG CAP PO SCH (09:00)
[2020-05-04] MEDS: Furosemide 40 MG/4 ML VIAL SLOW IVP SCH (09:00)
[2020-05-04] MEDS: Senokot S 8.6-50 MG TAB PO SCH (09:00)
[2020-05-04 12:14] VITALS: BP 188/76; TEMP 97.6
--- NOTE | 2020-05-04 20:05 | PDOC.DS.DS ---
Provider - Provider Date of Admission: 04/27/20 15:57 Date of Discharge: 05/04/20 Admitting Provider: Steve Jacobson DO Consultations: Cardiology, Infectious Disease Primary Care Physician: [facility] Course - Hospital Course Hospital Course: Patient is 69-year-old female with diabetes mellitus type 2, hypertension, hyperlipidemia and COPD presented to the hospital on 04/30 with 2 weeks history of cough, fever along with generalized malaise. Patient was placed on O2 supplementation in the emergency room. She was saturating 94% on 4 L. Chest x- ray was consistent with bilateral infiltrates. She was found to have elevated D-dimer at 0.97. Please refer to the history and physical for further details. Patient was admitted to the telemetry unit with above diagnosis. She was placed on O2 supplementation with nebulizer treatment and steroids which was later discontinued after negative Covid. Patient was seen by infectious disease Dr. Buchanan. Covid antibody tests came back negative. Influenza and urinary antigen for strep pneumo and Legionella has been negative. She was started on ceftriaxone and azithromycin on admission. Patient was found to have elevated troponin up to 0.624. Patient had a recent cardiac catheterization earlier this year that showed normal coronaries. Cardiology recommended no further work-up. Echocardiogram showed diastolic dysfunction. Patient was also found to have acute kidney injury that improved with mild IV hydration. Final diagnosis: Acute hypoxic respiratory failure with Sepsis due to pneumoniasuspected gram- negative Covid antigen/antibody/influenza/strep pneumo antigen/Legionella antigen negative Infectious disease following Type II myocardial infarction present on admission Normal coronaries on cardiac catheterization in 01/29 Chronic diastolic heart failure Diabetes mellitus type 2 Urinary tract infection RICHELLE on CKD stage IV Hyperkalemiaresolved Elevated inflammatory markers Hypertension Hyperlipidemia Obesity with a BMI 38.6 Blood culture 1 of 2+ for coagulase-negative Staphylococcusprobably contamination Suspected obstructive sleep apneasleep study as outpatient is recommended Chronic hypoxic respiratory failurehome oxygen has been arranged for a short duration Resuscitation Status: 04/27/20 16:39 Resuscitation Status Routine Resuscitation Status: FULL: Full Resuscitation - Labs Lab Results: 05/04/20 04:14 05/04/20 04:14 Abnormal Lab Results - Last 48 hrs 05/03/20 04:11: Chloride 108 H, BUN 44 H, Creatinine 2.75 H 05/03/20 04:11: RBC 3.37 L, Hgb 9.7 L, Hct 30.8 L, MCHC 31.5 L, Lymphocytes % 18.3 L, Monocytes # 0.9 H 05/04/20 04:14: Chloride 108 H, BUN 40 H, Creatinine 2.75 H 05/04/20 04:14: RBC 3.49 L, Hgb 10.3 L, Hct 31.9 L, Monocytes # 0.8 H Microbiology - Entire Visit 04/27/20 14:44 Venous blood - Right Arm Blood Culture - Final NO GROWTH IN 5 DAYS 04/28/20 08:20 Urine clean catch Urine Culture - Final 04/27/20 14:47 Venous blood - Left Hand Blood Culture - Final Coagulase Neg Staphylococcus - Physical Exam Vitals: Vital Signs (12 hours) Temp Pulse Pulse Pulse BP BP BP 05/04/20 12:06 97.6 F 77 188/76 H 05/04/20 09:36 84 79 157/68 H 146/71 H 05/04/20 09:05 Pulse Ox Pulse Ox Pulse Ox 05/04/20 12:06 98 05/04/20 09:36 96 99 05/04/20 09:05 94 L Weight Admit Weight 191 lb 11.2 oz Weight 202 lb Physical Exam: The patient was seen and examined on the day of discharge. Plan - Discharge Medications Prescriptions: Doxycycline Hyclate 100 mg PO Q12HR #8 tablet Saccharomyces boulardii [Florastor] 250 mg PO HS #30 cap Cefdinir [Omnicef] 300 mg PO DAILY #4 cap Albuterol Sulfate HFA (OR) [Proventil Hfa (or)] 2 puff INH Q4H #1 inh Home Medications: Medication Instructions Recorded Confirmed Type Insulin NPL/Insulin Lispr [HumaLOG 40 units SQ QPM 10/07/17 04/27/20 History Mix 75/25 Vial] Insulin NPL/Insulin Lispr [HumaLOG 70 units SQ QAM 10/07/17 04/27/20 History Mix 75/25 Vial] Omeprazole 40 mg PO DAILY 10/07/17 04/27/20 History Simvastatin 5 mg PO HS 10/07/17 04/27/20 History Furosemide 1 tab PO DAILY 01/23/20 04/27/20 History Prednisolone Acetate/Pf 1 drop L EYE TID 01/23/20 04/27/20 History [Prednisolone Acet 1% Eye Drop] NIFEdipine [Procardia XL] 30 mg PO BID 30 Days #60 tab 01/25/20 04/27/20 Rx Albuterol Sulfate HFA (OR) 2 puff INH Q4H #1 inh 05/03/20 Rx [Proventil Hfa (or)] Cefdinir [Omnicef] 300 mg PO DAILY #4 cap 05/04/20 Rx Doxycycline Hyclate 100 mg PO Q12HR #8 tablet 05/04/20 Rx Saccharomyces boulardii [Florastor] 250 mg PO HS #30 cap 05/04/20 Rx Allergies: atorvastatin [From Lipitor] Allergy (Verified 04/28/20 02:05) ibuprofen [From Advil] Allergy (Verified 04/28/20 02:05) - Discharge Instructions Nourishment:: Fluid Restriction Diet (2 lit/day) - Follow up Plan Referrals: Cardiac Rehab - [facility] [Outside] - 7 Days (Your doctor has ordered outpatient cardiac rehab for you to begin within 1-2 weeks after you go home from the hospital. The location nearest to you is the [facility]. We will call you in 3-5 days to get you scheduled for your evaluation. If you do not receive a call, please reach out to us at [phone] and request an appointment.) [facility] [Outside] (HOME OXYGEN.) [facility] [Outside] (Nursing with physical therapy services.) [facility] [Primary Care Provider] - 3 Days (Call and schedule a hospital follow up appointment within 7 days. ) Mikhail Martinez MD [Active] - 05/24/20 3:00 pm (Follow up with your commissioned defence force officer on 05/24 at 3 pm ) Disposition: HOME Quality - Care Measures CORE MEASURES:: N/A
== END 2020-05-04 16:40 | disposition home or self-care (01) | DRG 871 ==
LOC: ERS 13:41 → 2NO 15:57 → 2SW 04-28 02:03 → 2NO 04-30 17:04
PROVIDERS: ADMIT Family Medicine; ATTEND Internal Medicine
PROC: 8E0ZXY6 Isolation (ICD-10-PCS; principal; 2020-04-27)
DX: A41.50 Gram-negative sepsis, unspecified (principal); J15.6 Pneumonia due to other Gram-negative bacteria; I21.A1 Myocardial infarction type 2; J96.01 Acute respiratory failure with hypoxia; N18.4 Chronic kidney disease, stage 4 (severe); N39.0 Urinary tract infection, site not specified; N17.9 Acute kidney failure, unspecified; I13.0 Hypertensive heart and chronic kidney disease with heart failure and stage 1 through stage 4 chronic kidney disease, or unspecified chronic kidney disease; I50.32 Chronic diastolic (congestive) heart failure; G89.29 Other chronic pain; R65.20 Severe sepsis without septic shock; M19.90 Unspecified osteoarthritis, unspecified site; E78.5 Hyperlipidemia, unspecified; F41.9 Anxiety disorder, unspecified; F32.9 Major depressive disorder, single episode, unspecified; E11.22 Type 2 diabetes mellitus with diabetic chronic kidney disease; J44.9 Chronic obstructive pulmonary disease, unspecified; E87.5 Hyperkalemia; G47.33 Obstructive sleep apnea (adult) (pediatric); E66.9 Obesity, unspecified; E78.00 Pure hypercholesterolemia, unspecified; E11.649 Type 2 diabetes mellitus with hypoglycemia without coma; Z79.4 Long term (current) use of insulin; Z88.8 Allergy status to other drugs, medicaments and biological substances; Z68.38 Body mass index [BMI] 38.0-38.9, adult
CPT/HCPCS: 0240U; 36415; 36416; 71045; 71046; 80048; 80053; 81001; 82553; 82728; 83605; 83615; 83735; 84100; 84484; 85025; 85379; 85520; 85610; 85730; 86140; 86769; 87040; 87086; 87149; 87449; 87899; 90471; 90662; 93005; 93306; 93798; 96365; 96372; 96374; 96375; G0008; J0360; J0456; J0696; J1100; J1644; J1650; J1815; J1940; J3490; J7050

== ENCOUNTER 2020-07-21 19:30 | Outpatient (CLI) | payer MEDICARE, MEDICAID | END 2020-07-21 19:31 | disposition home or self-care (01) | LOC: SLEEPLAB 19:30 | PROVIDERS: ATTEND Internal Medicine Critical Care Medicine | DX: G47.33 Obstructive sleep apnea (adult) (pediatric) (principal); R06.83 Snoring; G47.00 Insomnia, unspecified; G47.10 Hypersomnia, unspecified; E66.9 Obesity, unspecified; Z68.36 Body mass index [BMI] 36.0-36.9, adult | CPT/HCPCS: 95811 ==

== ENCOUNTER 2020-12-06 19:32 | Inpatient (IN) | payer MEDICARE, MEDICAID ==
[2020-12-06 20:53] LABS: #Eosinphils 0.1 thou/uL (0.0-0.7); #Lymphocytes 1.6 thou/uL (1.20-3.40); #Monocytes 0.8 thou/uL (0.11-0.59); #Neutrophils 6.9 thou/uL (1.40-6.50); %Basophils 0.4 % (0.0-1.0); %Eosinophils 0.6 % (0.0-10.0); %Monocytes 8.4 % (0.0-10.0); %Neutrophils 73.6 % (42.0-75.0); Hemoglobin 10.3 g/dL (12.0-16.0); Mean Corpuscular HGB CONC 33.5 g/dL (32.0-36.0); Mean Corpuscular Volume 89.4 fL (78.0-98.0); Mean Platelet Volume 9.3 fL (7.4-10.4); Platelet Count 147 thou/uL (130-400); RBC Distribution Width 12.6 % (11.5-14.5); Red Blood Cell (RBC) Count 3.45 mill/uL (4.20-5.40); White Blood Cell (WBC) Count 9.3 thou/uL (4.8-10.8)
[2020-12-06 21:16] LABS: ALT (SGPT) 15 U/L (8-55); AST (SGOT) 26 U/L (5-34); Albumin 3.3 g/dL (3.4-4.8); Alkaline Phosphatase 131 U/L (40-110); Anion Gap 12 mmol/L (10-20); BUN (Urea Nitrogen) 43 mg/dL (9.8-20.1); Bilirubin, Total 0.3 mg/dL (0.2-1.2); Calc. Creatinine Clearance 0 mL/min (70-130); Calcium 8.1 mg/dL (7.8-10.44); Carbon Dioxide 23 mmol/L (23-31); Chloride 105 mmol/L (98-107); Globulin 2.4 g/dL (2.4-3.5); Glucose 239 mg/dL (83-110); Potassium 4.6 mmol/L (3.5-5.1); Protein, Total 5.7 g/dL (5.8-8.1); Sodium 135 mmol/L (136-145)
[2020-12-06 21:33] LABS: SARS-CoV-2 NAA Rapid Test Not Detected (NotDetected)
[2020-12-06] MEDS ORDERED: Nitroglycerin 2% Ointment 1 INCH/1 GM Packet ONE (22:22)
[2020-12-06] MEDS ORDERED: Furosemide 40 MG/4 ML VIAL ONE (22:22)
[2020-12-06] MEDS ORDERED: methylPREDNISolone Sod Succ/PF 125 MG/2 ML VIAL ONE (22:52)
[2020-12-06 23:33] LABS: Troponin I 0.026 ng/mL (< 0.028)
[2020-12-06] MEDS ORDERED: Dextrose 5% in Water 1,000 ML IV PRN (23:52)
[2020-12-06] MEDS ORDERED: Dextrose 50% Abboject 50 ML SYRINGE SLOW IVP PRN (23:52)
[2020-12-07] MEDS: Ondansetron PF 4 MG/2 ML Vial IVP PRN (00:37)
[2020-12-07] MEDS: Acetaminophen 325 MG TAB PO PRN ×2 (00:37→20:24)
[2020-12-07] MEDS ORDERED: Pantoprazole 40 MG VIAL IVP SCH (00:45)
[2020-12-07] MEDS ORDERED: hydrALAZINE 20 MG/ML VIAL SLOW IVP SCH (01:00)
[2020-12-07] MEDS ORDERED: Cefepime 1 GM in Sodium Chloride 0.9% 100 ML IVPB SCH (01:00)
[2020-12-07 02:53] LABS: #Eosinphils 0.1 thou/uL (0.0-0.7); #Lymphocytes 0.6 thou/uL (1.20-3.40); #Monocytes 0.2 thou/uL (0.11-0.59); #Neutrophils 9.7 thou/uL (1.40-6.50); %Basophils 0.4 % (0.0-1.0); %Eosinophils 1.2 % (0.0-10.0); %Lymphocytes 5.9 % (21.0-51.0); %Monocytes 2.2 % (0.0-10.0); %Neutrophils 90.4 % (42.0-75.0); Hemoglobin 10.6 g/dL (12.0-16.0); Mean Corpuscular HGB CONC 33.5 g/dL (32.0-36.0); Mean Corpuscular Hemoglobin 30.1 pg (27.0-31.0); Mean Corpuscular Volume 89.8 fL (78.0-98.0); Mean Platelet Volume 9.2 fL (7.4-10.4); Platelet Count 145 thou/uL (130-400); RBC Distribution Width 12.6 % (11.5-14.5); Red Blood Cell (RBC) Count 3.53 mill/uL (4.20-5.40); White Blood Cell (WBC) Count 10.8 thou/uL (4.8-10.8)
[2020-12-07 03:13] LABS: Anion Gap 12 mmol/L (10-20); BUN (Urea Nitrogen) 46 mg/dL (9.8-20.1); Calc. Creatinine Clearance 21 mL/min (70-130); Calcium 8.7 mg/dL (7.8-10.44); Carbon Dioxide 23 mmol/L (23-31); Chloride 103 mmol/L (98-107); Glucose 198 mg/dL (83-110); Potassium 4.7 mmol/L (3.5-5.1); Sodium 133 mmol/L (136-145)
[2020-12-07 03:18] LABS: Troponin I 0.031 ng/mL (< 0.028)
[2020-12-07 05:11] LABS: Bacteria/HPF 3+ HPF (None Seen); Bilirubin Negative (Negative); Blood, Urine 2+ (Negative); Clarity Turbid (Clear); Glucose, Urine (Dipstick) 100 mg/dL (Negative); Ketone, Urine Negative (Negative); Leukocyte 250 Leu/uL (Negative); Nitrite 1+ (Negative); Protein, Urine (Dipstick) 300 mg/dL (Neg-Trace); Specific Gravity, Urine 1.013 (1.002-1.036); Squamous Epithelial 0-3 HPF (0-3); Urobilinogen Normal mg/dL (Less than 2); WBC/HPF Greater than 50 HPF (0-3); pH, Urine 7.5 (5.0-9.0)
[2020-12-07 05:20] LABS: Urine Culture Reflex Yes Yes
[2020-12-07] MEDS: HumaLOG 300 UNITS/3 ML VIAL SC PRN ×4 (05:57→20:25)
[2020-12-07] MEDS: methylPREDNISolone Sod Succ 40 MG VIAL IVP SCH ×4 (05:58→23:34)
[2020-12-07] MEDS ORDERED: Furosemide 20 MG/2 ML VIAL SLOW IVP SCH (06:00)
[2020-12-07 06:17] LABS: Troponin I 0.039 ng/mL (< 0.028)
[2020-12-07] MEDS: hydrALAZINE 20 MG/ML VIAL SLOW IVP PRN ×2 (06:23→20:25)
[2020-12-07] MEDS: Mometasone 100 MCG/Formoterol 5 MCG 120 PUFF INHALER INH SCH ×2 (07:12→20:00)
[2020-12-07] MEDS: guaiFENesin ER 600 MG TAB PO SCH ×2 (10:17→20:25)
[2020-12-07] MEDS: Enoxaparin Sodium 30 MG/0.3 ML SYRINGE SC SCH (10:17)
[2020-12-07] MEDS: NIFEdipine XL 30 MG TAB PO SCH ×2 (10:18→20:23)
[2020-12-07] MEDS ORDERED: Furosemide 40 MG/4 ML VIAL SLOW IVP SCH (14:00)
[2020-12-07] MEDS ORDERED: guaiFENesin/Codeine 200 mg/20 mg 10 ml Cup PO SCH (14:00)
[2020-12-07] MEDS: cefTRIAXone\\ROCEPHIN 1 GM in Sodium Chloride 0.9% 100 ML IVPB SCH (15:03)
[2020-12-07] MEDS ORDERED: Guaifenesin DM 100-10/5 ML UDCUP PO PRN (15:37)
[2020-12-07] MEDS ORDERED: diphenhydrAMINE 30 GM TUBE TOP PRN (15:40)
[2020-12-07] MEDS ORDERED: diphenhydrAMINE 25 MG CAP PO PRN (15:40)
[2020-12-07] MEDS: Pantoprazole 40 MG VIAL IVP SCH (20:40)
[2020-12-07] MEDS ORDERED: Lantus 1000 UNITS/10 ML VIAL SC SCH (21:00)
[2020-12-08 05:00] LABS: #Eosinphils 0.1 thou/uL (0.0-0.7); #Lymphocytes 0.6 thou/uL (1.20-3.40); #Monocytes 0.8 thou/uL (0.11-0.59); %Basophils 0.1 % (0.0-1.0); %Lymphocytes 3.9 % (21.0-51.0); %Monocytes 5.2 % (0.0-10.0); %Neutrophils 89.9 % (42.0-75.0); Hemoglobin 9.7 g/dL (12.0-16.0); Mean Corpuscular HGB CONC 32.9 g/dL (32.0-36.0); Mean Corpuscular Hemoglobin 29.7 pg (27.0-31.0); Mean Corpuscular Volume 90.2 fL (78.0-98.0); Mean Platelet Volume 9.4 fL (7.4-10.4); Platelet Count 169 thou/uL (130-400); RBC Distribution Width 12.7 % (11.5-14.5); Red Blood Cell (RBC) Count 3.27 mill/uL (4.20-5.40); White Blood Cell (WBC) Count 14.4 thou/uL (4.8-10.8)
[2020-12-08 05:21] LABS: Anion Gap 15 mmol/L (10-20); BUN (Urea Nitrogen) 61 mg/dL (9.8-20.1); Calc. Creatinine Clearance 16 mL/min (70-130); Calcium 8.3 mg/dL (7.8-10.44); Carbon Dioxide 21 mmol/L (23-31); Chloride 101 mmol/L (98-107); Glucose 334 mg/dL (83-110); Potassium 4.8 mmol/L (3.5-5.1); Sodium 132 mmol/L (136-145)
[2020-12-08] MEDS: methylPREDNISolone Sod Succ 40 MG VIAL IVP SCH ×3 (05:46→17:53)
[2020-12-08] MEDS: HumaLOG 300 UNITS/3 ML VIAL SC PRN ×4 (05:47→19:52)
[2020-12-08] MEDS ORDERED: Furosemide 40 MG/4 ML VIAL SLOW IVP SCH (06:00)
[2020-12-08] MEDS: Mometasone 100 MCG/Formoterol 5 MCG 120 PUFF INHALER INH SCH ×2 (07:12→18:23)
[2020-12-08] MEDS: Acetaminophen 325 MG TAB PO PRN ×2 (09:37→19:51)
[2020-12-08] MEDS: NIFEdipine XL 30 MG TAB PO SCH ×2 (09:38→19:53)
[2020-12-08] MEDS: Azithromycin 250 MG TAB PO SCH (09:38)
[2020-12-08] MEDS: Enoxaparin Sodium 30 MG/0.3 ML SYRINGE SC SCH (09:38)
[2020-12-08] MEDS: guaiFENesin ER 600 MG TAB PO SCH ×2 (09:39→19:51)
[2020-12-08] MEDS: cefTRIAXone\\ROCEPHIN 1 GM in Sodium Chloride 0.9% 100 ML IVPB SCH (13:31)
[2020-12-08] MEDS: Benzonatate 100 MG CAP PO PRN (17:53)
[2020-12-08] MEDS: Pantoprazole 40 MG VIAL IVP SCH (19:53)
[2020-12-08] MEDS ORDERED: Lantus 1000 UNITS/10 ML VIAL SC SCH (21:00)
[2020-12-09] MEDS: HumaLOG 300 UNITS/3 ML VIAL SC PRN ×4 (06:05→20:56)
[2020-12-09] MEDS: Mometasone 100 MCG/Formoterol 5 MCG 120 PUFF INHALER INH SCH ×2 (07:02→18:40)
[2020-12-09] MEDS ORDERED: predniSONE 20 MG TAB PO SCH (08:00)
[2020-12-09] MEDS: Enoxaparin Sodium 30 MG/0.3 ML SYRINGE SC SCH (08:42)
[2020-12-09] MEDS: Azithromycin 250 MG TAB PO SCH (08:43)
[2020-12-09] MEDS: guaiFENesin ER 600 MG TAB PO SCH ×2 (08:43→20:53)
[2020-12-09] MEDS: NIFEdipine XL 30 MG TAB PO SCH ×2 (08:43→20:54)
[2020-12-09] MEDS: Acetaminophen 325 MG TAB PO PRN (08:58)
[2020-12-09] MEDS: Benzonatate 100 MG CAP PO PRN (08:59)
[2020-12-09 09:49] LABS: #Eosinphils 0.1 thou/uL (0.0-0.7); #Lymphocytes 0.7 thou/uL (1.20-3.40); #Monocytes 1.4 thou/uL (0.11-0.59); #Neutrophils 16.1 thou/uL (1.40-6.50); %Basophils 0.1 % (0.0-1.0); %Eosinophils 0.5 % (0.0-10.0); %Lymphocytes 3.9 % (21.0-51.0); %Monocytes 7.7 % (0.0-10.0); %Neutrophils 87.9 % (42.0-75.0); Hemoglobin 9.3 g/dL (12.0-16.0); Mean Corpuscular Hemoglobin 30.4 pg (27.0-31.0); Mean Corpuscular Volume 89.5 fL (78.0-98.0); Mean Platelet Volume 9.9 fL (7.4-10.4); Platelet Count 162 thou/uL (130-400); RBC Distribution Width 12.7 % (11.5-14.5); Red Blood Cell (RBC) Count 3.06 mill/uL (4.20-5.40); White Blood Cell (WBC) Count 18.3 thou/uL (4.8-10.8)
[2020-12-09 10:12] LABS: Anion Gap 18 mmol/L (10-20); BUN (Urea Nitrogen) 90 mg/dL (9.8-20.1); Calc. Creatinine Clearance 13 mL/min (70-130); Calcium 8.1 mg/dL (7.8-10.44); Carbon Dioxide 19 mmol/L (23-31); Chloride 96 mmol/L (98-107); Glucose 290 mg/dL (83-110); Potassium 4.5 mmol/L (3.5-5.1); Sodium 128 mmol/L (136-145)
[2020-12-09] MEDS ORDERED: BIOTENE MOUTH SPRAY 44.3 ML MM PRN (11:05)
[2020-12-09 11:44] LABS: Actual Bicarbonate (HCO3a) 21.2 mEq/L (22-28); Base Excess (BEa) -5.4 mEq/L (-2.0 to +3.0); CO2 Tension 46.7 mmHg (35.0-45.0); Calcium, Ionized (arterial) 1.08 mmol/L (1.12-1.30); Carboxyhemoglobin (COHb) 2.9 gm% (0.0-3.0); Hemoglobin (Hb) 9.5 g/dL (12.0-16.0); Potassium - ABG Lab 4.32 mmol/L (3.70-5.30); pH, Arterial 7.28 (7.35-7.45)
[2020-12-09 11:48] LABS: O2 Tension (PaO2), arterial 55.8 mmHg (> 70.0); Puncture Site LBA
[2020-12-09] MEDS ORDERED: Furosemide 40 MG/4 ML VIAL SLOW IVP SCH (13:00)
[2020-12-09] MEDS: Sodium Chloride 0.9% 1,000 ML IV SCH (14:36)
[2020-12-09] MEDS: cefTRIAXone\\ROCEPHIN 1 GM in Sodium Chloride 0.9% 100 ML IVPB SCH (14:50)
[2020-12-09] MEDS: methylPREDNISolone Sod Succ 40 MG VIAL IVP SCH ×2 (17:56→23:53)
[2020-12-09] MEDS: Pantoprazole 40 MG VIAL IVP SCH (20:54)
[2020-12-09] MEDS: Lantus 1000 UNITS/10 ML VIAL SC SCH (20:54)
[2020-12-10 04:19] LABS: #Eosinphils 0.1 thou/uL (0.0-0.7); #Lymphocytes 0.6 thou/uL (1.20-3.40); #Monocytes 0.4 thou/uL (0.11-0.59); #Neutrophils 13.8 thou/uL (1.40-6.50); %Eosinophils 0.5 % (0.0-10.0); %Lymphocytes 4.1 % (21.0-51.0); %Monocytes 2.6 % (0.0-10.0); %Neutrophils 92.8 % (42.0-75.0); Hemoglobin 9.1 g/dL (12.0-16.0); Mean Corpuscular Hemoglobin 30.3 pg (27.0-31.0); Mean Corpuscular Volume 89.2 fL (78.0-98.0); Mean Platelet Volume 9.8 fL (7.4-10.4); Platelet Count 143 thou/uL (130-400); RBC Distribution Width 12.6 % (11.5-14.5); Red Blood Cell (RBC) Count 3.01 mill/uL (4.20-5.40); White Blood Cell (WBC) Count 14.8 thou/uL (4.8-10.8)
[2020-12-10 04:39] LABS: Anion Gap 18 mmol/L (10-20); BUN (Urea Nitrogen) 91 mg/dL (9.8-20.1); Calc. Creatinine Clearance 13 mL/min (70-130); Calcium 7.8 mg/dL (7.8-10.44); Carbon Dioxide 16 mmol/L (23-31); Chloride 97 mmol/L (98-107); Glucose 231 mg/dL (83-110); Potassium 4.8 mmol/L (3.5-5.1); Sodium 126 mmol/L (136-145)
[2020-12-10] MEDS: HumaLOG 300 UNITS/3 ML VIAL SC PRN ×2 (05:50→17:03)
[2020-12-10] MEDS: methylPREDNISolone Sod Succ 40 MG VIAL IVP SCH ×4 (05:52→22:35)
[2020-12-10] MEDS: Acetaminophen 325 MG TAB PO PRN (07:00)
[2020-12-10] MEDS: Benzonatate 100 MG CAP PO PRN (07:22)
[2020-12-10] MEDS: Mometasone 100 MCG/Formoterol 5 MCG 120 PUFF INHALER INH SCH ×2 (07:31→18:30)
[2020-12-10] MEDS: guaiFENesin ER 600 MG TAB PO SCH ×2 (08:29→21:16)
[2020-12-10] MEDS: Azithromycin 250 MG TAB PO SCH (08:29)
[2020-12-10] MEDS: Enoxaparin Sodium 30 MG/0.3 ML SYRINGE SC SCH (08:30)
[2020-12-10] MEDS: NIFEdipine XL 30 MG TAB PO SCH ×2 (08:32→21:14)
[2020-12-10] MEDS ORDERED: Furosemide 40 MG/4 ML VIAL SLOW IVP SCH (11:15)
[2020-12-10] MEDS: cefTRIAXone\\ROCEPHIN 1 GM in Sodium Chloride 0.9% 100 ML IVPB SCH (12:40)
[2020-12-10] MEDS: Sodium Chloride 0.9% 1,000 ML IV SCH ×2 (12:42→22:39)
[2020-12-10] MEDS: Pantoprazole 40 MG VIAL IVP SCH (21:15)
[2020-12-10] MEDS: Lantus 1000 UNITS/10 ML VIAL SC SCH (21:23)
[2020-12-10] MEDS: Ondansetron PF 4 MG/2 ML Vial IVP PRN (23:34)
[2020-12-11 03:39] LABS: #Lymphocytes 0.6 thou/uL (1.20-3.40); #Monocytes 0.7 thou/uL (0.11-0.59); #Neutrophils 10.9 thou/uL (1.40-6.50); %Eosinophils 0.4 % (0.0-10.0); %Lymphocytes 5.1 % (21.0-51.0); %Monocytes 5.4 % (0.0-10.0); %Neutrophils 89.1 % (42.0-75.0); Hemoglobin 8.8 g/dL (12.0-16.0); Mean Corpuscular HGB CONC 34.6 g/dL (32.0-36.0); Mean Corpuscular Hemoglobin 30.8 pg (27.0-31.0); Mean Corpuscular Volume 89.1 fL (78.0-98.0); Mean Platelet Volume 10.1 fL (7.4-10.4); Platelet Count 148 thou/uL (130-400); RBC Distribution Width 12.6 % (11.5-14.5); Red Blood Cell (RBC) Count 2.86 mill/uL (4.20-5.40); White Blood Cell (WBC) Count 12.2 thou/uL (4.8-10.8)
[2020-12-11 03:53] LABS: Anion Gap 18 mmol/L (10-20); BUN (Urea Nitrogen) 108 mg/dL (9.8-20.1); Calc. Creatinine Clearance 13 mL/min (70-130); Calcium 7.9 mg/dL (7.8-10.44); Carbon Dioxide 18 mmol/L (23-31); Chloride 98 mmol/L (98-107); Glucose 279 mg/dL (83-110); Potassium 4.7 mmol/L (3.5-5.1); Sodium 129 mmol/L (136-145)
[2020-12-11] MEDS: methylPREDNISolone Sod Succ 40 MG VIAL IVP SCH ×3 (06:40→22:11)
[2020-12-11] MEDS: HumaLOG 300 UNITS/3 ML VIAL SC PRN (06:43)
[2020-12-11] MEDS: Mometasone 100 MCG/Formoterol 5 MCG 120 PUFF INHALER INH SCH ×2 (08:02→19:38)
[2020-12-11] MEDS: guaiFENesin ER 600 MG TAB PO SCH ×2 (09:07→20:49)
[2020-12-11] MEDS: NIFEdipine XL 30 MG TAB PO SCH ×2 (09:08→20:50)
[2020-12-11] MEDS: Azithromycin 250 MG TAB PO SCH (09:08)
[2020-12-11] MEDS: Enoxaparin Sodium 30 MG/0.3 ML SYRINGE SC SCH (09:08)
[2020-12-11] MEDS: cefTRIAXone\\ROCEPHIN 1 GM in Sodium Chloride 0.9% 100 ML IVPB SCH (14:53)
[2020-12-11] MEDS: Pantoprazole 40 MG VIAL IVP SCH (20:50)
[2020-12-11] MEDS: Lantus 1000 UNITS/10 ML VIAL SC SCH (20:54)
[2020-12-12 03:42] LABS: #Eosinphils 0.1 thou/uL (0.0-0.7); #Lymphocytes 0.8 thou/uL (1.20-3.40); #Monocytes 0.8 thou/uL (0.11-0.59); #Neutrophils 14.8 thou/uL (1.40-6.50); %Eosinophils 0.5 % (0.0-10.0); %Lymphocytes 4.8 % (21.0-51.0); %Monocytes 4.9 % (0.0-10.0); %Neutrophils 89.8 % (42.0-75.0); Hemoglobin 9.5 g/dL (12.0-16.0); Mean Corpuscular HGB CONC 32.8 g/dL (32.0-36.0); Mean Corpuscular Hemoglobin 29.3 pg (27.0-31.0); Mean Corpuscular Volume 89.3 fL (78.0-98.0); Mean Platelet Volume 10.2 fL (7.4-10.4); Platelet Count 175 thou/uL (130-400); RBC Distribution Width 12.5 % (11.5-14.5); Red Blood Cell (RBC) Count 3.25 mill/uL (4.20-5.40); White Blood Cell (WBC) Count 16.4 thou/uL (4.8-10.8)
[2020-12-12 03:56] LABS: Anion Gap 19 mmol/L (10-20); BUN (Urea Nitrogen) 124 mg/dL (9.8-20.1); Calc. Creatinine Clearance 12 mL/min (70-130); Calcium 8.2 mg/dL (7.8-10.44); Carbon Dioxide 18 mmol/L (23-31); Chloride 98 mmol/L (98-107); Glucose 266 mg/dL (83-110); Potassium 5.5 mmol/L (3.5-5.1); Sodium 129 mmol/L (136-145)
[2020-12-12] MEDS: methylPREDNISolone Sod Succ 40 MG VIAL IVP SCH ×3 (06:20→21:08)
[2020-12-12] MEDS: HumaLOG 300 UNITS/3 ML VIAL SC PRN (06:22)
[2020-12-12] MEDS: Mometasone 100 MCG/Formoterol 5 MCG 120 PUFF INHALER INH SCH ×2 (08:15→19:56)
[2020-12-12] MEDS ORDERED: Heparin 10,000 UNITS/ 10 ML VIAL ONE (08:43)
[2020-12-12] MEDS: NIFEdipine XL 30 MG TAB PO SCH ×2 (10:06→21:08)
[2020-12-12] MEDS: guaiFENesin ER 600 MG TAB PO SCH ×2 (10:06→21:07)
[2020-12-12] MEDS: Enoxaparin Sodium 30 MG/0.3 ML SYRINGE SC SCH (10:06)
[2020-12-12] MEDS ORDERED: Tuberculin PPD 0.1 ML VIAL I-DERMAL SCH (12:00)
[2020-12-12] MEDS: Acetaminophen 325 MG TAB PO PRN (13:20)
[2020-12-12 14:19] LABS: HBSAg Index 0.23 S/CO (0-0.99); Hep B Core Total Ab Non-Reactive (NonReactive); Hep B Surf Ag Non-Reactive S/CO (NonReactive)
[2020-12-12 14:27] LABS: HBSAB Concentration Less than 8.00 mIU/mL; Hep B Surf AB Non-Reactive (NonReactive); Hep C IgG Ab Non-Reactive (NonReactive); Hep C Index 0.03 S/CO (0-0.79)
[2020-12-12] MEDS: Lantus 1000 UNITS/10 ML VIAL SC SCH (21:08)
[2020-12-13] MEDS: hydrALAZINE 20 MG/ML VIAL SLOW IVP PRN ×3 (04:27→21:44)
[2020-12-13] MEDS: methylPREDNISolone Sod Succ 40 MG VIAL IVP SCH ×3 (05:16→21:44)
[2020-12-13] MEDS: Acetaminophen 325 MG TAB PO PRN (05:21)
[2020-12-13] MEDS: Benzonatate 100 MG CAP PO PRN ×2 (05:38→21:44)
[2020-12-13] MEDS: Mometasone 100 MCG/Formoterol 5 MCG 120 PUFF INHALER INH SCH ×2 (08:17→21:39)
[2020-12-13] MEDS ORDERED: Heparin 10,000 UNITS/ 10 ML VIAL ONE (08:48)
[2020-12-13] MEDS: Enoxaparin Sodium 30 MG/0.3 ML SYRINGE SC SCH (08:54)
[2020-12-13] MEDS: NIFEdipine XL 30 MG TAB PO SCH ×2 (08:55→21:44)
[2020-12-13] MEDS: guaiFENesin ER 600 MG TAB PO SCH ×2 (08:55→21:44)
[2020-12-13 10:47] LABS: #Eosinphils 0.1 thou/uL (0.0-0.7); #Lymphocytes 0.6 thou/uL (1.20-3.40); #Monocytes 0.9 thou/uL (0.11-0.59); #Neutrophils 13.9 thou/uL (1.40-6.50); %Basophils 0.1 % (0.0-1.0); %Eosinophils 0.6 % (0.0-10.0); %Lymphocytes 4.1 % (21.0-51.0); %Monocytes 5.5 % (0.0-10.0); %Neutrophils 89.7 % (42.0-75.0); Hemoglobin 9.4 g/dL (12.0-16.0); Mean Corpuscular Hemoglobin 30.1 pg (27.0-31.0); Mean Corpuscular Volume 88.4 fL (78.0-98.0); Mean Platelet Volume 9.7 fL (7.4-10.4); Platelet Count 167 thou/uL (130-400); RBC Distribution Width 12.5 % (11.5-14.5); Red Blood Cell (RBC) Count 3.12 mill/uL (4.20-5.40); White Blood Cell (WBC) Count 15.5 thou/uL (4.8-10.8)
[2020-12-13 11:08] LABS: Anion Gap 15 mmol/L (10-20); BUN (Urea Nitrogen) 85 mg/dL (9.8-20.1); Calc. Creatinine Clearance 18 mL/min (70-130); Calcium 8.2 mg/dL (7.8-10.44); Carbon Dioxide 24 mmol/L (23-31); Chloride 101 mmol/L (98-107); Glucose 171 mg/dL (83-110); Potassium 4.8 mmol/L (3.5-5.1); Sodium 135 mmol/L (136-145)
[2020-12-13] MEDS: HumaLOG 300 UNITS/3 ML VIAL SC PRN (11:30)
[2020-12-13] MEDS: Docusate 100 MG CAP PO PRN (21:44)
[2020-12-13] MEDS: Lantus 1000 UNITS/10 ML VIAL SC SCH (21:45)
[2020-12-14] MEDS: methylPREDNISolone Sod Succ 40 MG VIAL IVP SCH ×3 (05:33→21:28)
[2020-12-14 06:14] LABS: Anion Gap 12 mmol/L (10-20); BUN (Urea Nitrogen) 46 mg/dL (9.8-20.1); Calc. Creatinine Clearance 26 mL/min (70-130); Calcium 8.2 mg/dL (7.8-10.44); Carbon Dioxide 29 mmol/L (23-31); Chloride 101 mmol/L (98-107); Glucose 96 mg/dL (83-110); Potassium 4.4 mmol/L (3.5-5.1); Sodium 138 mmol/L (136-145)
[2020-12-14] MEDS: Mometasone 100 MCG/Formoterol 5 MCG 120 PUFF INHALER INH SCH ×2 (08:20→18:39)
[2020-12-14] MEDS ORDERED: Heparin 10,000 UNITS/ 10 ML VIAL ONE (09:11)
[2020-12-14] MEDS: NIFEdipine XL 30 MG TAB PO SCH ×2 (10:42→21:27)
[2020-12-14] MEDS: Enoxaparin Sodium 30 MG/0.3 ML SYRINGE SC SCH (10:42)
[2020-12-14] MEDS: guaiFENesin ER 600 MG TAB PO SCH ×2 (10:42→21:26)
[2020-12-14] MEDS ORDERED: CEFAZOLIN 2 GM in Premix Bag 1 BAG IVPB SCH (12:30)
[2020-12-14] MEDS: HumaLOG 300 UNITS/3 ML VIAL SC PRN (21:26)
[2020-12-14] MEDS: Lantus 1000 UNITS/10 ML VIAL SC SCH (21:26)
[2020-12-14] MEDS: Docusate 100 MG CAP PO PRN (21:27)
[2020-12-15 06:15] LABS: Anion Gap 9 mmol/L (10-20); BUN (Urea Nitrogen) 35 mg/dL (9.8-20.1); Calc. Creatinine Clearance 30 mL/min (70-130); Calcium 8.2 mg/dL (7.8-10.44); Carbon Dioxide 32 mmol/L (23-31); Chloride 100 mmol/L (98-107); Glucose 167 mg/dL (83-110); Sodium 137 mmol/L (136-145)
[2020-12-15] MEDS: methylPREDNISolone Sod Succ 40 MG VIAL IVP SCH ×3 (06:43→21:16)
[2020-12-15] MEDS: Mometasone 100 MCG/Formoterol 5 MCG 120 PUFF INHALER INH SCH ×2 (07:50→17:54)
[2020-12-15] MEDS: hydrALAZINE 20 MG/ML VIAL SLOW IVP PRN ×2 (09:02→14:14)
[2020-12-15] MEDS: guaiFENesin ER 600 MG TAB PO SCH ×2 (09:08→21:15)
[2020-12-15] MEDS: NIFEdipine XL 30 MG TAB PO SCH ×2 (09:08→21:15)
[2020-12-15] MEDS: Enoxaparin Sodium 30 MG/0.3 ML SYRINGE SC SCH (09:09)
[2020-12-15] MEDS ORDERED: Heparin 10,000 UNITS/ 10 ML VIAL ONE (10:38)
[2020-12-15] MEDS ORDERED: Protamine Sulfate 50 MG/5 ML VIAL ONE (10:38)
[2020-12-15] MEDS ORDERED: Heparin 5,000 UNITS/ML VIAL ONE (10:38)
[2020-12-15] MEDS ORDERED: Bupivacaine PF 0.5% 30 ML VIAL ONE (10:38)
[2020-12-15] MEDS ORDERED: Lidocaine 1% w/Epinephrine 1:100K 20 ML VIAL ONE (10:38)
[2020-12-15] MEDS ORDERED: Sodium Chloride 0.9% 10 ML ONE ×2 (10:38→10:39)
[2020-12-15] MEDS ORDERED: Fentanyl 100 MCG/2 ML VIAL ONE (10:41)
[2020-12-15] MEDS ORDERED: Propofol 500 MG/50 ML VIAL ONE (10:41)
[2020-12-15] MEDS ORDERED: Ondansetron PF 4 MG/2 ML Vial ONE (11:14)
[2020-12-15] MEDS ORDERED: Bupivacaine HCl 0.5%/Epinephrine 1:200,000/PF 30 ml Vial ONE (11:14)
[2020-12-15] MEDS ORDERED: Promethazine HCl 25 MG/ML VIAL IVPB PRN (12:13)
[2020-12-15] MEDS ORDERED: HYDROmorphone 2 MG/ML VIAL SLOW IVP PRN (12:13)
[2020-12-15] MEDS ORDERED: Promethazine HCl 25 MG/ML VIAL IM PRN (12:13)
[2020-12-15 13:14] VITALS: BMI 42.7
[2020-12-15] MEDS ORDERED: hydrALAZINE 20 MG/ML VIAL ONE (14:13)
[2020-12-15] MEDS: Docusate 100 MG CAP PO PRN (21:15)
[2020-12-15] MEDS: Lantus 1000 UNITS/10 ML VIAL SC SCH (21:21)
[2020-12-16] MEDS: methylPREDNISolone Sod Succ 40 MG VIAL IVP SCH ×3 (06:14→21:50)
[2020-12-16] MEDS: Acetaminophen 325 MG TAB PO PRN (06:27)
[2020-12-16 07:10] LABS: Anion Gap 7 mmol/L (10-20); BUN (Urea Nitrogen) 51 mg/dL (9.8-20.1); Calc. Creatinine Clearance 23 mL/min (70-130); Calcium 8.1 mg/dL (7.8-10.44); Carbon Dioxide 32 mmol/L (23-31); Chloride 102 mmol/L (98-107); Glucose 83 mg/dL (83-110); Potassium 4.3 mmol/L (3.5-5.1); Sodium 137 mmol/L (136-145)
[2020-12-16] MEDS: Mometasone 100 MCG/Formoterol 5 MCG 120 PUFF INHALER INH SCH ×2 (08:23→17:57)
[2020-12-16] MEDS: guaiFENesin ER 600 MG TAB PO SCH ×2 (08:35→21:50)
[2020-12-16] MEDS: NIFEdipine XL 30 MG TAB PO SCH ×2 (08:35→21:49)
[2020-12-16] MEDS: Enoxaparin Sodium 30 MG/0.3 ML SYRINGE SC SCH (08:36)
[2020-12-16] MEDS ORDERED: Heparin 10,000 UNITS/ 10 ML VIAL ONE (09:16)
[2020-12-16] MEDS: hydrALAZINE 25 MG TAB PO SCH ×2 (16:17→21:50)
[2020-12-16] MEDS: Benzonatate 100 MG CAP PO PRN (21:49)
[2020-12-16] MEDS: Docusate 100 MG CAP PO PRN (21:50)
[2020-12-16] MEDS: Lantus 1000 UNITS/10 ML VIAL SC SCH (21:57)
[2020-12-17] MEDS: hydrALAZINE 20 MG/ML VIAL SLOW IVP PRN ×2 (00:02→06:17)
[2020-12-17] MEDS: methylPREDNISolone Sod Succ 40 MG VIAL IVP SCH (06:08)
[2020-12-17] MEDS: Acetaminophen 325 MG TAB PO PRN (07:21)
[2020-12-17 07:29] LABS: Anion Gap 9 mmol/L (10-20); BUN (Urea Nitrogen) 26 mg/dL (9.8-20.1); Calc. Creatinine Clearance 37 mL/min (70-130); Calcium 7.8 mg/dL (7.8-10.44); Carbon Dioxide 31 mmol/L (23-31); Chloride 101 mmol/L (98-107); Glucose 92 mg/dL (83-110); Potassium 3.9 mmol/L (3.5-5.1); Sodium 137 mmol/L (136-145)
[2020-12-17] MEDS: Mometasone 100 MCG/Formoterol 5 MCG 120 PUFF INHALER INH SCH ×2 (07:44→19:04)
[2020-12-17] MEDS: Enoxaparin Sodium 30 MG/0.3 ML SYRINGE SC SCH (08:41)
[2020-12-17] MEDS: NIFEdipine XL 30 MG TAB PO SCH (08:41)
[2020-12-17] MEDS: guaiFENesin ER 600 MG TAB PO SCH ×2 (08:42→19:53)
[2020-12-17] MEDS: hydrALAZINE 25 MG TAB PO SCH ×3 (08:42→19:53)
[2020-12-17] MEDS: Docusate 100 MG CAP PO PRN (11:14)
[2020-12-17] MEDS: HumaLOG 300 UNITS/3 ML VIAL SC PRN ×2 (11:16→16:23)
[2020-12-17] MEDS ORDERED: Furosemide 40 MG TAB PO SCH (13:30)
[2020-12-17] MEDS ORDERED: Polyethylene Glycol 3350 17 GM Packet PO SCH (13:30)
[2020-12-17] MEDS: Senokot S 8.6-50 MG TAB PO SCH (19:53)
[2020-12-17] MEDS: Lantus 1000 UNITS/10 ML VIAL SC SCH (19:54)
[2020-12-18] MEDS: Mometasone 100 MCG/Formoterol 5 MCG 120 PUFF INHALER INH SCH (08:01)
[2020-12-18] MEDS ORDERED: Furosemide 40 MG TAB PO SCH (09:00)
[2020-12-18] MEDS ORDERED: Polyethylene Glycol 3350 17 GM Packet PO SCH (09:00)
[2020-12-18 09:12] VITALS: TEMP 97.8
[2020-12-18] MEDS: Enoxaparin Sodium 30 MG/0.3 ML SYRINGE SC SCH (09:13)
[2020-12-18] MEDS: NIFEdipine XL 30 MG TAB PO SCH (09:14)
[2020-12-18] MEDS: guaiFENesin ER 600 MG TAB PO SCH (09:14)
[2020-12-18] MEDS: Senokot S 8.6-50 MG TAB PO SCH (09:14)
[2020-12-18] MEDS: hydrALAZINE 25 MG TAB PO SCH (09:15)
[2020-12-18 10:44] VITALS: BP 102/51
[2020-12-18 11:08] LABS: #Basophils 0.1 thou/uL (0.0-0.2); #Eosinphils 0.2 thou/uL (0.0-0.7); #Lymphocytes 2.5 thou/uL (1.20-3.40); #Monocytes 1.2 thou/uL (0.11-0.59); #Neutrophils 10.2 thou/uL (1.40-6.50); %Basophils 0.6 % (0.0-1.0); %Eosinophils 1.1 % (0.0-10.0); %Lymphocytes 17.6 % (21.0-51.0); %Monocytes 8.3 % (0.0-10.0); %Neutrophils 72.4 % (42.0-75.0); Hemoglobin 8.7 g/dL (12.0-16.0); Mean Corpuscular HGB CONC 32.5 g/dL (32.0-36.0); Mean Corpuscular Hemoglobin 29.8 pg (27.0-31.0); Mean Corpuscular Volume 91.7 fL (78.0-98.0); Mean Platelet Volume 9.5 fL (7.4-10.4); Platelet Count 110 thou/uL (130-400); Platelet Morphology Comment Appears Decreased; RBC Distribution Width 12.5 % (11.5-14.5); RBC Morphology Normal; Red Blood Cell (RBC) Count 2.93 mill/uL (4.20-5.40); White Blood Cell (WBC) Count 14.1 thou/uL (4.8-10.8)
[2020-12-18 12:23] LABS: Anion Gap 9 mmol/L (10-20); BUN (Urea Nitrogen) 42 mg/dL (9.8-20.1); Calc. Creatinine Clearance 24 mL/min (70-130); Calcium 7.9 mg/dL (7.8-10.44); Carbon Dioxide 29 mmol/L (23-31); Chloride 98 mmol/L (98-107); Glucose 108 mg/dL (83-110); Potassium 3.4 mmol/L (3.5-5.1); Sodium 133 mmol/L (136-145)
[2020-12-19] MEDS ORDERED: NIFEdipine XL 30 MG TAB PO SCH (09:00)
== END 2020-12-18 14:40 | disposition home or self-care (01) | DRG 673 ==
LOC: ERS 19:32 → 2SE 22:46 → CCU 12-09 12:55 → IMCU/EMU 12-09 21:22 → ONC 12-12 17:43
PROVIDERS: ADMIT Internal Medicine; ATTEND Internal Medicine
PROC: 5A09457 Assistance with Respiratory Ventilation, 24-96 Consecutive Hours, Continuous Positive Airway Pressure (ICD-10-PCS; 2020-12-09)
PROC: 06HY33Z Insertion of Infusion Device into Lower Vein, Percutaneous Approach (ICD-10-PCS; 2020-12-12)
PROC: 031B0ZF Bypass Right Radial Artery to Lower Arm Vein, Open Approach (ICD-10-PCS; principal; 2020-12-15)
PROC: 0JH60XZ Insertion of Tunneled Vascular Access Device into Chest Subcutaneous Tissue and Fascia, Open Approach (ICD-10-PCS; 2020-12-15)
PROC: 02HV33Z Insertion of Infusion Device into Superior Vena Cava, Percutaneous Approach (ICD-10-PCS; 2020-12-15)
PROC: B5181ZA Fluoroscopy of Superior Vena Cava using Low Osmolar Contrast, Guidance (ICD-10-PCS; 2020-12-15)
PROC: B548ZZA Ultrasonography of Superior Vena Cava, Guidance (ICD-10-PCS; 2020-12-15)
PROC: 5A1D70Z Performance of Urinary Filtration, Intermittent, Less than 6 Hours Per Day (ICD-10-PCS; 2020-12-16)
DX: N17.9 Acute kidney failure, unspecified (principal); I50.33 Acute on chronic diastolic (congestive) heart failure; I21.A1 Myocardial infarction type 2; J96.01 Acute respiratory failure with hypoxia; J98.59 Other diseases of mediastinum, not elsewhere classified; I13.2 Hypertensive heart and chronic kidney disease with heart failure and with stage 5 chronic kidney disease, or end stage renal disease; J44.1 Chronic obstructive pulmonary disease with (acute) exacerbation; N39.0 Urinary tract infection, site not specified; Z68.41 Body mass index [BMI] 40.0-44.9, adult; E87.1 Hypo-osmolality and hyponatremia; E87.2 Acidosis; N18.6 End stage renal disease; K52.9 Noninfective gastroenteritis and colitis, unspecified; E11.22 Type 2 diabetes mellitus with diabetic chronic kidney disease; D63.1 Anemia in chronic kidney disease; E78.5 Hyperlipidemia, unspecified; E04.1 Nontoxic single thyroid nodule; F32.9 Major depressive disorder, single episode, unspecified; R13.10 Dysphagia, unspecified; E88.81 Metabolic syndrome and other insulin resistance; E66.01 Morbid (severe) obesity due to excess calories; K21.9 Gastro-esophageal reflux disease without esophagitis; Z20.822 Contact with and (suspected) exposure to COVID-19; G47.33 Obstructive sleep apnea (adult) (pediatric); E87.5 Hyperkalemia; Z88.8 Allergy status to other drugs, medicaments and biological substances; Z79.4 Long term (current) use of insulin; Z79.899 Other long term (current) drug therapy; Z98.890 Other specified postprocedural states
CPT/HCPCS: 0240U; 36415; 36416; 36600; 71045; 71250; 74230; 76536; 80048; 80053; 81001; 82805; 83605; 83880; 84443; 84484; 85025; 86580; 86704; 86706; 86803; 87086; 87340; 90935; 93306; 93970; 94640; 94660; 94664; 96374; 96375; C1751; C1752; C9113; G0257; J0360; J0690; J0692; J0696; J1642; J1644; J1650; J1815; J1940; J2405; J2704; J2720; J2920; J2930; J3010; J3490; J7512; J7620; S0020

== ENCOUNTER 2021-02-16 07:06 | Day surgery (SDC) | payer MEDICARE, MEDICAID ==
[2021-02-15 12:33] VITALS: BMI 33.8
[2021-02-16] MEDS ORDERED: DOBUTamine 250 MG/20 ML VIAL ONE (10:19)
[2021-02-16 10:23] VITALS: BP 144/65; TEMP 98.1
[2021-02-16] MEDS ORDERED: FLU VACC QS2021-22(65YR UP)/PF 240 MCG/0.7 ML SYRINGE IM ONE (11:00)
[2021-02-16] MEDS ORDERED: Iopamidol 300 61% 100 ML VIAL FS ONE (12:15)
== END 2021-02-16 10:00 | disposition home or self-care (01) ==
LOC: SPEC 07:06
PROVIDERS: ATTEND Specialist
PROC: B51W1ZZ Fluoroscopy of Dialysis Shunt/Fistula using Low Osmolar Contrast (ICD-10-PCS; principal; 2021-02-16)
DX: T82.590A Other mechanical complication of surgically created arteriovenous fistula, initial encounter (principal); I12.0 Hypertensive chronic kidney disease with stage 5 chronic kidney disease or end stage renal disease; E11.22 Type 2 diabetes mellitus with diabetic chronic kidney disease; N18.6 End stage renal disease; G47.33 Obstructive sleep apnea (adult) (pediatric); E05.90 Thyrotoxicosis, unspecified without thyrotoxic crisis or storm; K21.9 Gastro-esophageal reflux disease without esophagitis; E66.9 Obesity, unspecified; Z68.33 Body mass index [BMI] 33.0-33.9, adult; Z88.6 Allergy status to analgesic agent; Z88.8 Allergy status to other drugs, medicaments and biological substances
CPT/HCPCS: 36901; 90471; 90662; 90732; G0008; G0009

== ENCOUNTER 2021-06-05 10:28 | Emergency (ER) | payer MEDICARE, OTHER ==
[2021-06-05] MEDS ORDERED: Ondansetron PF 4 MG/2 ML Vial ONE (13:41)
[2021-06-05] MEDS ORDERED: Dicyclomine 20 MG TAB ONE (13:41)
[2021-06-05 14:00] LABS: #Lymphocytes 1.7 thou/uL (1.20-3.40); #Monocytes 0.4 thou/uL (0.11-0.59); #Neutrophils 3.1 thou/uL (1.40-6.50); %Basophils 0.6 % (0.0-1.0); %Eosinophils 0.8 % (0.0-10.0); %Lymphocytes 32.3 % (21.0-51.0); %Monocytes 7.1 % (0.0-10.0); %Neutrophils 59.1 % (42.0-75.0); Hemoglobin 10.3 g/dL (12.0-16.0); Mean Corpuscular HGB CONC 32.5 g/dL (32.0-36.0); Mean Corpuscular Hemoglobin 30.8 pg (27.0-31.0); Mean Corpuscular Volume 94.7 fL (78.0-98.0); Mean Platelet Volume 7.6 fL (7.4-10.4); Platelet Count 205 thou/uL (130-400); RBC Distribution Width 13.7 % (11.5-14.5); Red Blood Cell (RBC) Count 3.34 mill/uL (4.20-5.40); White Blood Cell (WBC) Count 5.2 thou/uL (4.8-10.8)
[2021-06-05 14:21] LABS: ALT (SGPT) 15 U/L (8-55); AST (SGOT) 27 U/L (5-34); Albumin 2.8 g/dL (3.4-4.8); Alkaline Phosphatase 107 U/L (40-110); Anion Gap 14 mmol/L (10-20); BUN (Urea Nitrogen) 21 mg/dL (9.8-20.1); Bilirubin, Total 0.4 mg/dL (0.2-1.2); Calc. Creatinine Clearance 0 mL/min (70-130); Calcium 8.1 mg/dL (7.8-10.44); Carbon Dioxide 26 mmol/L (23-31); Chloride 101 mmol/L (98-107); Globulin 2.3 g/dL (2.4-3.5); Glucose 144 mg/dL (83-110); Lipase 23 U/L (8-78); Magnesium 1.9 mg/dL (1.6-2.6); Potassium 4.3 mmol/L (3.5-5.1); Protein, Total 5.1 g/dL (5.8-8.1); Sodium 137 mmol/L (136-145)
[2021-06-06 15:37] LABS: SARS-CoV-2 PCR by NAA DETECTED (NotDetected)
== END 2021-06-05 17:40 | disposition home or self-care (01) ==
LOC: ERS 10:28
DX: U07.1 COVID-19 (principal); D64.9 Anemia, unspecified; R10.33 Periumbilical pain; I10 Essential (primary) hypertension; E11.9 Type 2 diabetes mellitus without complications; E78.5 Hyperlipidemia, unspecified; E78.00 Pure hypercholesterolemia, unspecified; J45.909 Unspecified asthma, uncomplicated; Z79.4 Long term (current) use of insulin; Z79.899 Other long term (current) drug therapy
CPT/HCPCS: 74177; 80053; 83605; 83690; 83735; 84484; 85025; 93005; U0003; U0005; 36415; 96374; J2405

== ENCOUNTER 2022-04-24 10:56 | Outpatient (CLI) | payer OTHER | END 2022-04-24 10:57 | disposition home or self-care (01) | LOC: RAD 10:56 | PROVIDERS: ATTEND Internal Medicine Critical Care Medicine | DX: R06.00 Dyspnea, unspecified (principal) | CPT/HCPCS: 71046 ==

== ENCOUNTER 2022-08-08 14:06 | Emergency (ER) | payer OTHER ==
[2022-08-08] MEDS ORDERED: Aspirin Chewable 81 MG TAB ONE (14:48)
[2022-08-08] MEDS ORDERED: Acetaminophen 500 MG TAB ONE (14:48)
[2022-08-08] MEDS ORDERED: Nitroglycerin 2% Ointment 1 INCH/1 GM Packet ONE (14:52)
[2022-08-08 15:06] LABS: Hemoglobin 11.2 g/dL (12.0-16.0); Mean Corpuscular HGB CONC 36.5 g/dL (32.0-36.0); Mean Corpuscular Hemoglobin 34.8 pg (27.0-31.0); Mean Corpuscular Volume 95.4 fl (78.0-98.0); Mean Platelet Volume 8.6 fL (7.4-10.4); Platelet Count 192 10x3/uL (130-400); Red Blood Cell (RBC) Count 3.22 mill/uL (4.20-5.40); White Blood Cell (WBC) Count 8.1 10x3/uL (4.8-10.8)
[2022-08-08 15:07] LABS: ALT (SGPT) 13 U/L (8-55); AST (SGOT) 18 U/L (5-34); Alkaline Phosphatase 130 U/L (40-110); Anion Gap 15 mmol/L (10-20); BUN (Urea Nitrogen) 12 mg/dL (9.8-20.1); Bilirubin, Total 0.3 mg/dL (0.2-1.2); CK (CPK) 164 U/L (29-168); Calc. Creatinine Clearance 0 mL/min (70-130); Calcium 9.2 mg/dL (7.8-10.44); Carbon Dioxide 31 mmol/L (23-31); Chloride 97 mmol/L (98-107); Estimated GFR 22; Globulin 2.6 g/dL (2.4-3.5); Glucose 95 mg/dL (83-110); Lipase 51 U/L (8-78); Potassium 3.8 mmol/L (3.5-5.1); Protein, Total 6.6 g/dL (5.8-8.1); Sodium 139 mmol/L (136-145)
[2022-08-08 15:55] LABS: #Eosinphils 0.1 thou/uL (0.0-0.7); #Monocytes 0.6 thou/uL (0.11-0.59); #Neutrophils 5.4 thou/uL (1.40-6.50); %Basophils 0.6 % (0.0-1.0); %Eosinophils 1.5 % (0.0-10.0); %Lymphocytes 24.1 % (21.0-51.0); %Monocytes 7.4 % (0.0-10.0); %Neutrophils 66.5 % (42.0-75.0); Hypochromia SLIGHT = 6-15 cells (100X) (0-5/hpf); MDiff Complete? YES; Platelet Morphology Comment Appears Adequate; Polychromasia SLIGHT = 2-3 cells (100X) (0-2/hpf)
[2022-08-08 18:06] LABS: Troponin I 0.016 ng/mL (< 0.028)
== END 2022-08-08 18:34 | disposition home or self-care (01) ==
LOC: ERS 14:06
DX: R07.9 Chest pain, unspecified (principal); E11.9 Type 2 diabetes mellitus without complications; E78.00 Pure hypercholesterolemia, unspecified; I10 Essential (primary) hypertension; Z79.899 Other long term (current) drug therapy
CPT/HCPCS: 36415; 71045; 80053; 82550; 83690; 83880; 84484; 85025; 93005

== ENCOUNTER 2023-01-17 11:45 | Outpatient (CLI) | payer OTHER | END 2023-01-17 11:46 | disposition home or self-care (01) | LOC: SCSRAD 11:45 | PROVIDERS: ATTEND Family Medicine | DX: R05.9 Cough, unspecified (principal); J98.4 Other disorders of lung | CPT/HCPCS: 71046 ==

== ENCOUNTER 2023-01-20 10:45 | Outpatient (CLI) | payer OTHER | END 2023-01-20 10:46 | disposition home or self-care (01) | LOC: SCSRAD 10:45 | PROVIDERS: ATTEND Family Medicine | DX: R05.1 Acute cough (principal); J98.8 Other specified respiratory disorders | CPT/HCPCS: 36415; 71046; 85025 ==

== ENCOUNTER 2023-01-21 09:47 | Inpatient (IN) | payer OTHER, MEDICAID ==
[~2023-01-21 09:47] MED LIST: Heparin 10,000 UNITS/ 10 ML VIAL ONE
[2023-01-21] MEDS ORDERED: Magnesium 2 GM/50 ML BAG (IN WATER) ONE (11:00)
[2023-01-21] MEDS ORDERED: predniSONE 20 MG TAB ONE ×2 (11:00)
[2023-01-21] MEDS ORDERED: Albuterol 2.5 MG/0.5 ML NEB ONE (11:08)
[2023-01-21] MEDS ORDERED: Ipratropium/Albuterol 3 ML NEB ONE (11:08)
[2023-01-21 11:30] LABS: SARS-CoV-2 NAA Rapid Test Not Detected (NotDetected)
[2023-01-21 12:14] LABS: ALT (SGPT) 12 U/L (8-55); AST (SGOT) 18 U/L (5-34); Albumin 3.7 g/dL (3.4-4.8); Alkaline Phosphatase 113 U/L (40-110); Anion Gap 18 mmol/L (10-20); BUN (Urea Nitrogen) 37 mg/dL (9.8-20.1); Bilirubin, Total 0.3 mg/dL (0.2-1.2); Calc. Creatinine Clearance 0 mL/min (70-130); Calcium 8.7 mg/dL (7.8-10.44); Carbon Dioxide 27 mmol/L (23-31); Chloride 94 mmol/L (98-107); Estimated GFR 7; Globulin 2.7 g/dL (2.4-3.5); Glucose 310 mg/dL (83-110); Potassium 3.6 mmol/L (3.5-5.1); Protein, Total 6.4 g/dL (5.8-8.1); Sodium 135 mmol/L (136-145)
[2023-01-21] MEDS ORDERED: cefTRIAXone (ROCEPHIN) 1 GM VIAL ONE (12:35)
[2023-01-21] MEDS ORDERED: Dextrose 5% in Water 1,000 ML IV PRN (12:42)
[2023-01-21] MEDS ORDERED: Dextrose 50% Abboject 50 ML SYRINGE SLOW IVP PRN (12:42)
[2023-01-21] MEDS ORDERED: Glucagon 1 MG/ML KIT IM PRN (12:42)
[2023-01-21] MEDS ORDERED: Acetaminophen 325 MG TAB PO PRN (12:42)
[2023-01-21] MEDS ORDERED: Ondansetron ODT 4 MG TAB PO PRN (12:42)
[2023-01-21] MEDS ORDERED: Ipratropium/Albuterol 3 ML NEB NEB PRN (12:46)
[2023-01-21 12:58] LABS: #Eosinphils 0.1 thou/uL (0.0-0.7); #Monocytes 0.5 thou/uL (0.11-0.59); #Neutrophils 6.6 thou/uL (1.40-6.50); %Basophils 0.4 % (0.0-1.0); %Eosinophils 0.6 % (0.0-10.0); %Lymphocytes 13.9 % (21.0-51.0); %Neutrophils 77.3 % (42.0-75.0); Hematocrit 30.5 % (36.0-47.0); Hemoglobin 10.9 g/dL (12.0-16.0); Mean Corpuscular HGB CONC 35.7 g/dL (32.0-36.0); Mean Corpuscular Hemoglobin 34.5 pg (27.0-31.0); Mean Corpuscular Volume 96.5 fl (78.0-98.0); Mean Platelet Volume 10.9 fL (7.4-10.4); Platelet Count 197 10x3/uL (130-400); RBC Distribution Width 13.6 % (11.5-14.5); Red Blood Cell (RBC) Count 3.16 mill/uL (4.20-5.40); White Blood Cell (WBC) Count 8.5 10x3/uL (4.8-10.8)
[2023-01-21] MEDS ORDERED: Azithromycin 500 MG VIAL ONE (13:01)
[2023-01-21 14:57] VITALS: BMI 41.3
[2023-01-21] MEDS: Azithromycin 500 MG in Sodium Chloride 0.9% 250 ML 250 ML IVPB SCH (15:05)
[2023-01-21] MEDS: Insulin Regular 300 UNITS/3 ML VIAL SC PRN ×2 (16:04→19:50)
[2023-01-21] MEDS: Heparin 5,000 UNITS/ML VIAL SC SCH (19:46)
[2023-01-21] MEDS ORDERED: Famotidine 20 MG TAB PO SCH (21:00)
[2023-01-21] MEDS: Mometasone 200 MCG/Formoterol 5 MCG 120 PUFF INHALER INH SCH (21:48)
[2023-01-21 22:47] LABS: HBSAg Index 0.23 S/CO (0-0.99); Hep B Core Total Ab Non-Reactive (NonReactive); Hep B Surf Ag Non-Reactive S/CO (NonReactive); Hep C IgG Ab Non-Reactive S/CO (NonReactive); Hep C Index 0.03 S/CO (0-0.79)
[2023-01-21 22:57] LABS: HBSAB Concentration 29.05 mIU/mL; Hep B Surf AB Reactive (NonReactive)
[2023-01-22] MEDS: Insulin Regular 300 UNITS/3 ML VIAL SC PRN ×3 (06:03→16:51)
[2023-01-22 06:50] LABS: Actual Bicarbonate (HCO3v) 29.3 mEq/L (22-28); Base Excess 5.4 mEq/L (-2.0 to +3.0); Calcium, Ionized (venous) 1.04 mmol/L (1.16-1.32); Chloride (VBG) 97 mmol/L (98-106); Hematocrit-VBG 32 % (36.0-47.0); Hemoglobin (Hb) 10.9 g/dL (11.7-16.1); Potassium (VBG) 3.39 mmol/L (3.70-5.30); Sodium 133.8 mmol/L (133-146)
[2023-01-22 06:57] LABS: #Monocytes 0.6 thou/uL (0.11-0.59); #Neutrophils 7.4 thou/uL (1.40-6.50); %Basophils 0.3 % (0.0-1.0); %Eosinophils 0.1 % (0.0-10.0); %Lymphocytes 12.6 % (21.0-51.0); %Monocytes 6.4 % (0.0-10.0); Hematocrit 29.7 % (36.0-47.0); Hemoglobin 10.1 g/dL (12.0-16.0); Mean Corpuscular Hemoglobin 31.3 pg (27.0-31.0); Mean Platelet Volume 10.6 fL (7.4-10.4); Platelet Count 201 10x3/uL (130-400); RBC Distribution Width 13.6 % (11.5-14.5); Red Blood Cell (RBC) Count 3.23 mill/uL (4.20-5.40); White Blood Cell (WBC) Count 9.3 10x3/uL (4.8-10.8)
[2023-01-22 07:26] LABS: Anion Gap 13 mmol/L (10-20); BUN (Urea Nitrogen) 16 mg/dL (9.8-20.1); Calc. Creatinine Clearance 19 mL/min (70-130); Calcium 8.7 mg/dL (7.8-10.44); Carbon Dioxide 29 mmol/L (23-31); Chloride 97 mmol/L (98-107); Estimated GFR 15; Glucose 189 mg/dL (83-110); Potassium 3.4 mmol/L (3.5-5.1); Sodium 136 mmol/L (136-145)
[2023-01-22] MEDS: Mometasone 200 MCG/Formoterol 5 MCG 120 PUFF INHALER INH SCH ×2 (07:30→18:42)
[2023-01-22] MEDS: Heparin 5,000 UNITS/ML VIAL SC SCH ×2 (09:24→21:58)
[2023-01-22] MEDS: predniSONE 20 MG TAB PO SCH (09:26)
[2023-01-22] MEDS: NIFEdipine XL 30 MG TAB PO SCH ×2 (09:28→21:57)
[2023-01-22] MEDS: cefTRIAXone\\ROCEPHIN 1 GM in Sodium Chloride 0.9% 100 ML IVPB SCH (12:34)
[2023-01-22] MEDS: Azithromycin 500 MG in Sodium Chloride 0.9% 250 ML 250 ML IVPB SCH (12:34)
[2023-01-22] MEDS ORDERED: Insulin Regular 300 UNITS/3 ML VIAL SC PRN (14:00)
[2023-01-22] MEDS: Insulin NPH Human Isophane 100 UNITS/ML (10 ML VIAL) SC SCH (16:50)
[2023-01-22] MEDS: Ipratropium/Albuterol 3 ML NEB NEB SCH (18:42)
[2023-01-22] MEDS: Primidone 50 MG TAB PO SCH (21:57)
[2023-01-22] MEDS: Sertraline 25 MG TAB PO SCH (21:57)
[2023-01-22] MEDS: Famotidine 20 MG TAB PO SCH (21:57)
[2023-01-23] MEDS: Ipratropium/Albuterol 3 ML NEB NEB SCH ×5 (01:04→23:46)
[2023-01-23] MEDS ORDERED: Benzonatate 100 MG CAP PO PRN (04:35)
[2023-01-23] MEDS ORDERED: GUAIFENESIN SF SOLN 200 MG/10 ML UDCUP PO PRN (04:35)
[2023-01-23 06:59] LABS: #Basophils 0.1 thou/uL (0.0-0.2); #Monocytes 0.8 thou/uL (0.11-0.59); #Neutrophils 7.8 thou/uL (1.40-6.50); %Basophils 0.5 % (0.0-1.0); %Eosinophils 0.1 % (0.0-10.0); %Lymphocytes 18.2 % (21.0-51.0); %Monocytes 7.2 % (0.0-10.0); %Neutrophils 73.6 % (42.0-75.0); Hematocrit 29.3 % (36.0-47.0); Hemoglobin 10.4 g/dL (12.0-16.0); Mean Corpuscular HGB CONC 35.5 g/dL (32.0-36.0); Mean Corpuscular Hemoglobin 33.9 pg (27.0-31.0); Mean Platelet Volume 11.1 fL (7.4-10.4); Platelet Count 206 10x3/uL (130-400); RBC Distribution Width 13.7 % (11.5-14.5); Red Blood Cell (RBC) Count 3.07 mill/uL (4.20-5.40); White Blood Cell (WBC) Count 10.5 10x3/uL (4.8-10.8)
[2023-01-23 07:43] LABS: Mean Corpuscular Volume 95.4 fl (78.0-98.0)
[2023-01-23] MEDS: Mometasone 200 MCG/Formoterol 5 MCG 120 PUFF INHALER INH SCH ×2 (07:52→19:22)
[2023-01-23] MEDS: Insulin NPH Human Isophane 100 UNITS/ML (10 ML VIAL) SC SCH ×3 (08:02→20:55)
[2023-01-23] MEDS: Heparin 5,000 UNITS/ML VIAL SC SCH ×2 (08:02→20:54)
[2023-01-23 08:18] LABS: Anion Gap 14 mmol/L (10-20); BUN (Urea Nitrogen) 35 mg/dL (9.8-20.1); Calc. Creatinine Clearance 12 mL/min (70-130); Calcium 8.8 mg/dL (7.8-10.44); Carbon Dioxide 28 mmol/L (23-31); Chloride 95 mmol/L (98-107); Estimated GFR 9; Glucose 295 mg/dL (83-110); Potassium 3.5 mmol/L (3.5-5.1); Sodium 133 mmol/L (136-145)
[2023-01-23] MEDS ORDERED: Heparin 10,000 UNITS/ 10 ML VIAL ONE (11:22)
[2023-01-23] MEDS: predniSONE 20 MG TAB PO SCH (12:52)
[2023-01-23] MEDS: NIFEdipine XL 30 MG TAB PO SCH ×2 (12:52→20:52)
[2023-01-23] MEDS: Azithromycin 500 MG in Sodium Chloride 0.9% 250 ML 250 ML IVPB SCH (12:55)
[2023-01-23] MEDS: cefTRIAXone\\ROCEPHIN 1 GM in Sodium Chloride 0.9% 100 ML IVPB SCH (12:55)
[2023-01-23] MEDS: Insulin Regular 300 UNITS/3 ML VIAL SC PRN (16:34)
[2023-01-23] MEDS: Sertraline 25 MG TAB PO SCH (20:52)
[2023-01-23] MEDS: Famotidine 20 MG TAB PO SCH (20:53)
[2023-01-23] MEDS: Primidone 50 MG TAB PO SCH (20:53)
[2023-01-24] MEDS: Insulin Regular 300 UNITS/3 ML VIAL SC PRN ×3 (05:04→17:47)
[2023-01-24] MEDS: Ipratropium/Albuterol 3 ML NEB NEB SCH ×2 (06:44→11:58)
[2023-01-24] MEDS: Mometasone 200 MCG/Formoterol 5 MCG 120 PUFF INHALER INH SCH (06:46)
[2023-01-24] MEDS ORDERED: predniSONE 20 MG TAB PO SCH (08:00)
[2023-01-24 08:02] VITALS: TEMP 98.3
[2023-01-24] MEDS: NIFEdipine XL 30 MG TAB PO SCH (08:22)
[2023-01-24] MEDS: Heparin 5,000 UNITS/ML VIAL SC SCH (08:23)
[2023-01-24] MEDS: Insulin NPH Human Isophane 100 UNITS/ML (10 ML VIAL) SC SCH (08:23)
[2023-01-24] MEDS ORDERED: Insulin NPH Human Isophane 100 UNITS/ML (10 ML VIAL) SC SCH (09:00)
[2023-01-24] MEDS: cefTRIAXone\\ROCEPHIN 1 GM in Sodium Chloride 0.9% 100 ML IVPB SCH (13:51)
[2023-01-24] MEDS: Azithromycin 500 MG in Sodium Chloride 0.9% 250 ML 250 ML IVPB SCH (15:18)
[2023-01-24 16:27] VITALS: BP 123/65
== END 2023-01-24 17:50 | disposition home or self-care (01) | DRG 193 ==
LOC: ERS 09:47 → T4-A 12:47
PROVIDERS: ADMIT Internal Medicine; ATTEND Internal Medicine
DX: J18.9 Pneumonia, unspecified organism (principal); J96.01 Acute respiratory failure with hypoxia; N18.6 End stage renal disease; E87.1 Hypo-osmolality and hyponatremia; Z68.41 Body mass index [BMI] 40.0-44.9, adult; J44.1 Chronic obstructive pulmonary disease with (acute) exacerbation; J44.0 Chronic obstructive pulmonary disease with (acute) lower respiratory infection; I13.2 Hypertensive heart and chronic kidney disease with heart failure and with stage 5 chronic kidney disease, or end stage renal disease; E11.22 Type 2 diabetes mellitus with diabetic chronic kidney disease; E78.00 Pure hypercholesterolemia, unspecified; F32.A Depression, unspecified; I50.9 Heart failure, unspecified; D63.1 Anemia in chronic kidney disease; G25.0 Essential tremor; E66.9 Obesity, unspecified; Z99.2 Dependence on renal dialysis; Z79.899 Other long term (current) drug therapy; Z98.890 Other specified postprocedural states; Z88.8 Allergy status to other drugs, medicaments and biological substances; Z79.4 Long term (current) use of insulin; Z79.51 Long term (current) use of inhaled steroids; Z20.822 Contact with and (suspected) exposure to COVID-19
CPT/HCPCS: 36415; 36416; 71045; 71250; 80048; 80053; 82805; 83605; 83880; 84145; 85025; 86140; 86704; 87040; 93005; 94640; 96365; 96366; 96368; J0456; J0696; J1644; J1815; J3475; J3490; J7050; J7512; J7611; J7620; Q0162

== ENCOUNTER 2023-06-16 13:04 | Emergency (ER) | payer OTHER, MEDICAID ==
[2023-06-16 14:49] LABS: #Basophils 0.1 thou/uL (0.0-0.2); #Eosinphils 0.1 thou/uL (0.0-0.7); #Monocytes 0.8 thou/uL (0.11-0.59); #Neutrophils 6.5 thou/uL (1.40-6.50); %Basophils 0.5 % (0.0-1.0); %Eosinophils 1.2 % (0.0-10.0); %Lymphocytes 20.1 % (21.0-51.0); %Monocytes 8.8 % (0.0-10.0); Hematocrit 33.7 % (36.0-47.0); Hemoglobin 11.5 g/dL (12.0-16.0); Mean Corpuscular HGB CONC 34.1 g/dL (32.0-36.0); Mean Corpuscular Hemoglobin 30.7 pg (27.0-31.0); Mean Corpuscular Volume 90.1 fl (78.0-98.0); Mean Platelet Volume 10.3 fL (7.4-10.4); Platelet Count 271 10x3/uL (130-400); RBC Distribution Width 13.1 % (11.5-14.5); Red Blood Cell (RBC) Count 3.74 mill/uL (4.20-5.40); White Blood Cell (WBC) Count 9.4 10x3/uL (4.8-10.8)
[2023-06-16 15:12] LABS: ALT (SGPT) 11 U/L (8-55); AST (SGOT) 15 U/L (5-34); Albumin 3.1 g/dL (3.4-4.8); Alkaline Phosphatase 113 U/L (40-110); Anion Gap 15 mmol/L (10-20); BUN (Urea Nitrogen) 29 mg/dL (9.8-20.1); Bilirubin, Total 0.3 mg/dL (0.2-1.2); Calc. Creatinine Clearance 0 mL/min (70-130); Calcium 8.3 mg/dL (7.8-10.44); Carbon Dioxide 29 mmol/L (23-31); Chloride 95 mmol/L (98-107); Estimated GFR 8; Globulin 3.1 g/dL (2.4-3.5); Glucose 121 mg/dL (83-110); Potassium 3.5 mmol/L (3.5-5.1); Protein, Total 6.2 g/dL (5.8-8.1); Sodium 135 mmol/L (136-145)
[2023-06-16 15:23] LABS: Troponin I 0.055 ng/mL (< 0.028)
== END 2023-06-16 17:53 | disposition home or self-care (01) ==
LOC: ERS 13:04
DX: J18.9 Pneumonia, unspecified organism (principal); I12.9 Hypertensive chronic kidney disease with stage 1 through stage 4 chronic kidney disease, or unspecified chronic kidney disease; E11.22 Type 2 diabetes mellitus with diabetic chronic kidney disease; N18.9 Chronic kidney disease, unspecified; J45.909 Unspecified asthma, uncomplicated; E78.00 Pure hypercholesterolemia, unspecified; Z79.4 Long term (current) use of insulin; Z99.2 Dependence on renal dialysis; Z79.899 Other long term (current) drug therapy
CPT/HCPCS: 36415; 71045; 80053; 84484; 85025; 93005

== ENCOUNTER 2024-01-19 13:04 | Outpatient (CLI) | payer OTHER | END 2024-01-19 13:05 | disposition home or self-care (01) | LOC: BICRAD 13:04 | PROVIDERS: ATTEND Nurse Practitioner Family | DX: R09.02 Hypoxemia (principal); R91.8 Other nonspecific abnormal finding of lung field; J90 Pleural effusion, not elsewhere classified | CPT/HCPCS: 71046 ==

== ENCOUNTER 2024-02-13 09:03 | Outpatient (CLI) | payer OTHER | END 2024-02-13 09:04 | disposition home or self-care (01) | LOC: RAD 09:03 | PROVIDERS: ATTEND Internal Medicine Critical Care Medicine | DX: R06.00 Dyspnea, unspecified (principal) | CPT/HCPCS: 71046 ==

== ENCOUNTER 2024-03-12 09:46 | Outpatient (CLI) | payer MEDICARE | END 2024-03-12 09:47 | disposition home or self-care (01) | LOC: RAD 09:46 | PROVIDERS: ATTEND Internal Medicine Critical Care Medicine | DX: R06.00 Dyspnea, unspecified (principal); J18.1 Lobar pneumonia, unspecified organism | CPT/HCPCS: 71046 ==

== ENCOUNTER 2024-04-22 16:31 | Emergency (ER) | payer MEDICARE ==
[2024-04-22] MEDS ORDERED: Dextrose 10% in Water 250 ML ONE (17:31)
[2024-04-22 17:39] LABS: #Basophils 0.08 10x3/uL (0.0-0.2); %Eosinophils 1.6 % (0.0-10.0); %Lymphocytes 15.7 % (21.0-51.0); %Monocytes 9.8 % (0.0-10.0); %Neutrophils 71.5 % (42.0-75.0); Hematocrit 36.3 % (36.0-47.0); Hemoglobin 12.1 g/dL (12.0-16.0); Mean Corpuscular HGB CONC 33.3 g/dL (32.0-36.0); Mean Corpuscular Hemoglobin 30.7 pg (27.0-31.0); Mean Corpuscular Volume 92.1 fL (78.0-98.0); Mean Platelet Volume 10.9 fL (7.4-10.4); Platelet Count 207 10x3/uL (130-400); RBC Distribution Width 13.9 % (11.5-14.5); Red Blood Cell (RBC) Count 3.94 mill/uL (4.20-5.40)
[2024-04-22 18:02] LABS: Troponin I 0.034 ng/mL (< 0.028)
[2024-04-22 18:13] LABS: ALT (SGPT) 15 U/L (8-55); AST (SGOT) 23 U/L (5-34); Albumin 3.5 g/dL (3.4-4.8); Alkaline Phosphatase 141 U/L (40-110); Anion Gap 15 mmol/L (10-20); BUN (Urea Nitrogen) 11 mg/dL (9.8-20.1); Bilirubin, Total 0.3 mg/dL (0.2-1.2); Calc. Creatinine Clearance 0 mL/min (70-130); Calcium 9.7 mg/dL (7.8-10.44); Carbon Dioxide 33 mmol/L (23-31); Chloride 95 mmol/L (98-107); Estimated GFR 35; Globulin 3.7 g/dL (2.4-3.5); Glucose 45 mg/dL (83-110); Magnesium 2.1 mg/dL (1.6-2.6); Potassium 3.5 mmol/L (3.5-5.1); Protein, Total 7.2 g/dL (5.8-8.1); Sodium 139 mmol/L (136-145)
== END 2024-04-22 19:52 | disposition home or self-care (01) ==
LOC: ERS 16:31
DX: E11.649 Type 2 diabetes mellitus with hypoglycemia without coma (principal); I12.0 Hypertensive chronic kidney disease with stage 5 chronic kidney disease or end stage renal disease; E11.22 Type 2 diabetes mellitus with diabetic chronic kidney disease; N18.6 End stage renal disease; J45.909 Unspecified asthma, uncomplicated; E78.00 Pure hypercholesterolemia, unspecified; Z99.2 Dependence on renal dialysis; Z55.6 Problems related to health literacy; Z79.51 Long term (current) use of inhaled steroids; Z79.4 Long term (current) use of insulin; Z79.899 Other long term (current) drug therapy
CPT/HCPCS: 36415; 36416; 80053; 83735; 83880; 84484; 85025; 93005; 96374

== ENCOUNTER 2024-06-08 09:48 | Emergency (ER) | payer OTHER ==
[2024-06-08 10:49] LABS: #Basophils 0.04 10x3/uL (0.0-0.2); %Basophils 0.6 % (0.0-1.0); %Lymphocytes 20.6 % (21.0-51.0); %Monocytes 6.9 % (0.0-10.0); %Neutrophils 69.6 % (42.0-75.0); Hematocrit 31.3 % (36.0-47.0); Hemoglobin 10.4 g/dL (12.0-16.0); Mean Corpuscular HGB CONC 33.2 g/dL (32.0-36.0); Mean Corpuscular Hemoglobin 29.5 pg (27.0-31.0); Mean Corpuscular Volume 88.9 fL (78.0-98.0); Platelet Count 161 10x3/uL (130-400); RBC Distribution Width 13.8 % (11.5-14.5); Red Blood Cell (RBC) Count 3.52 mill/uL (4.20-5.40)
[2024-06-08] MEDS ORDERED: Albuterol 2.5 MG (3 mL) NEB ONE (11:00)
[2024-06-08] MEDS ORDERED: Ipratropium Bromide 2.5 ml Neb ONE (11:01)
[2024-06-08 11:27] LABS: Chloride 96 mmol/L (98-107); Potassium 5.2 mmol/L (3.5-5.1); Sodium 135 mmol/L (136-145)
[2024-06-08 11:32] LABS: ALT (SGPT) 9 U/L (Less than 34); AST (SGOT) 20 U/L (11-34); Albumin 3.4 g/dL (3.1-4.5); Alkaline Phosphatase 130 U/L (40-110); Anion Gap 18 mmol/L (10-20); BUN (Urea Nitrogen) 41 mg/dL (9.8-20.1); Bilirubin, Total 0.3 mg/dL (0.3-1.2); Calc. Creatinine Clearance 0 mL/min (70-130); Calcium 8.6 mg/dL (7.8-10.44); Carbon Dioxide 25 mmol/L (23-31); Estimated GFR 8; Globulin 3.3 g/dL (2.4-3.5); Glucose 295 mg/dL (83-110); Protein, Total 6.7 g/dL (5.8-8.1)
[2024-06-08 11:35] LABS: Troponin I 0.052 ng/mL (< 0.028)
[2024-06-08 14:02] LABS: HBSAB Concentration Less than 8.00 mIU/mL; HBsAg Index 0.23 S/CO (0-0.99); Hep B Core Total Ab NONREACTIVE (NonReactive); Hep B Core Total Index 0.07 S/CO (0-0.79); Hep B Surf AB NONREACTIVE (NonReactive); Hep B Surf Ag NONREACTIVE S/CO (NonReactive); Hep C IgG Ab NONREACTIVE S/CO (NonReactive); Hep C Index 0.06 S/CO (0-0.79)
== END 2024-06-08 19:30 | disposition home or self-care (01) ==
LOC: ERS 09:48
DX: R06.02 Shortness of breath (principal); I12.0 Hypertensive chronic kidney disease with stage 5 chronic kidney disease or end stage renal disease; E11.22 Type 2 diabetes mellitus with diabetic chronic kidney disease; N18.6 End stage renal disease; R09.02 Hypoxemia; E78.5 Hyperlipidemia, unspecified; Z99.2 Dependence on renal dialysis
CPT/HCPCS: 71045; 80053; 83880; 84484; 85025; 86704; 86706; 86803; 87340; 93005; 94760; J7644; 36415; J7611

== ENCOUNTER 2024-06-23 20:42 | Inpatient (IN) | payer OTHER ==
[2024-06-23] MEDS ORDERED: Labetalol HCl 100 MG/20 ML VIAL ONE (21:01)
[2024-06-23] MEDS ORDERED: Ondansetron PF 4 MG/2 ML Vial ONE (21:01)
[2024-06-23 21:05] LABS: #Basophils 0.04 10x3/uL (0.0-0.2); %Basophils 0.2 % (0.0-1.0); %Eosinophils 0.8 % (0.0-10.0); %Lymphocytes 2.3 % (21.0-51.0); %Monocytes 3.8 % (0.0-10.0); %Neutrophils 91.9 % (42.0-75.0); Hematocrit 30.8 % (36.0-47.0); Hemoglobin 10.2 g/dL (12.0-16.0); Mean Corpuscular HGB CONC 33.1 g/dL (32.0-36.0); Mean Corpuscular Hemoglobin 29.7 pg (27.0-31.0); Mean Corpuscular Volume 89.5 fL (78.0-98.0); Platelet Count 187 10x3/uL (130-400); RBC Distribution Width 15.6 % (11.5-14.5); Red Blood Cell (RBC) Count 3.44 mill/uL (4.20-5.40)
[2024-06-23] MEDS ORDERED: Vancomycin 1 GM/200 ML (FROZEN) BAG ONE (21:20)
[2024-06-23] MEDS ORDERED: Sodium Chloride 0.9% 100 ML ONE (21:20)
[2024-06-23] MEDS ORDERED: Cefepime 2 GM VIAL ONE (21:20)
[2024-06-23 21:26] LABS: Actual Bicarbonate (HCO3a) 29.7 mEq/L (22-28); Analyzer IN Cardio ER; Base Excess (BEa) 5.7 mEq/L (-2.0 to +3.0); CO2 Tension 41.3 mmHg (35.0-45.0); Calcium, Ionized (arterial) 1.13 mmol/L (1.12-1.30); Carboxyhemoglobin (COHb) 1.8 gm% (0.0-3.0); Hematocrit-ABG 31 % (36.0-47.0); Hemoglobin (Hb) 10.6 g/dL (12.0-16.0); Potassium - ABG Lab 4.04 mmol/L (3.70-5.30); pH, Arterial 7.475 (7.35-7.45)
[2024-06-23 21:27] LABS: ALT (SGPT) 10 U/L (Less than 34); AST (SGOT) 20 U/L (11-34); Albumin 3.3 g/dL (3.1-4.5); Alkaline Phosphatase 132 U/L (40-110); Anion Gap 17 mmol/L (10-20); BUN (Urea Nitrogen) 40 mg/dL (9.8-20.1); Bilirubin, Total 0.5 mg/dL (0.3-1.2); Calc. Creatinine Clearance 0 mL/min (70-130); Calcium 9.4 mg/dL (7.8-10.44); Carbon Dioxide 30 mmol/L (23-31); Chloride 95 mmol/L (98-107); Estimated GFR 10; Globulin 3.6 g/dL (2.4-3.5); Glucose 188 mg/dL (83-110); Potassium 4.1 mmol/L (3.5-5.1); Protein, Total 6.9 g/dL (5.8-8.1); Sodium 138 mmol/L (136-145)
[2024-06-23 21:31] LABS: Troponin I 0.066 ng/mL (< 0.028)
[2024-06-23] MEDS ORDERED: hydrALAZINE 20 MG/ML VIAL ONE (21:39)
[2024-06-23] MEDS ORDERED: Promethazine HCl 25 MG/ML VIAL ONE (21:49)
[2024-06-23 21:54] LABS: O2 Tension (PaO2), arterial 49.7 mmHg (> 70.0); Puncture Site Left Brachial artery
[2024-06-23 21:55] LABS: ALV-art Gradient 611.675 mmHg (0-20)
[2024-06-23 23:18] LABS: HBSAB Concentration Less than 8.00 mIU/mL; HBsAg Index 0.22 S/CO (0-0.99); Hep B Core Total Ab NONREACTIVE (NonReactive); Hep B Core Total Index 0.08 S/CO (0-0.79); Hep B Surf AB NONREACTIVE (NonReactive); Hep B Surf Ag NONREACTIVE S/CO (NonReactive); Hep C IgG Ab NONREACTIVE S/CO (NonReactive); Hep C Index 0.07 S/CO (0-0.79)
[2024-06-23] MEDS ORDERED: Aspirin Chewable 81 MG TAB ONE (23:57)
[2024-06-24] MEDS ORDERED: Dextrose 5% in Water 1,000 ML IV PRN (00:14)
[2024-06-24] MEDS ORDERED: Dextrose 50% Abboject 50 ML SYRINGE SLOW IVP PRN (00:14)
[2024-06-24] MEDS ORDERED: Guaifenesin DM 100-10/5 ML UDCUP PO PRN (00:14)
[2024-06-24] MEDS ORDERED: Glucagon 1 MG/ML KIT IM PRN (00:14)
[2024-06-24] MEDS ORDERED: hydrALAZINE 20 MG/ML VIAL ONE (00:35)
[2024-06-24] MEDS: hydrALAZINE 20 MG/ML VIAL SLOW IVP PRN (00:44)
[2024-06-24] MEDS ORDERED: Acetaminophen 325 MG TAB ONE (01:16)
[2024-06-24] MEDS: Acetaminophen 325 MG TAB PO PRN (01:20)
[2024-06-24 02:50] LABS: #Basophils 0.04 10x3/uL (0.0-0.2); #Eosinophils Less than 0.03 10x3/uL (0.0-0.7); %Basophils 0.2 % (0.0-1.0); %Lymphocytes 5.2 % (21.0-51.0); %Monocytes 3.7 % (0.0-10.0); %Neutrophils 88.6 % (42.0-75.0); Hematocrit 26.6 % (36.0-47.0); Hemoglobin 9.2 g/dL (12.0-16.0); Mean Corpuscular HGB CONC 34.6 g/dL (32.0-36.0); Mean Corpuscular Hemoglobin 31.2 pg (27.0-31.0); Mean Corpuscular Volume 90.2 fL (78.0-98.0); Platelet Count 177 10x3/uL (130-400); RBC Distribution Width 15.2 % (11.5-14.5); Red Blood Cell (RBC) Count 2.95 mill/uL (4.20-5.40)
[2024-06-24] MEDS ORDERED: Pantoprazole 40 MG VIAL ONE (03:16)
[2024-06-24] MEDS ORDERED: Azithromycin 500 MG VIAL ONE (03:16)
[2024-06-24] MEDS: Pantoprazole 40 MG VIAL IVP SCH ×2 (03:35→09:20)
[2024-06-24] MEDS: Azithromycin 500 MG in Sodium Chloride 0.9% 250 ML 250 ML IVPB SCH (03:36)
[2024-06-24 04:13] LABS: Troponin I 0.237 ng/mL (< 0.028)
[2024-06-24 04:14] LABS: Anion Gap 17 mmol/L (10-20); BUN (Urea Nitrogen) 11 mg/dL (9.8-20.1); Calc. Creatinine Clearance 0 mL/min (70-130); Calcium 8.3 mg/dL (7.8-10.44); Carbon Dioxide 32 mmol/L (23-31); Chloride 98 mmol/L (98-107); Estimated GFR 33; Glucose 107 mg/dL (83-110); Potassium 3.6 mmol/L (3.5-5.1); Sodium 143 mmol/L (136-145)
[2024-06-24 04:15] VITALS: BMI 30.4
[2024-06-24] MEDS: Piperacillin/Tazobactam 3.375 GM in Sodium Chloride 0.9% 100 ML IVPB SCH (04:50)
[2024-06-24] MEDS: Isosorbide Dinitrate 5 MG TAB PO SCH ×2 (05:59→09:21)
[2024-06-24] MEDS ORDERED: Vancomycin Hemodialysis Sliding Scale FS SCH (07:00)
[2024-06-24 07:11] LABS: Troponin I 0.251 ng/mL (< 0.028)
[2024-06-24 07:40] LABS: Vancomycin, Trough 9.4 ug/mL
[2024-06-24] MEDS: Arformoterol 15 MCG/2 ML NEB NEB SCH (07:49)
[2024-06-24] MEDS: Budesonide 0.5 MG/2 ML NEB NEB SCH (07:52)
[2024-06-24] MEDS: Heparin 5,000 UNITS/ML VIAL SC SCH (09:20)
[2024-06-24] MEDS: Nitroglycerin 2% Ointment 1 INCH/1 GM Packet TOP SCH (09:20)
[2024-06-24] MEDS: Metoprolol Succinate XL 25 MG ER.TAB PO SCH (09:21)
[2024-06-24] MEDS: Lisinopril 10 MG TAB PO SCH (09:21)
[2024-06-24] MEDS: NIFEdipine XL 60 MG ER.TAB PO SCH (09:21)
[2024-06-24] MEDS ORDERED: Vancomycin 1 GM in Premix 1 BAG IVPB SCH (10:00)
[2024-06-24] MEDS: Ciprofloxacin 0.3% Ophth Soln 2.5 ml Bottle EA EYE SCH (10:06)
[2024-06-24] MEDS: EPOETIN ALFA-EPBX (ESRD) 10,000 UNITS/ML VIAL IVP SCH (12:55)
[2024-06-24] MEDS: Albumin 25% 25 GM (100 mL) BOT IVPB PRN (14:48)
[2024-06-24] MEDS: Vancomycin 1 GM in Premix 1 BAG IVPB SCH (18:41)
[2024-06-24] MEDS: Sertraline 25 MG TAB PO SCH (20:44)
[2024-06-24] MEDS: methylPREDNISolone Sod Succ 40 MG VIAL IVP SCH (20:44)
[2024-06-24] MEDS: Primidone 50 MG TAB PO SCH (20:44)
[2024-06-24] MEDS: Simvastatin 5 MG TAB PO SCH (20:44)
[2024-06-24] MEDS: Morphine 2 MG/ML VIAL SLOW IVP PRN (22:35)
[2024-06-25 05:43] LABS: #Basophils 0.03 10x3/uL (0.0-0.2); #Eosinophils Less than 0.03 10x3/uL (0.0-0.7); %Basophils 0.3 % (0.0-1.0); %Monocytes 2.6 % (0.0-10.0); %Neutrophils 91.4 % (42.0-75.0); Hematocrit 28.5 % (36.0-47.0); Hemoglobin 9.3 g/dL (12.0-16.0); Mean Corpuscular HGB CONC 32.6 g/dL (32.0-36.0); Mean Corpuscular Hemoglobin 31.5 pg (27.0-31.0); Mean Corpuscular Volume 96.6 fL (78.0-98.0); Mean Platelet Volume 12.4 fL (7.4-10.4); Platelet Count 160 10x3/uL (130-400); RBC Distribution Width 15.9 % (11.5-14.5); Red Blood Cell (RBC) Count 2.95 mill/uL (4.20-5.40)
[2024-06-25 06:10] LABS: ALT (SGPT) 21 U/L (Less than 34); AST (SGOT) 49 U/L (11-34); Albumin 3.3 g/dL (3.1-4.5); Alkaline Phosphatase 137 U/L (40-110); Anion Gap 27 mmol/L (10-20); BUN (Urea Nitrogen) 48 mg/dL (9.8-20.1); Bilirubin, Total 0.6 mg/dL (0.3-1.2); Calc. Creatinine Clearance 0 mL/min (70-130); Calcium 9.2 mg/dL (7.8-10.44); Carbon Dioxide 22 mmol/L (23-31); Chloride 97 mmol/L (98-107); Estimated GFR 11; Globulin 3.3 g/dL (2.4-3.5); Glucose 209 mg/dL (83-110); Potassium 4.9 mmol/L (3.5-5.1); Protein, Total 6.6 g/dL (5.8-8.1); Sodium 141 mmol/L (136-145)
[2024-06-25 06:25] LABS: CRP,High Sensitivity (Inhouse) 33.05 mg/dL (< or = 0.5)
[2024-06-25] MEDS: Insulin Lispro 100 UNIT/ML 10 ML VIAL SC PRN (06:58)
[2024-06-25] MEDS: methylPREDNISolone Sod Succ 40 MG VIAL IVP SCH (20:38)
[2024-06-26 05:22] LABS: #Basophils Less than 0.03 10x3/uL (0.0-0.2); #Eosinophils Less than 0.03 10x3/uL (0.0-0.7); %Basophils 0.1 % (0.0-1.0); %Lymphocytes 5.8 % (21.0-51.0); %Monocytes 2.9 % (0.0-10.0); %Neutrophils 90.7 % (42.0-75.0); Hematocrit 27.2 % (36.0-47.0); Hemoglobin 8.8 g/dL (12.0-16.0); Mean Corpuscular HGB CONC 32.4 g/dL (32.0-36.0); Mean Corpuscular Hemoglobin 30.3 pg (27.0-31.0); Mean Corpuscular Volume 93.8 fL (78.0-98.0); Platelet Count 198 10x3/uL (130-400); RBC Distribution Width 16.2 % (11.5-14.5)
[2024-06-26 05:37] LABS: Anion Gap 29 mmol/L (10-20); BUN (Urea Nitrogen) 81 mg/dL (9.8-20.1); Calc. Creatinine Clearance 9 mL/min (70-130); Calcium 8.8 mg/dL (7.8-10.44); Carbon Dioxide 18 mmol/L (23-31); Chloride 96 mmol/L (98-107); Estimated GFR 8; Glucose 248 mg/dL (83-110); Potassium 5.1 mmol/L (3.5-5.1); Sodium 138 mmol/L (136-145)
[2024-06-26 07:29] LABS: Vancomycin, Trough 23.2 ug/mL
[2024-06-26] MEDS: Ondansetron PF 4 MG/2 ML Vial IVP PRN (09:48)
[2024-06-26] MEDS ORDERED: Vancomycin HCl 250 MG in Sodium Chloride 0.9% 100 ML IVPB SCH (17:00)
[2024-06-27 03:56] LABS: #Basophils Less than 0.03 10x3/uL (0.0-0.2); #Eosinophils Less than 0.03 10x3/uL (0.0-0.7); %Lymphocytes 6.5 % (21.0-51.0); %Monocytes 2.9 % (0.0-10.0); %Neutrophils 89.7 % (42.0-75.0); Hematocrit 27.1 % (36.0-47.0); Hemoglobin 8.9 g/dL (12.0-16.0); Mean Corpuscular HGB CONC 32.8 g/dL (32.0-36.0); Mean Corpuscular Hemoglobin 30.8 pg (27.0-31.0); Mean Corpuscular Volume 93.8 fL (78.0-98.0); Mean Platelet Volume 11.9 fL (7.4-10.4); Platelet Count 215 10x3/uL (130-400); RBC Distribution Width 15.7 % (11.5-14.5); Red Blood Cell (RBC) Count 2.89 mill/uL (4.20-5.40)
[2024-06-27 04:10] LABS: Anion Gap 26 mmol/L (10-20); BUN (Urea Nitrogen) 46 mg/dL (9.8-20.1); Calc. Creatinine Clearance 15 mL/min (70-130); Calcium 8.7 mg/dL (7.8-10.44); Carbon Dioxide 22 mmol/L (23-31); Chloride 95 mmol/L (98-107); Estimated GFR 14; Glucose 322 mg/dL (83-110); Potassium 3.8 mmol/L (3.5-5.1); Sodium 139 mmol/L (136-145)
[2024-06-27] MEDS: Insulin Glargine 30 UNITS/0.3 ML VIAL SC SCH (08:14)
[2024-06-27] MEDS ORDERED: Lactulose 20 GM (30 mL) UDCUP PO PRN (17:03)
[2024-06-27] MEDS: Labetalol HCl 100 MG/20 ML VIAL SLOW IVP PRN (21:46)
[2024-06-28] MEDS: Azithromycin 500 MG VIAL ONE (01:43)
[2024-06-28 04:28] LABS: #Basophils 0.04 10x3/uL (0.0-0.2); %Basophils 0.4 % (0.0-1.0); %Eosinophils 0.3 % (0.0-10.0); %Lymphocytes 18.4 % (21.0-51.0); %Monocytes 9.3 % (0.0-10.0); %Neutrophils 67.4 % (42.0-75.0); Hemoglobin 9.3 g/dL (12.0-16.0); Mean Corpuscular HGB CONC 33.2 g/dL (32.0-36.0); Mean Corpuscular Hemoglobin 30.6 pg (27.0-31.0); Mean Corpuscular Volume 92.1 fL (78.0-98.0); Mean Platelet Volume 11.6 fL (7.4-10.4); Platelet Count 198 10x3/uL (130-400); RBC Distribution Width 15.3 % (11.5-14.5); Red Blood Cell (RBC) Count 3.04 mill/uL (4.20-5.40)
[2024-06-28 05:08] LABS: Anion Gap 21 mmol/L (10-20); BUN (Urea Nitrogen) 63 mg/dL (9.8-20.1); Calc. Creatinine Clearance 11 mL/min (70-130); Calcium 8.6 mg/dL (7.8-10.44); Carbon Dioxide 25 mmol/L (23-31); Chloride 96 mmol/L (98-107); Estimated GFR 10; Glucose 212 mg/dL (83-110); Potassium 3.6 mmol/L (3.5-5.1); Sodium 138 mmol/L (136-145)
[2024-06-28] MEDS: Ipratropium/Albuterol 3 ML NEB NEB PRN (06:45)
[2024-06-28] MEDS: Ciprofloxacin 0.3% Ophth Soln 2.5 ml Bottle EA EYE SCH (12:05)
[2024-06-28] MEDS: Amoxicillin/Potassium Clav 500 MG TAB PO SCH (20:33)
[2024-06-29 04:08] LABS: #Basophils 0.03 10x3/uL (0.0-0.2); %Basophils 0.3 % (0.0-1.0); %Lymphocytes 18.7 % (21.0-51.0); %Monocytes 8.1 % (0.0-10.0); %Neutrophils 68.2 % (42.0-75.0); Hematocrit 27.2 % (36.0-47.0); Hemoglobin 9.5 g/dL (12.0-16.0); Mean Corpuscular HGB CONC 34.9 g/dL (32.0-36.0); Mean Corpuscular Hemoglobin 32.6 pg (27.0-31.0); Mean Corpuscular Volume 93.5 fL (78.0-98.0); Mean Platelet Volume 11.5 fL (7.4-10.4); Platelet Count 207 10x3/uL (130-400); RBC Distribution Width 15.2 % (11.5-14.5); Red Blood Cell (RBC) Count 2.91 mill/uL (4.20-5.40)
[2024-06-29 04:35] LABS: Anion Gap 19 mmol/L (10-20); BUN (Urea Nitrogen) 72 mg/dL (9.8-20.1); Calc. Creatinine Clearance 8 mL/min (70-130); Calcium 8.5 mg/dL (7.8-10.44); Carbon Dioxide 23 mmol/L (23-31); Chloride 96 mmol/L (98-107); Estimated GFR 7; Glucose 328 mg/dL (83-110); Potassium 3.5 mmol/L (3.5-5.1); Sodium 134 mmol/L (136-145)
[2024-06-29] MEDS: Insulin Glargine 30 UNITS/0.3 ML VIAL SC SCH (09:20)
[2024-06-29] MEDS: Amoxicillin/Potassium Clav 500 MG TAB PO SCH (21:07)
[2024-06-30 04:45] LABS: #Basophils 0.07 10x3/uL (0.0-0.2); %Basophils 0.7 % (0.0-1.0); %Eosinophils 1.3 % (0.0-10.0); %Lymphocytes 17.5 % (21.0-51.0); %Monocytes 6.8 % (0.0-10.0); %Neutrophils 68.7 % (42.0-75.0); Hematocrit 27.5 % (36.0-47.0); Hemoglobin 10.2 g/dL (12.0-16.0); Mean Corpuscular HGB CONC 37.1 g/dL (32.0-36.0); Mean Corpuscular Hemoglobin 34.6 pg (27.0-31.0); Mean Corpuscular Volume 93.2 fL (78.0-98.0); Mean Platelet Volume 11.3 fL (7.4-10.4); Platelet Count 207 10x3/uL (130-400); RBC Distribution Width 15.2 % (11.5-14.5); Red Blood Cell (RBC) Count 2.95 mill/uL (4.20-5.40)
[2024-06-30 04:55] LABS: Hemoglobin A1c 6.7 % (4.0-6.0)
[2024-06-30 06:19] LABS: Anion Gap 17 mmol/L (10-20); BUN (Urea Nitrogen) 25 mg/dL (9.8-20.1); Calc. Creatinine Clearance 13 mL/min (70-130); Calcium 8.4 mg/dL (7.8-10.44); Carbon Dioxide 26 mmol/L (23-31); Chloride 98 mmol/L (98-107); Estimated GFR 12; Glucose 225 mg/dL (83-110); Potassium 3.5 mmol/L (3.5-5.1); Sodium 137 mmol/L (136-145)
[2024-06-30] MEDS: Metoprolol Succinate XL 50 MG ER.TAB PO SCH (10:44)
[2024-06-30] MEDS: Isosorbide Dinitrate 20 MG TAB PO SCH (10:44)
[2024-07-01 05:46] LABS: #Basophils 0.04 10x3/uL (0.0-0.2); %Basophils 0.4 % (0.0-1.0); %Eosinophils 1.8 % (0.0-10.0); %Lymphocytes 18.3 % (21.0-51.0); %Neutrophils 66.9 % (42.0-75.0); Hematocrit 28.4 % (36.0-47.0); Hemoglobin 10.1 g/dL (12.0-16.0); Mean Corpuscular HGB CONC 35.6 g/dL (32.0-36.0); Mean Corpuscular Hemoglobin 33.1 pg (27.0-31.0); Mean Corpuscular Volume 93.1 fL (78.0-98.0); Mean Platelet Volume 11.3 fL (7.4-10.4); Platelet Count 225 10x3/uL (130-400); RBC Distribution Width 15.6 % (11.5-14.5); Red Blood Cell (RBC) Count 3.05 mill/uL (4.20-5.40)
[2024-07-01 06:09] LABS: Anion Gap 16 mmol/L (10-20); BUN (Urea Nitrogen) 32 mg/dL (9.8-20.1); Calc. Creatinine Clearance 10 mL/min (70-130); Calcium 8.5 mg/dL (7.8-10.44); Carbon Dioxide 27 mmol/L (23-31); Chloride 100 mmol/L (98-107); Estimated GFR 9; Glucose 65 mg/dL (83-110); Potassium 3.7 mmol/L (3.5-5.1); Sodium 139 mmol/L (136-145)
[2024-07-01] MEDS ORDERED: Heparin 10,000 UNITS/ 10 ML VIAL ONE (10:40)
[2024-07-01] MEDS: Pantoprazole 40 MG DR.TAB PO SCH (14:41)
[2024-07-01 21:13] VITALS: BMI 27.4
[2024-07-02 04:46] LABS: #Basophils 0.05 10x3/uL (0.0-0.2); %Basophils 0.5 % (0.0-1.0); %Eosinophils 1.5 % (0.0-10.0); %Monocytes 9.1 % (0.0-10.0); %Neutrophils 66.1 % (42.0-75.0); Hematocrit 33.8 % (36.0-47.0); Hemoglobin 11.4 g/dL (12.0-16.0); Mean Corpuscular HGB CONC 33.7 g/dL (32.0-36.0); Mean Corpuscular Hemoglobin 31.1 pg (27.0-31.0); Mean Corpuscular Volume 92.3 fL (78.0-98.0); Mean Platelet Volume 11.4 fL (7.4-10.4); Platelet Count 231 10x3/uL (130-400); RBC Distribution Width 16.8 % (11.5-14.5); Red Blood Cell (RBC) Count 3.66 mill/uL (4.20-5.40)
[2024-07-02 05:08] LABS: Anion Gap 15 mmol/L (10-20); BUN (Urea Nitrogen) 14 mg/dL (9.8-20.1); Calc. Creatinine Clearance 14 mL/min (70-130); Carbon Dioxide 26 mmol/L (23-31); Chloride 101 mmol/L (98-107); Estimated GFR 13; Glucose 62 mg/dL (83-110); Potassium 4.2 mmol/L (3.5-5.1); Sodium 138 mmol/L (136-145)
[2024-07-02] MEDS: Insulin Glargine 30 UNITS/0.3 ML VIAL SC SCH (09:32)
[2024-07-02] MEDS: Lisinopril 20 MG TAB PO SCH (09:32)
[2024-07-03 05:16] LABS: Chloride 100 mmol/L (98-107); Potassium 4.9 mmol/L (3.5-5.1); Sodium 131 mmol/L (136-145)
[2024-07-03 05:17] LABS: Glucose 106 mg/dL (83-110)
[2024-07-03 05:19] LABS: Anion Gap 18 mmol/L (10-20); Carbon Dioxide 18 mmol/L (23-31)
[2024-07-03 05:21] LABS: BUN (Urea Nitrogen) 24 mg/dL (9.8-20.1)
[2024-07-03 05:33] LABS: Calc. Creatinine Clearance 9 mL/min (70-130); Estimated GFR 8
[2024-07-03 06:57] LABS: #Basophils 0.03 10x3/uL (0.0-0.2); %Basophils 0.3 % (0.0-1.0); %Eosinophils 2.5 % (0.0-10.0); %Lymphocytes 17.8 % (21.0-51.0); %Monocytes 10.6 % (0.0-10.0); %Neutrophils 66.8 % (42.0-75.0); Hematocrit 33.6 % (36.0-47.0); Hemoglobin 10.9 g/dL (12.0-16.0); Mean Corpuscular HGB CONC 32.4 g/dL (32.0-36.0); Mean Corpuscular Hemoglobin 29.6 pg (27.0-31.0); Mean Corpuscular Volume 91.3 fL (78.0-98.0); Platelet Count 214 10x3/uL (130-400); RBC Distribution Width 16.7 % (11.5-14.5); Red Blood Cell (RBC) Count 3.68 mill/uL (4.20-5.40)
[2024-07-03] MEDS: hydrALAZINE 25 MG TAB PO SCH ×2 (10:12→20:44)
[2024-07-04 05:22] LABS: #Basophils 0.03 10x3/uL (0.0-0.2); %Basophils 0.3 % (0.0-1.0); %Eosinophils 1.1 % (0.0-10.0); %Lymphocytes 20.7 % (21.0-51.0); %Monocytes 12.2 % (0.0-10.0); %Neutrophils 63.9 % (42.0-75.0); Hemoglobin 11.8 g/dL (12.0-16.0); Mean Corpuscular HGB CONC 33.7 g/dL (32.0-36.0); Mean Corpuscular Hemoglobin 30.9 pg (27.0-31.0); Mean Corpuscular Volume 91.6 fL (78.0-98.0); Mean Platelet Volume 11.6 fL (7.4-10.4); Platelet Count 197 10x3/uL (130-400); RBC Distribution Width 17.3 % (11.5-14.5); Red Blood Cell (RBC) Count 3.82 mill/uL (4.20-5.40)
[2024-07-04 05:57] LABS: Anion Gap 15 mmol/L (10-20); BUN (Urea Nitrogen) 17 mg/dL (9.8-20.1); Calc. Creatinine Clearance 12 mL/min (70-130); Calcium 9.5 mg/dL (7.8-10.44); Carbon Dioxide 26 mmol/L (23-31); Chloride 98 mmol/L (98-107); Estimated GFR 11; Glucose 128 mg/dL (83-110); Potassium 4.2 mmol/L (3.5-5.1); Sodium 135 mmol/L (136-145)
[2024-07-04 16:54] VITALS: BP 169/74; TEMP 98.8
== END 2024-07-04 18:20 | disposition home health service (06) | DRG 871 ==
LOC: ERS 20:42 → ERHOLD 06-24 00:08 → CCU 06-24 04:39 → IMCU/EMU 06-25 12:45 → 2NO 06-30 13:37
PROVIDERS: ADMIT Student in an Organized Health Care Education/Training Program; ATTEND Student in an Organized Health Care Education/Training Program
PROC: 3E03329 Introduction of Other Anti-infective into Peripheral Vein, Percutaneous Approach (ICD-10-PCS; 2024-06-23)
PROC: 4A033R1 Measurement of Arterial Saturation, Peripheral, Percutaneous Approach (ICD-10-PCS; principal; 2024-06-24)
PROC: 30233J1 Transfusion of Nonautologous Serum Albumin into Peripheral Vein, Percutaneous Approach (ICD-10-PCS; 2024-06-24)
PROC: 5A0945A Assistance with Respiratory Ventilation, 24-96 Consecutive Hours, High Flow/Velocity Cannula (ICD-10-PCS; 2024-06-24)
PROC: 5A09457 Assistance with Respiratory Ventilation, 24-96 Consecutive Hours, Continuous Positive Airway Pressure (ICD-10-PCS; 2024-06-24)
DX: A41.9 Sepsis, unspecified organism (principal); J18.9 Pneumonia, unspecified organism; J96.01 Acute respiratory failure with hypoxia; N18.6 End stage renal disease; I12.0 Hypertensive chronic kidney disease with stage 5 chronic kidney disease or end stage renal disease; I5A Non-ischemic myocardial injury (non-traumatic); E87.3 Alkalosis; R65.20 Severe sepsis without septic shock; E11.22 Type 2 diabetes mellitus with diabetic chronic kidney disease; F32.A Depression, unspecified; Z99.2 Dependence on renal dialysis; Z88.8 Allergy status to other drugs, medicaments and biological substances; D63.8 Anemia in other chronic diseases classified elsewhere; E88.09 Other disorders of plasma-protein metabolism, not elsewhere classified; H10.9 Unspecified conjunctivitis
CPT/HCPCS: 36415; 36416; 36600; 71045; 74230; 80048; 80053; 80202; 82805; 83036; 83605; 83880; 84484; 85025; 86141; 86704; 86706; 86803; 87040; 87081; 87340; 87428; 87633; 90935; 93005; 94640; 94660; 94760; 96365; 96367; 96368; 96375; G0257; J0360; J0456; J0692; J1644; J1815; J2272; J2405; J2470; J2543; J2550; J2919; J3370; J7050; J7620; J7626; P9047; Q5105